=== PATIENT | female | born 1945 | race Caucasian/White ===

== ENCOUNTER 2018-05-27 17:46 | Emergency (ER) | payer OTHER ==
--- OUTSIDE RECORDS SUMMARY | 2018-05-27 17:48 | XMS REPORT ---
:1945 Author Organization eClinicalWorks Care Team Providers Name Role Phone Lorenza Nelson Provider Role Unavailable Allergies, Adverse Reactions, Alerts Substance Reaction Event Type N.K.D.A. Info Not Available Non Drug Allergy Problems Problem Type Condition Code Onset Dates Condition Status Problem Bladder mass N32.89 Active Problem Kidney stones N20.0 Active Assessment Kidney stones N20.0 Active Medications Medication Code Code Instructions Start End Status Dosage System Date Date Lisinopril [facility] 37438799102 5 MG Orally Active 1 tablet Once a day Pravastatin ND 80140045324 40 MG Orally Active 1 tablet Sodium Once a day Glimepiride ND 77077407926 1 MG Orally Active 1 tablet Once a day with breakfast or the first main meal of the day Cinnamon ND 89374890277 500 MG Orally Active not defined Antihistamine NDC 0 Active not defined [facility] 30646929000 - Orally Active not defined Gabapentin ND 64042077644 300 MG Orally Active 1 capsule Once a day before bedtime Results Name Result Date Reference Range Unit Abnormality Flag Uric Acid ----Uric Acid 4.3 20180321 2.6-6.0 mg/dL PTH Intact ----PTH Intact 32 20180321 12-88 pg/mL Summary Purpose eClinicalWorks Submission
--- OUTSIDE RECORDS SUMMARY | 2018-05-27 17:48 | XMS REPORT | Clinical Summary ---
:1945 Author Organization [employer] Address [address] [place] [address] Care Team Providers Name Role Phone Stevie Pack MD Primary Care Provider Allergies No Known Allergies Current Medications Prescription Sig. Disp. Refills Start Date End Date Status sodium,potassium,mag Take as directed 354 mL 0 01/11/2018 Active sulfates (SUPREP BOWEL by Physician. PREP KIT) 17.5-3.13-1.6 gram recon soln glimepiride (AMARYL) 1 MG Take 1 mg by mouth Active tablet daily before breakfast. gabapentin (NEURONTIN) Take 300 mg by Active 300 mg capsule mouth 3 (three) times a day. lisinopril Take 5 mg by mouth Active (PRINIVIL,ZESTRIL) 5 mg daily. tablet pravastatin (PRAVACHOL) Take 40 mg by Active 40 MG tablet mouth daily. traMADol (ULTRAM) 50 mg Take 50 mg by Active tablet mouth every 6 (six) hours as needed for moderate pain. cinnamon bark (CINNAMON) Take 500 mg by Active 500 mg capsule mouth daily. diphenhydrAMINE Take 25 mg by Active (BENADRYL) 25 mg tablet mouth nightly as needed for sleep. Active Problems Problem Noted Date Adenomatous polyp of descending colon 01/21/2018 Encounters Date Type Specialty Care Team Description 02/01/2018 Telephone General Surgery Leidy Haynes NP-C 01/21/2018 Hospital Encounter Gastroenterology Dallin Rosenthal MD 01/21/2018 Procedure Pass Gastroenterology 01/21/2018 Anesthesia Event Gastroenterology Stephan Manzo MD 01/21/2018 Procedure Pass Gastroenterology 01/21/2018 Surgery Gastroenterology Dallin Rosenthal COLONOSCOPY WITH MD Angelo POLYPECTOMY 01/11/2018 Orders Only General Surgery Patria Strauss MA 12/14/2017 Office Visit General Surgery Dallin Rosenthal Full incontinence of feces (Primary Dx); MD Angelo Polyp of descending colon, unspecified type after 05/26/2017 Family History Medical History Relation Name Comments Cancer Father Hypertension Father Stroke Father Cancer Mother Hypertension Mother Cancer Sister Diabetes Sister Relation Name Status Comments Father Mother Sister Social History Tobacco Use Types Packs/Day Years Used Date Never Smoker Smokeless Tobacco: Never Used Alcohol Use Drinks/Week oz/Week Comments No Sex Assigned at Date Recorded Not on file Last Filed Vital Signs Vital Sign Reading Time Taken Blood Pressure 145/63 01/21/2018 4:15 PM CDT Pulse 64 01/21/2018 4:15 PM CDT Temperature 36.9 C (98.5 F) 01/21/2018 4:15 PM CDT Respiratory Rate 27 01/21/2018 4:15 PM CDT Oxygen Saturation 99% 01/21/2018 4:15 PM CDT Inhaled Oxygen Concentration - - Weight 107 kg (236 lb) 01/21/2018 11:45 AM CDT Height 165.1 cm (5' 5") 01/21/2018 11:45 AM CDT Body Mass Index 39.27 01/21/2018 11:45 AM CDT Plan of Treatment Health Maintenance Due Date Last Done Comments BREAST CANCER SCREENING 1997 COLON CANCER SCREENING 1997 SHINGRIX VACCINE (#1) 1997 ZOSTER VACCINE 2007 PNEUMOCOCCAL POLYSACCHARIDE VACCINE AGE 65 AND OVER 2012 PNEUMOCOCCAL-13 2012 INFLUENZA VACCINE 04/17/2018 Implants Implanted Type Area Medical Scheduler Device Expiration Model / Identifier Date Serial / Lot Clip Resolution 360 Mr Cndtl 235cm 2.8mm 11mm Opening - [id number] Surgical N /A: N/A BSC ENDOSCOPY [id number] / Implanted: 01/21/2018 (Quantity not on file) Implants; / Expanders; Extenders; Surgical Wires Procedures Procedure Name Priority Date/Time Associated Comments Diagnosis SURGICAL PATHOLOGY Routine 01/21/2018 4:30 Results for this REQUEST PM CDT procedure are in the results section. COLONOSCOPY 01/21/2018 1:52 Colon polyp PM CDT POC GLUCOSE Routine 01/21/2018 11:54 Results for this AM CDT procedure are in the results section. after 05/26/2017 Results Surgical pathology request (01/21/2018 4:30 PM) [facility] DEPARTMENT OF PATHOLOGY AND GENOMIC MEDICINE Surgical pathology report See link below for PDF [facility] DEPARTMENT OF Lab Report PATHOLOGY AND GENOMIC MEDICINE Result status This is Final Report to [facility] DEPARTMENT OF [id number] PATHOLOGY AND GENOMIC MEDICINE Performing Organization Address City/[facility] Phone Number [facility] DEPARTMENT OF PATHOLOGY AND [address] [place] [id number] GENOMIC MEDICINE POC glucose (01/21/2018 11:54 AM) POC glucose 105 (H) 65 - 99 mg/dL [facility] DEPARTMENT OF PATHOLOGY AND Comment: GENOMIC MEDICINE Meter ID: [id number] Neurology Tech: Gabriella Schaeffer Performing Organization Address City/State/Zipcode Phone Number [facility] DEPARTMENT OF PATHOLOGY AND [address] [place] [phone] GENOMIC MEDICINE after 05/26/2017 Insurance Payer Benefit Plan / Group Subscriber ID Type Phone Address MEDICARE MEDICARE PART A AND B xxxxxxxxxx Medicare [place], [place] [employer] AND [employer] AND xxxxxxxxx Commercial CASUALTY CASUALTY Home: [address] [place] [id number] [place], [place] [phone]
--- OUTSIDE RECORDS SUMMARY | 2018-05-27 17:48 | XMS REPORT ---
[...] Start End Status Dosage System Date Date [facility] 43929760011 - Orally Active not defined Gabapentin ND 18684334928 300 MG Orally Active 1 capsule Once a day before bedtime Glimepiride ND 70809932137 1 MG Orally Active 1 tablet Once a day with breakfast or the first main meal of the day Pravastatin ND 52455664899 40 MG Orally Active 1 tablet Sodium Once a day Cinnamon ND 50619559642 500 MG Orally Active not defined Antihistamine NDC 0 Active not defined Lisinopril ND 01826028213 5 MG Orally Active 1 tablet Once a day Results No Known Results Summary Purpose eClinicalWorks Submission
[2018-05-27] MEDS ORDERED: TETANUS & DIPHTHERIA TOX,ADULT 0.5 ML VIAL ONE (18:05)
--- NOTE | 2018-05-27 18:08 | ER ---
Nurse's Notes [facility] Name: Laury Alfred Age: 72 yrs Sex: Female : 1945 Arrival Date: 05/27/2018 Time: 17:47 Bed DIS1 Private MD: Stevie Latham R Diagnosis: Abrasion of knee Presentation: 05/27 17:48 Presenting complaint: Patient states: i slipped and fell in front of the ED, denies hj hitting head and LOC; visible abrasions on bilateral leg;. Transition of care: patient was not received from another setting of care. Onset of symptoms was May 27, 2018. Risk Assessment: Do you want to hurt yourself or someone else? Patient reports no desire to harm self or others. Initial Sepsis Screen: Does the patient meet any 2 criteria? No. Patient's initial sepsis screen is negative. Does the patient have a suspected source of infection? No. Patient's initial sepsis screen is negative. Care prior to arrival: None. 17:48 Method Of Arrival: Ambulatory 17:48 Acuity: SUKH 4 17:57 Mechanism of Injury: Fall. Trauma event details: Injury occurred in the [facility], Injury occurred: in a public building. Injury occurred: May 27, 2018. Triage Assessment: 17:53 General: Appears in no apparent distress. uncomfortable, Behavior is calm, cooperative, hj appropriate for age. Pain: Complains of pain in right leg and left leg. Trauma Activation: Not Applicable Physician: ED Physician; Name: ; Notified At: ; Arrived At: Physician: General Surgeon; Name: ; Notified At: ; Arrived At: Physician: Radiology; Name: ; Notified At: ; Arrived At: Physician: Respiratory; Name: ; Notified At: ; Arrived At: Physician: Lab; Name: ; Notified At: ; Arrived At: Historical: - Allergies: 17:53 No Known Allergies; - Home Meds: 17:53 gabapentin 100 mg Oral cap 4 caps daily [Active]; glimepiride 1 mg Oral tab 1 tab once hj daily [Active]; lisinopril 5 mg Oral tab 1 tab once daily [Active]; meloxicam 7.5 mg Oral tab 1 tab once daily [Active]; metformin 1,000 mg Oral tab 1 tab 2 times per day [Active]; pravastatin 40 mg Oral tab 1 tab once daily [Active]; - PMHx: 17:53 Diabetes - NIDDM; High Cholesterol; Hypertension; neuropathy; spinal stenosis; hj Non-Hodgkins Lymphona; - PSHx: 17:53 Tubal ligation; Small Intestine; Hysterectomy; Hernia repair; hj - Immunization history:: Adult Immunizations up to date. - Social history:: Smoking status: Patient/guardian denies using tobacco, Patient/guardian denies using alcohol, street drugs, The patient lives with family. - Immunization history: Last tetanus immunization: unknown. - Ebola Screening: : Patient negative for fever greater than or equal to 101.5 degrees Fahrenheit, and additional compatible Ebola Virus Disease symptoms Patient denies exposure to infectious person Patient denies travel to an Ebola-affected area in the 21 days before illness onset. - Family history:: not pertinent. Screenin:54 Abuse screen: Denies threats or abuse. Denies injuries from another. Nutritional hj screening: No deficits noted. Tuberculosis screening: No symptoms or risk factors identified. Fall Risk None identified. Primary Survey: 17:50 A: Airway: patent, No supplemental oxygen in use on arrival. Oral cavity: clear, gag hj reflex present, Trachea midline. Breathing/Chest: Respiratory pattern: regular, Respiratory effort: spontaneous, unlabored, Breath sounds: clear, bilaterally. Chest inspection: symmetrical rise and fall of the chest. Circulation: Cardiac rhythm: sinus rhythm Heart tones present. Pulses: palpable right radial artery and left radial artery. Skin color: pink, Skin temperature: warm, dry. Disability Alert. 17:56 Reassessment Airway Airway Patent Oxygen No O2 Oral cavity Clear +Gag reflex Trachea hj Midline Breathing/Chest Respiratory pattern Regular Respiratory effort Spontaneous Unlabored Breath sounds Clear Chest inspection Symmetrical Circulation Heart rhythm Sinus rhythm Heart tones Present Pulses Palpable Color [place] Temperature Warm Dry Disability Alert. Vital Signs: 17:54 BP 157 / 88; Pulse 66; Resp 18; Temp 98.1(O); Pulse Ox 97% on R/A; Weight 102.06 kg; hj Height 5 ft. 5 in. (165.10 cm); Pain 4/10; 17:54 Body Mass Index 37.44 (102.06 kg, 165.10 cm) Alfred Coma Score: 17:54 Eye Response: spontaneous(4). Verbal Response: oriented(5). Motor Response: obeys hj commands(6). Total: 15. Trauma Score (Adult): 17:54 Eye Response: spontaneous(1); Verbal Response: oriented(1); Motor Response: obeys hj commands(2); Systolic BP: > 89 mm Hg(4); Respiratory Rate: 10 to 29 per min(4); Pavan Score: 15; Trauma Score: 12 ED Course: 17:47 Patient arrived in ED. rg4 17:47 Stevie Latham MD is Private Physician. rg4 17:48 Fernando Mcgee RN is Primary Nurse. hj 17:48 Jazz Conrad MD is Attending Physician. ma2 17:49 Triage completed. hj 17:57 Arm band placed on right wrist. hj 17:57 Patient has correct armband on for positive identification. Bed in low position. Call hj light in reach. Side rails up X 1. Adult w/ patient. 17:57 Patient maintains SpO2 saturation greater than 95% on room air. hj 17:58 Thermoregulation: warm blanket given to patient. hj 18:06 Wound care: to road rash. 5 18:07 Pulse ox on. NIBP on. 5 18:21 No provider procedures requiring assistance completed. Patient did not have IV access hj during this emergency room visit. Administered Medications: 17:49 Drug: Tetanus-Diphtheria Toxoid Adult 0.5 ml {Insurance Agents Supervisor: [employer]. Exp: 06/05/2021. Lot #: [id number]. } Route: IM; Site: left deltoid; 18:04 Follow up: Response: No adverse reaction hj Intake: 18:22 PO: 0ml; Total: 0ml. hj Output: 18:22 Urine: 0ml; Total: 0ml. hj Outcome: 18:08 Discharge ordered by . ma2 18:21 Discharged to home ambulatory. hj 18:21 Condition: stable 18:21 Discharge instructions given to patient, family, Instructed on discharge instructions, follow up and referral plans. wound care, Demonstrated understanding of instructions, follow-up care, wound care. 18:22 Patient's length of stay was not longer than 2 hours. hj 18:22 Patient left the ED. Signatures: Fernando Mcgee RN RN hj Garcia, Rubi 4 Shruti Sal [facility] Alzahri, Mohammad, MD MD ma2
--- NOTE | 2018-05-27 18:08 | EDPHYS ---
Physician Documentation [facility] Name: Laury Alfred Age: 72 yrs Sex: Female : 1945 Arrival Date: 05/27/2018 Time: 17:47 Bed DIS1 Private MD: Stevie Latham R ED Physician Jazz Conrad HPI: 05/27 18:05 This 72 yrs old Female presents to ER via Ambulatory with complaints of Fall ma2 Injury. 18:05 Details of fall: The patient fell from an upright position. Onset: The symptoms/episode ma2 began/occurred suddenly, 1 hour(s) ago. Associated injuries: The patient sustained both knees. Severity of symptoms: At their worst the symptoms were mild, in the emergency department the symptoms are unchanged. The patient has not experienced similar symptoms in the past. tripped and fell on both knees has abrasion . Historical: - Allergies: 17:53 No Known Allergies; hj - Home Meds: 17:53 gabapentin 100 mg Oral cap 4 caps daily [Active]; glimepiride 1 mg Oral tab 1 tab once hj daily [Active]; lisinopril 5 mg Oral tab 1 tab once daily [Active]; meloxicam 7.5 mg Oral tab 1 tab once daily [Active]; metformin 1,000 mg Oral tab 1 tab 2 times per day [Active]; pravastatin 40 mg Oral tab 1 tab once daily [Active]; - PMHx: 17:53 Diabetes - NIDDM; High Cholesterol; Hypertension; neuropathy; spinal stenosis; hj Non-Hodgkins Lymphona; - PSHx: 17:53 Tubal ligation; Small Intestine; Hysterectomy; Hernia repair; hj - Immunization history:: Adult Immunizations up to date. - Social history:: Smoking status: Patient/guardian denies using tobacco, Patient/guardian denies using alcohol, street drugs, The patient lives with family. - Immunization history: Last tetanus immunization: unknown. - Ebola Screening: : Patient negative for fever greater than or equal to 101.5 degrees Fahrenheit, and additional compatible Ebola Virus Disease symptoms Patient denies exposure to infectious person Patient denies travel to an Ebola-affected area in the 21 days before illness onset. - Family history:: not pertinent. ROS: 18:05 Skin: Positive for abrasion(s), Negative for abscesses, avulsion, diaphoresis, ma2 ecchymosis, rash, ulceration. 18:05 All other systems are negative. 18:08 Constitutional: Negative for fever, chills, and weight loss. ma2 Exam: 18:05 Constitutional: This is a well developed, well nourished patient who is awake, alert, ma2 and in no acute distress. Head/Face: Normocephalic, atraumatic. Chest/axilla: Normal chest wall appearance and motion. Nontender with no deformity. No lesions are appreciated. Cardiovascular: Regular rate and rhythm with a normal S1 and S2. No gallops, murmurs, or rubs. Normal PMI, no JVD. No pulse deficits. Respiratory: Lungs have equal breath sounds bilaterally, clear to auscultation and percussion. No rales, rhonchi or wheezes noted. No increased work of breathing, no retractions or nasal flaring. Neuro: Awake and alert, GCS 15, oriented to person, place, time, and situation. Cranial nerves II-XII grossly intact. Motor strength 5/5 in all extremities. Sensory grossly intact. Cerebellar exam normal. Normal gait. 18:05 Musculoskeletal/extremity: ROM: intact in all extremities, Circulation is intact in all extremities. Pulses: Sensation intact. has abrasion of both knees . Vital Signs: 17:54 BP 157 / 88; Pulse 66; Resp 18; Temp 98.1(O); Pulse Ox 97% on R/A; Weight 102.06 kg; hj Height 5 ft. 5 in. (165.10 cm); Pain 4/10; 17:54 Body Mass Index 37.44 (102.06 kg, 165.10 cm) [place] Coma Score: 17:54 Eye Response: spontaneous(4). Verbal Response: oriented(5). Motor Response: obeys commands(6). Total: 15. Trauma Score (Adult): 17:54 Eye Response: spontaneous(1); Verbal Response: oriented(1); Motor Response: obeys commands(2); Systolic BP: > 89 mm Hg(4); Respiratory Rate: 10 to 29 per min(4); Pavan Score: 15; Trauma Score: 12 MDM: 18:04 Patient medically screened. ma2 18:05 Differential diagnosis: abrasion, contusion, sprain, strain. Data reviewed: vital ma2 signs, nurses notes. Counseling: I had a detailed discussion with the patient and/or guardian regarding: the historical points, exam findings, and any diagnostic results supporting the discharge/admit diagnosis, the presence of at least one elevated blood pressure reading (>120/80) during this emergency department visit, the need for outpatient follow up. Response to treatment: the patient's symptoms have markedly improved after treatment. 05/27 17:49 Order name: Wound Care; Complete Time: 17:58 ma2 Administered Medications: 17:49 Drug: Tetanus-Diphtheria Toxoid Adult 0.5 ml {C 13 Catapult Operator: [employer]. Exp: hj 06/05/2021. Lot #: [id number]. } Route: IM; Site: left deltoid; 18:04 Follow up: Response: No adverse reaction Disposition: 05/27/18 18:08 Discharged to Home. Impression: Abrasion of knee. - Condition is Stable. - Discharge Instructions: Abrasion. - Medication Reconciliation Form, Thank You Letter, Antibiotic Education, Prescription Opioid Use form. - Follow up: Private Physician; When: Tomorrow; Reason: Continuance of care. - Problem is new. - Symptoms are resolved. Signatures: Fernando Mcgee RN RN hj Alzahri, Mohammad, MD MD ma2 Corrections: (The following items were deleted from the chart) 18:22 18:08 05/27/2018 18:08 Discharged to Home. Impression: Abrasion of knee. Condition is hj Stable. Forms are Medication Reconciliation Form, Thank You Letter, Antibiotic Education, Prescription Opioid Use. Follow up: Private Physician; When: Tomorrow; Reason: Continuance of care. Problem is new. Symptoms are resolved. ma2
[2018-05-27 18:27] VITALS: BP 157/88; TEMP 98.1; O2SAT 97
== END 2018-05-27 18:22 | disposition home or self-care (01) ==
LOC: ER 17:46
DX: S80.212A Abrasion, left knee, initial encounter (principal); S80.211A Abrasion, right knee, initial encounter; W01.0XXA Fall on same level from slipping, tripping and stumbling without subsequent striking against object, initial encounter; Y93.9 Activity, unspecified; Y92.9 Unspecified place or not applicable; Z23 Encounter for immunization; Z85.72 Personal history of non-Hodgkin lymphomas; I10 Essential (primary) hypertension; E11.9 Type 2 diabetes mellitus without complications; E78.00 Pure hypercholesterolemia, unspecified
CPT/HCPCS: 90714; 99284

== ENCOUNTER 2018-10-25 06:03 | Emergency (ER) | payer OTHER ==
--- OUTSIDE RECORDS SUMMARY | 2018-10-25 06:06 | XMS REPORT ---
[...] End Status Dosage System Date Date Lisinopril [facility] 52663285013 5 MG Orally Active 1 tablet Once a day Pravastatin ND 91926218106 40 MG Orally Active 1 tablet Sodium Once a day Glimepiride ND 88982650221 1 MG Orally Active 1 tablet Once a day with breakfast or the first main meal of the day Cinnamon ND 28395002893 500 MG Orally Active not defined Antihistamine NDC 0 Active not defined [facility] 58458526172 - Orally Active not defined Gabapentin ND 58221777201 300 MG Orally Active 1 capsule Once a day before bedtime Results Name Result Date Reference Range Unit Abnormality Flag Uric Acid ----Uric Acid 4.3 [id number] 2.6-6.0 mg/dL PTH Intact ----PTH Intact 32 20180321 12-88 pg/mL Summary Purpose eClinicalWorks Submission
--- OUTSIDE RECORDS SUMMARY | 2018-10-25 06:06 | XMS REPORT | Clinical Summary ---
:1945 Author Organization [employer] Address [address] [place] [address] Care Team Providers Name Role Phone Stevie Pack MD Primary Care Provider Allergies No Known Allergies Medications Medication Sig Dispensed Refills Start Date End Date Status sodium,potassium,mag Take as directed 354 mL 0 01/11/2018 Active sulfates (SUPREP BOWEL by Physician. PREP KIT) 17.5-3.13-1.6 gram recon soln glimepiride (AMARYL) 1 Take 1 mg by 0 Active MG tablet mouth daily before breakfast. gabapentin (NEURONTIN) Take 300 mg by 0 Active 300 mg capsule mouth 3 (three) times a day. lisinopril Take 5 mg by 0 Active (PRINIVIL,ZESTRIL) 5 mg mouth daily. tablet pravastatin (PRAVACHOL) Take 40 mg by 0 Active 40 MG tablet mouth daily. traMADol (ULTRAM) 50 mg Take 50 mg by 0 Active tablet mouth every 6 (six) hours as needed for moderate pain. cinnamon bark (CINNAMON) Take 500 mg by 0 Active 500 mg capsule mouth daily. diphenhydrAMINE Take 25 mg by 0 Active (BENADRYL) 25 mg tablet mouth nightly as needed for sleep. Active Problems Problem Noted Date Adenomatous polyp of descending colon 01/21/2018 Encounters Date Type Specialty Care Team Description 02/01/2018 Telephone General Surgery Leidy Haynes NP-C 01/21/2018 Anesthesia Event Gastroenterology Stephan Manzo MD 01/21/2018 Surgery Gastroenterology Dallin Rosenthal COLONOSCOPY WITH MD Angelo POLYPECTOMY 01/21/2018 Hospital Encounter Gastroenterology Dallin Rosenthal MD 01/11/2018 Orders Only General Surgery Patria Strauss MA 12/14/2017 Office Visit General Surgery Dallin Rosenthal Full incontinence of feces (Primary Dx); MD Angelo Polyp of descending colon, unspecified type after 10/24/2017 Family History Medical History Relation Name Comments Cancer Father Hypertension Father Stroke Father Cancer Mother Hypertension Mother Cancer Sister Diabetes Sister Relation Name Status Comments Father Mother Sister Social History Tobacco Use Types Packs/Day Years Used Date Never Smoker Smokeless Tobacco: Never Used Alcohol Use Drinks/Week oz/Week Comments No Sex Assigned at Date Recorded Not on file Job Start Date Occupation Industry Not on file Not on file Not on file Travel History Travel Start Travel End No recent travel history available. Last Filed Vital Signs Vital Sign Reading [...] CANCER SCREENING 1997 COLON CANCER SCREENING 1997 SHINGLES VACCINES (1 of 2) 1997 PNEUMOCOCCAL POLYSACCHARIDE VACCINE AGE 65 AND OVER 2012 PNEUMOCOCCAL-13 2012 INFLUENZA VACCINE 04/17/2018 Implants Implanted Type Area Coding Advisor Device Shelf Model / Identifier Expiration Serial / Date Lot Clip Resolution 360 Mr Cndtl 235cm 2.8mm 11mm Opening - [id number] Surgical N /A: N/A [employer] ENDOSCOPY [id number] / Implanted: 01/21/2018 (Quantity not on file) Implants; / Expanders; Extenders; Surgical Wires Procedures Procedure Name Priority Date/Time Associated Comments Diagnosis SURGICAL PATHOLOGY Routine 01/21/2018 4:30 Results for this REQUEST PM CDT procedure are in the results section. COLONOSCOPY 01/21/2018 1:52 Colon polyp PM CDT POC GLUCOSE Routine 01/21/2018 11:54 Results for this AM CDT procedure are in the results section. after 10/24/2017 Results Surgical pathology request (01/21/2018 4:30 PM CDT) [facility] DEPARTMENT OF PATHOLOGY AND GENOMIC MEDICINE Surgical pathology report See link below for PDF [facility] DEPARTMENT OF Lab Report PATHOLOGY AND GENOMIC MEDICINE Result status This is Final Report to [facility] DEPARTMENT OF [id number] PATHOLOGY AND GENOMIC MEDICINE Performing Organization Address City/[facility] Phone Number [facility] DEPARTMENT OF PATHOLOGY AND [address] [place] [address] GENOMIC MEDICINE POC glucose (01/21/2018 11:54 AM CDT) POC glucose 105 (H) 65 - 99 mg/dL [facility] DEPARTMENT OF PATHOLOGY AND Comment: GENOMIC MEDICINE Meter ID: [id number] Technician Biological Health: Gabriella Schaeffer Performing Organization Address City/[facility] Phone Number [facility] DEPARTMENT OF PATHOLOGY AND [address] [place] [address] GENOMIC MEDICINE after 10/24/2017 Insurance Payer Benefit Plan / Group Subscriber ID Type Phone Address MEDICARE MEDICARE PART A AND B xxxxxxxxxx Medicare [place], [place] [employer] AND xxxxxxxxx Commercial CASUALTY CASUALTY ([place]) [place] [address] Advance Directives Patient has advance care planning documents on file. For more information, please contact:Evgeny Mares[address] [place] [phone]
--- OUTSIDE RECORDS SUMMARY | 2018-10-25 06:06 | XMS REPORT | Continuity of Care Document ---
:1945 Author Organization Interface Problems Problem Status Onset Date Classification Date Comments Source Reported Medications Medication Details Route Status Patient Ordering Order Source Instructions Provider Date Allergies, Adverse Reactions, Alerts Substance Category Reaction Severity Reaction Status Date Comments Source type Reported Immunizations Immunization Date Given Site Status Last Updated Comments Source Results Order Results Value Reference Date Interpretation Comments Source Name Range Vital Signs Vital Sign Value Date Comments Source Encounters Location Location Encounter Encounter Reason Attending ADM DC Status Source Details Type Number For Provider Date Date Visit Outpatient [id number] [facility] [facility] Procedures Procedure Code Date Perfomer Comments Source
--- OUTSIDE RECORDS SUMMARY | 2018-10-25 06:06 | XMS REPORT ---
[...] Status Dosage System Date Date [facility] [id number] - Orally Active not defined Gabapentin ND 97228302952 300 MG Orally Active 1 capsule Once a day before bedtime Glimepiride ND 76365332183 1 MG Orally Active 1 tablet Once a day with breakfast or the first main meal of the day Pravastatin ND 47638594367 40 MG Orally Active 1 tablet Sodium Once a day Cinnamon ND 71173423682 500 MG Orally Active not defined Antihistamine NDC 0 Active not defined Lisinopril ND 62014144266 5 MG Orally Active 1 tablet Once a day Results No Known Results Summary Purpose eClinicalWorks Submission
[2018-10-25 06:37] LABS: Absolute Monocytes 0.5 K/uL (0.1-1.3); Absolute Neutrophil 5.5 K/uL (1.8-8.0); Basophils % 0.8 % (0-1.3); Eosinophils % 1.9 % (0-4.4); Hematocrit 41.3 % (36.0-45.0); Lymphocytes % 24.2 % (15.3-44.8); MPV 7.9 fL (7.6-11.3); Monocytes % 6.6 % (3.3-12.3); RBC Red Blood Cell Count 4.72 M/uL (3.86-4.86)
[2018-10-25 06:41] LABS: Protime INR 1.02
[2018-10-25 06:54] LABS: ALT/SGPT 20 U/L (12-78); AST/SGOT 14 U/L (15-37); Alkaline Phosphatase 77 U/L (45-117); BUN Blood Urea Nitrogen 15 mg/dL (7-18); Bicarbonate 27 mmol/L (21-32); Bilirubin Direct 0.1 mg/dL (0-0.2); Bilirubin Total 0.4 mg/dL (0.2-1.0); Glucose Level 122 mg/dL (74-106); Magnesium 1.8 mg/dL (1.8-2.4); NT PRO-BNP 72 pg/mL (<125); Potassium 3.7 mmol/L (3.5-5.1); Protein, Total 7.4 g/dL (6.4-8.2); Sodium Level 144 mmol/L (136-145); Troponin (Emerg Dept Use Only) < 0.02 ng/mL (0.0-0.045)
[2018-10-25] MEDS ORDERED: NA CHLORIDE 0.9% 500 ML ONE (07:53)
--- NOTE | 2018-10-25 08:13 | RAD REPORT ---
EXAM DESCRIPTION: CT - Head C Spine Mpr Wo Con - 10/25/2018 6:50 am CLINICAL HISTORY: Syncope. Head and neck injury status post fall. Head and neck pain COMPARISON: [address] TECHNIQUE: Computed axial tomography of the head and cervical spine was obtained. Sagittal and coronal reconstruction was performed. All CT scans are performed using dose optimization technique as appropriate and may include automated exposure control or mA/KV adjustment according to patient size. FINDINGS: An intracranial bleed is not seen. The ventricles are normal in caliber. An extra-axial fl uid collection is not noted.Fluid within the visualized sinuses and mastoids is not seen A cervical fracture is not visualized. No dislocation is noted. Spondylosis C6-7 results in mild cent ral spinal stenosis IMPRESSION: No acute intracranial abnormality is seen. A cervical fracture is not visualized. If the patient continues to have symptoms to suggest intracra nial /spinal cord pathology then MRI would be recommended
--- NOTE | 2018-10-25 08:17 | EKG ---
Test Date: 2018-10-25 Test Time: 06:18:44 Full Time Babysitter: LULI MEASUREMENT RESULTS: Intervals: Rate: 59 PA: 182 QRSD: 90 QT: 448 QTc: 443 [place]: P: 63 PA: 182 QRS: 21 T: 29 INTERPRETIVE STATEMENTS: Sinus bradycardia Possible Septal infarct, age undetermined Abnormal ECG Compared to ECG 11/21/2014 15:12:11 Questionable myocardial infarct finding now present Sinus rhythm no longer present Electronically Signed On 10-25-18 08:16:44 CAN CARRIER by Oscar Frost
--- NOTE | 2018-10-25 08:45 | RAD REPORT ---
EXAM DESCRIPTION: Faustina Single View10/25/2018 7:08 am CLINICAL HISTORY: Chest pain COMPARISON: 2014 FINDINGS: The lungs appear clear of acute infiltrate. The heart is normal size IMPRESSION: No acute abnormalities displayed
[2018-10-25 08:55] LABS: Urine Bacteria 20-50 /HPF (<20); Urine Culture Reflex Order NOT NEEDED; Urine RBC <5 /HPF (NONE SEEN)
--- NOTE | 2018-10-25 09:47 | RAD REPORT ---
EXAM DESCRIPTION: USCarotid Artery Bilateral10/25/2018 8:48 am CLINICAL HISTORY: Syncope COMPARISON: None FINDINGS: The velocity of the right internal carotid artery equals 86 cm/sec. The right ICA/CCA rati o 1.4 The velocity of the left internal carotid artery equals 116 cm/sec. The left ICA/CCA ratio 2.3 Mild plaque is present within the carotid arteries. The vertebral arteries demonstrate antegrade flow IMPRESSION: Mild plaque within the carotid arteries without evidence of a hemodynamically significan t stenosis NASCET criteria used. Mild 0-49% stenosis Moderate 50-69% stenosis Severe 70-99% stenosis
--- NOTE | 2018-10-25 11:11 | RAD REPORT ---
EXAM DESCRIPTION: MRI - MRA Head Wo Cont - 10/25/2018 10:59 am CLINICAL HISTORY: Syncope, fall, stroke-like symptoms COMPARISON: None. TECHNIQUE: Axial and coronal 3D kqkz-rt-[id number] image acquisition was performed. 3D rotational images were generated with source and reconstruction images reviewed. Horizontal and vertical axis rotation al views generated using MIP protocol. FINDINGS: No aneurysm or vascular malformation. No significant atherosclerotic changes identified. B asilar artery and distal vertebral artery show no suspicious findings. Distal internal carotid artery 's also without significant finding or disease. Imaging is extended to internal carotid artery origin s. No significant luminal narrowing identified in either internal carotid artery from origin to supra clinoid termination. No dissection findings. Imaged portions of the vertebral arteries also without s ignificant disease. IMPRESSION: MRA Head imaging shows no occlusion, significant stenosis or other significant intracran ial finding.
--- NOTE | 2018-10-25 11:17 | RAD REPORT ---
EXAM DESCRIPTION: MRI - Brain W/Wo Cont - 10/25/2018 11:00 am CLINICAL HISTORY: Syncope stroke-like symptoms, fall with head injury COMPARISON: CT head October 25, MRI May 2015 TECHNIQUE: Sagittal and axial T1-weighted images were obtained. Axial PD/heavily T2-weighted and T2- FLAIR images were obtained along with axial DWI/ADC mapping sequences. Coronal heavily T2 weighted s equence obtained. Axial and coronal post-contrast T1-weighted images were also obtained. A 19 ml Mul tihance contrast following utilized. FINDINGS: No intracranial hemorrhage, mass or acute infarction. There is no edema or shift of midli ne structures. No extra-axial fluid collections. Rahman-matter/white matter junction is preserved. Sig nal voids are seen as a normal finding in the major intracranial vessels. No significant atrophy godwin ges are present. Patient has scattered chronic ischemic change in the cerebral white matter primarily left frontal lobe. Pattern is not substantially different from the 2015 MRI study. Ventricles are no rmal. No globe or orbital content abnormality. Post-contrast images show normal enhancement. No dural thickening. Mastoid air cells and paranasal sinuses are clear. IMPRESSION: No acute infarction changes are present. No acute intracranial finding seen. Mild chronic ischemic changes primarily left frontal lobe similar or only minimally progressive from 2015 MRI.
--- NOTE | 2018-10-25 11:19 | RAD REPORT ---
EXAM DESCRIPTION: MRI - MRA Neck W/Wo Cont - 10/25/2018 11:11 am CLINICAL HISTORY: Syncope, fall, stroke-like symptoms COMPARISON: None. TECHNIQUE: Axial and coronal 3D wmld-op-[id number] image acquisition was performed. 3D rotational images were generated with source and reconstruction images reviewed. Horizontal and vertical axis rotation al views generated using MIP protocol. FINDINGS: Aortic arch is 3 vessel origin with no origin stenosis. Codominant vertebral arteries show no origins stenosis. No dissection is present. There is no significant atherosclerotic change or lum inal narrowing identifiable. No basilar artery abnormality seen. There is no aneurysm or vascular mal formation. Imaged portions of each subclavian artery also unremarkable. IMPRESSION: MRA neck imaging shows no significant atherosclerotic change, dissection or significant vascular finding.
--- NOTE | 2018-10-25 12:14 | EDPHYS ---
Physician Documentation [facility] Name: Laury Alfred Age: 73 yrs Sex: Female : 1945 Arrival Date: 10/25/2018 Time: 06:05 Bed 4 Private MD: Stevie Latham R ED Physician Rc Brannon HPI: 10/25 07:00 This 73 yrs old Female presents to ER via Ambulatory with complaints of Fall pm1 Injury, Syncope. 07:00 Details of fall: The patient fell from an upright position, while standing. Onset: The pm1 symptoms/episode began/occurred at 04:30. Associated injuries: The patient sustained injury to the head, contusion. Severity of symptoms: in the emergency department the symptoms have improved. The patient has not experienced similar symptoms in the past. The patient has not recently seen a physician. Patient was standing in the kitchen getting ready to make coffee. She felt a little dizzy and then she passed out. Hit the right side of head on the counter she believes. Patient's fall was heard by her and he assisted her up. she was able to help him get ready for his dialysis treatment and then she present to the ER with her daugther. Historical: - Allergies: 06:27 No Known Allergies; bb - Home Meds: 06:27 gabapentin 300 mg oral cap 1 cap twice a day [Active]; glimepiride 1 mg Oral tab 1 tab bb once daily [Active]; pravastatin 40 mg Oral tab 1 tab once daily [Active]; lisinopril 5 mg Oral tab 1 tab once daily [Active]; lisinopril 5 mg Oral tab 1 tab once daily [Active]; Cinnamon oral oral [Active]; Benadryl Oral [Active]; eye vitamins [Active]; - PMHx: 06:27 Diabetes - NIDDM; High Cholesterol; Hypertension; neuropathy; Non-Hodgkins Lymphona; bb spinal stenosis; non-hodgkins lymphoma; - PSHx: 06:27 Tubal ligation; Small Intestine; Hysterectomy; Hernia repair; bb - Immunization history:: Adult Immunizations up to date. - Social history:: Smoking status: Patient/guardian denies using tobacco, Patient uses alcohol, occasionally. Patient/guardian denies using IV drugs. - Ebola Screening: : No symptoms or risks identified at this time. ROS: 07:00 Constitutional: Negative for fever, chills, and weight loss, Eyes: Negative for injury, pm1 pain, redness, and discharge, ENT: Negative for injury, pain, and discharge, Neck: Negative for injury, pain, and swelling, Cardiovascular: Negative for chest pain, palpitations, and edema, Respiratory: Negative for shortness of breath, cough, wheezing, and pleuritic chest pain, Abdomen/GI: Negative for abdominal pain, nausea, vomiting, diarrhea, and constipation, Back: Negative for injury and pain, : Negative for injury, bleeding, discharge, and swelling, MS/Extremity: Negative for injury and deformity, Skin: Negative for injury, rash, and discoloration. 07:00 Neuro: Positive for syncope, Negative for altered mental status, numbness, seizure activity, tingling, weakness. Exam: 07:00 Constitutional: This is a well developed, well nourished patient who is awake, alert, pm1 and in no acute distress. 07:00 Eyes: Pupils equal round and reactive to light, extra-ocular motions intact. Lids and lashes normal. Conjunctiva and sclera are non-icteric and not injected. Cornea within normal limits. Periorbital areas with no swelling, redness, or edema. ENT: Nares patent. No nasal discharge, no septal abnormalities noted. Tympanic membranes are normal and external auditory canals are clear. Oropharynx with no redness, swelling, or masses, exudates, or evidence of obstruction, uvula midline. Mucous membranes moist. Neck: Trachea midline, no thyromegaly or masses palpated, and no cervical lymphadenopathy. Supple, full range of motion without nuchal rigidity, or vertebral point tenderness. No Meningismus. Chest/axilla: Normal chest wall appearance and motion. Nontender with no deformity. No lesions are appreciated. Cardiovascular: Regular rate and rhythm with a normal S1 and S2. No gallops, murmurs, or rubs. Normal PMI, no JVD. No pulse deficits. Respiratory: Lungs have equal breath sounds bilaterally, clear to auscultation and percussion. No rales, rhonchi or wheezes noted. No increased work of breathing, no retractions or nasal flaring. Abdomen/GI: Soft, non-tender, with normal bowel sounds. No distension or tympany. No guarding or rebound. No evidence of tenderness throughout. Back: No spinal tenderness. No costovertebral tenderness. Full range of motion. Skin: Warm, dry with normal turgor. Normal color with no rashes, no lesions, and no evidence of cellulitis. MS/ Extremity: Pulses equal, no cyanosis. Neurovascular intact. Full, normal range of motion. 07:00 Head/face: Exam is negative for roberts signs, deformity, raccoon eyes, Noted is no obvious of injury or deformity except tenderness, that is mild, of the right frontal area. 07:00 Neuro: Orientation: is normal, Memory: is normal, Cranial nerves: CN II- XII are normal as tested, Cerebellar function: normal finger to nose testing, heel to tristan testing is normal, Motor: moves all fours, strength is normal, strength is 5/5 in all extremities, Sensation: is normal, no obvious gross deficits. Vital Signs: 06:27 BP 151 / 69; Pulse 61; Resp 16 S; Temp 97.9(O); Pulse Ox 96% on R/A; Weight 99.79 kg bb (R); Height 5 ft. 5 in. (165.10 cm) (R); Pain 2/10; 07:41 BP 130 / 60 Supine; Pulse 57; Resp 16; Pulse Ox 100% on R/A; dh3 07:43 BP 148 / 71 Sitting; Pulse 51; Resp 18; Pulse Ox 99% on R/A; dh3 07:45 BP 134 / 69 Standing; Pulse 62; Resp 17; Pulse Ox 99% ; dh3 08:30 BP 132 / 70; Pulse 62; Resp 18; Pulse Ox 100% on R/A; Pain 0/10; sg 11:30 BP 142 / 77; Pulse 66; Resp 17; Temp 97.8; Pulse Ox 99% on R/A; sg 06:27 Body Mass Index 36.61 (99.79 kg, 165.10 cm) bb MDM: 06:09 Patient medically screened. [facility] 08:28 Data reviewed: vital signs. Data interpreted: Pulse oximetry: on room air is 99 %. pm1 Interpretation: normal. 12:12 Counseling: I had a detailed discussion with the patient and/or guardian regarding: the pm1 historical points, exam findings, and any diagnostic results supporting the discharge/admit diagnosis, lab results, radiology results, the need for outpatient follow up, to return to the emergency department if symptoms worsen or persist or if there are any questions or concerns that arise at home. 10/25 06:18 Order name: Basic Metabolic Panel; Complete Time: 07:02 pm1 10/25 06:18 Order name: CBC with Diff; Complete Time: 06:49 pm1 10/25 06:18 Order name: LFT's; Complete Time: 07:02 pm1 10/25 06:18 Order name: Magnesium; Complete Time: 07:02 pm1 10/25 06:18 Order name: NT PRO-BNP; Complete Time: 07:02 pm1 10/25 06:18 Order name: PT-INR; Complete Time: 06:49 pm1 10/25 06:18 Order name: Troponin (emerg Dept Use Only); Complete Time: 07:02 pm1 10/25 06:18 Order name: XRAY Chest (1 view); Complete Time: 08:47 pm1 10/25 06:18 Order name: CT Head C Spine; Complete Time: 08:19 pm1 10/25 08:02 Order name: Glucose, Ancillary Testing; Complete Time: 08:02 EDMS 10/25 08:02 Order name: Urine Microscopic Only; Complete Time: 08:59 pm1 10/25 08:05 Order name: Urine Dipstick--Ancillary (enter results) eb 10/25 11:28 Order name: Troponin (emerg Dept Use Only); Complete Time: 12:12 pm1 10/25 11:28 Order name: Troponin (emerg Dept Use Only) sg 10/25 06:18 Order name: EKG; Complete Time: 06:19 pm1 10/25 06:18 Order name: Cardiac monitoring; Complete Time: 06:33 pm10/25 06:18 Order name: EKG - Nurse/Tech; Complete Time: 06:33 pm1 10/25 06:18 Order name: IV Saline Lock; Complete Time: 06:33 pm10/25 06:18 Order name: Labs collected and sent; Complete Time: 06:33 pm10/25 06:18 Order name: O2 Per Protocol; Complete Time: 06:33 pm1 10/25 06:18 Order name: O2 Sat Monitoring; Complete Time: 06:33 pm10/25 07:35 Order name: Orthostatics; Complete Time: 07:44 pm1 10/25 08:23 Order name: Carotid Artery Bilateral US; Complete Time: 10:01 pm1 10/25 10:13 Order name: MRA Head Wo Cont; Complete Time: 11:23 EDVT 10/25 10:29 Order name: MRA Neck W/Wo Cont; Complete Time: 11:23 EDVT 10/25 10:29 Order name: Brain W/Wo Cont; Complete Time: 11:23 EDMS Administered Medications: 08:04 Drug: NS 0.9% 500 ml Route: IV; Rate: bolus; Site: right antecubital; hb Disposition: 10/25/18 12:12 Discharged to Home. Impression: Syncope and collapse, Superficial injury of head. - Condition is Stable. - Discharge Instructions: Head Injury, Adult, Syncope. - Medication Reconciliation Form, Thank You Letter, Antibiotic Education, Prescription Opioid Use form. - Follow up: Emergency Department; When: As needed; Reason: Worsening of condition. Follow up: Private Physician; When: 2 - 3 days; Reason: Recheck today's complaints, Continuance of care, Re-evaluation by your physician. - Problem is new. - Symptoms have improved. Addendum: 10/28/2018 09:04 Co-signature as Attending Physician, Rc Brannon MD I agree with the assessment and c leigh plan of care. Signatures: Dispatcher [employer] [facility] Fernando Martinez, RN Rc Carrillo MD MD cha Ballard, Brenda, RN RN bb Addi Trujillo, GIFT WRAPPER GIFT WRAPPER pm1 Nilam Bhardwaj RN RN Corrections: (The following items were deleted from the chart) 10/25 10:13 08:28 MR STROKE PROTOCOL+MRI.RAD.BRZ ordered. [facility] 12:33 12:12 10/25/2018 12:12 Discharged to Home. Impression: Syncope and collapse; sg Superficial injury of head. Condition is Stable. Discharge Instructions: Head Injury, Adult, Syncope. Forms are Medication Reconciliation Form, Thank You Letter, Antibiotic Education, Prescription Opioid Use. Follow up: Emergency Department; When: As needed; Reason: Worsening of condition. Follow up: Private Physician; When: 2 - 3 days; Reason: Recheck today's complaints, Continuance of care, Re-evaluation by your physician. Problem is new. Symptoms have improved. pm1
--- NOTE | 2018-10-25 12:14 | ER ---
Nurse's Notes [facility] Name: Laury Alfred Age: 73 yrs Sex: Female : 1945 Arrival Date: 10/25/2018 Time: 06:05 Bed 4 Private MD: Stevie Latham R Diagnosis: Syncope and collapse;Superficial injury of head Presentation: 10/25 06:22 Presenting complaint: Patient states: she got up to make coffee this morning and passed bb out hitting the back of her head. Transition of care: patient was not received from another setting of care. Onset of symptoms was October 25, 2018. Risk Assessment: Do you want to hurt yourself or someone else? Patient reports no desire to harm self or others. Initial Sepsis Screen: Does the patient meet any 2 criteria? No. Patient's initial sepsis screen is negative. Does the patient have a suspected source of infection? No. Patient's initial sepsis screen is negative. Care prior to arrival: None. 06:22 Method Of Arrival: Ambulatory bb 06:22 Acuity: SUKH 3 bb Historical: - Allergies: 06:27 No Known Allergies; bb - Home Meds: 06:27 gabapentin 300 mg oral cap 1 cap twice a day [Active]; glimepiride 1 mg Oral tab 1 tab bb once daily [Active]; pravastatin 40 mg Oral tab 1 tab once daily [Active]; lisinopril 5 mg Oral tab 1 tab once daily [Active]; lisinopril 5 mg Oral tab 1 tab once daily [Active]; Cinnamon oral oral [Active]; Benadryl Oral [Active]; eye vitamins [Active]; - PMHx: 06:27 Diabetes - NIDDM; High Cholesterol; Hypertension; neuropathy; Non-Hodgkins Lymphona; bb spinal stenosis; non-hodgkins lymphoma; - PSHx: 06:27 Tubal ligation; Small Intestine; Hysterectomy; Hernia repair; bb - Immunization history:: Adult Immunizations up to date. - Social history:: Smoking status: Patient/guardian denies using tobacco, Patient uses alcohol, occasionally. Patient/guardian denies using IV drugs. - Ebola Screening: : No symptoms or risks identified at this time. Screenin:20 Abuse screen: Denies threats or abuse. Denies injuries from another. Nutritional sg screening: No deficits noted. Tuberculosis screening: No symptoms or risk factors identified. Never had TB. Fall Risk None identified. Assessment: 07:20 General: Appears in no apparent distress. well groomed, well developed, well nourished, sg Behavior is calm, cooperative, appropriate for age. Pain: Complains of pain in back of head and back of neck Quality of pain is described as throbbing. Neuro: Level of Consciousness is awake, alert, obeys commands, Oriented to person, place, time, situation, Registered Nurse [employer] are equal bilaterally Moves all extremities. Full function Speech is normal, Facial symmetry appears normal, Reports headache. Cardiovascular: Patient's skin is warm and dry. Respiratory: Airway is patent Respiratory effort is even, unlabored, Respiratory pattern is regular, symmetrical. GI: Abdomen is round non-distended. : No signs and/or symptoms were reported regarding the genitourinary system. EENT: No deficits noted. Derm: Skin is pink, warm \T\ dry. Musculoskeletal: No signs and/or symptoms reported regarding the musculoskeletal system. Vital Signs: 06:27 BP 151 / 69; Pulse 61; Resp 16 S; Temp 97.9(O); Pulse Ox 96% on R/A; Weight 99.79 kg bb (R); Height 5 ft. 5 in. (165.10 cm) (R); Pain 2/10; 07:41 BP 130 / 60 Supine; Pulse 57; Resp 16; Pulse Ox 100% on R/A; dh3 07:43 BP 148 / 71 Sitting; Pulse 51; Resp 18; Pulse Ox 99% on R/A; dh3 07:45 BP 134 / 69 Standing; Pulse 62; Resp 17; Pulse Ox 99% ; dh3 08:30 BP 132 / 70; Pulse 62; Resp 18; Pulse Ox 100% on R/A; Pain 0/10; sg 11:30 BP 142 / 77; Pulse 66; Resp 17; Temp 97.8; Pulse Ox 99% on R/A; sg 06:27 Body Mass Index 36.61 (99.79 kg, 165.10 cm) bb ED Course: 06:05 Patient arrived in ED. am2 06:05 Stevie Latham MD is Private Physician. am2 06:07 [facility] pm1 06:07 Rc Brannon MD is Attending Physician. pm1 06:24 Triage completed. bb 06:27 Arm band placed on Patient placed in an exam room, on a stretcher, on radiation monitor, bb on pulse oximetry. EKG completed in triage. Results shown to MD. 06:33 EKG done, by ED staff, reviewed by Rc Brannon MD. ds4 06:50 CT completed. Patient tolerated procedure well. Patient moved to CT via stretcher. Patient moved back from CT. 06:51 CT Head C Spine In Process Unspecified. EDMS 07:00 Patient has correct armband on for positive identification. Bed in low position. Call sg light in reach. Side rails up X2. nuclear monitoring technician on. Pulse ox on. NIBP on. Warm blanket given. Head of bed elevated. 07:00 IV inserted by Meron COLLINS. Inserted saline lock: 20 gauge in right antecubital area, sg using aseptic technique. Blood collected. 07:04 X-ray completed. Portable x-ray completed in exam room. kw 07:08 XRAY Chest (1 view) In Process Unspecified. EDMS 07:44 Fernando Martinez, RN is Primary Nurse. sg 08:04 Urine collected: hat, clear. dh3 08:48 Carotid Artery Bilateral US In Process Unspecified. EDMS 10:11 Patient moved to MRI via wheelchair. em2 10:58 MRA Head Wo Cont In Process Unspecified. EDMS 10:58 MRA Neck W/Wo Cont In Process Unspecified. EDMS 10:59 Brain W/Wo Cont In Process Unspecified. EDMS 11:33 MRI completed. Patient tolerated well. Patient moved back from MRI. em2 11:33 Repeat lab(s) drawn. by wv, sent to lab. dh3 12:30 No provider procedures requiring assistance completed. IV discontinued, intact, sg bleeding controlled, No redness/swelling at site. Pressure dressing applied. Administered Medications: 08:04 Drug: NS 0.9% 500 ml Route: IV; Rate: bolus; Site: right antecubital; hb Outcome: 12:12 Discharge ordered by MD. pm1 12:30 Discharged to home ambulatory, with family. sg 12:30 Condition: good 12:30 Discharge instructions given to patient, Instructed on discharge instructions, follow up and referral plans. safety practices, Demonstrated understanding of instructions, follow-up care. 12:33 Patient left the ED. sg Signatures: Dispatcher [employer] EDMS Fernando Martinez, RN RN sg Reynaldo Gross Brenda, RN RN Joyce Marlow Enrique 2 Moose Ricardo ds4 Addi Trujillo, EPIDEMIOLOGY INTERN EPIDEMIOLOGY INTERN pm1 Nilam Bhardwaj RN RN Angeline Douglas 2 Yadira Domingo 3
[2018-10-25 13:16] VITALS: BP 142/77; TEMP 97.8; O2SAT 99
[2018-10-25 14:19] LABS: Urine Blood NEGATIVE (NEG); Urine Glucose NEGATIVE (NEG); Urine Protein TRACE (NEG); Urine Specific Gravity 1.015 (1.005-1.030)
== END 2018-10-25 12:33 | disposition home or self-care (01) ==
LOC: ER 06:03
DX: S00.90XA Unspecified superficial injury of unspecified part of head, initial encounter (principal); W18.39XA Other fall on same level, initial encounter; Y93.89 Activity, other specified; Y92.000 Kitchen of unspecified non-institutional (private) residence as the place of occurrence of the external cause; Z85.72 Personal history of non-Hodgkin lymphomas; I10 Essential (primary) hypertension; E11.9 Type 2 diabetes mellitus without complications; E78.00 Pure hypercholesterolemia, unspecified
CPT/HCPCS: 36415; 70450; 70544; 70549; 70553; 71045; 72125; 80048; 80076; 82962; 83735; 83880; 84484 ×2; 85025; 85610; 93005; 93880; 99285; A9577; 81003; 81015

== ENCOUNTER 2018-12-30 00:36 | Emergency (ER) | payer OTHER ==
--- OUTSIDE RECORDS SUMMARY | 2018-12-30 00:38 | XMS REPORT | Continuity of Care Document ---
[...] Number For Provider Date Date [id number] [facility] [place] Procedures Procedure Code Date Perfomer Comments Source
--- OUTSIDE RECORDS SUMMARY | 2018-12-30 00:38 | XMS REPORT ---
[...] Status Dosage System Date Date [facility] [id number] - Orally Active not defined Gabapentin ND 58900747610 300 MG Orally Active 1 capsule Once a day before bedtime Glimepiride ND 77444197626 1 MG Orally Active 1 tablet Once a day with breakfast or the first main meal of the day Pravastatin ND 96185470574 40 MG Orally Active 1 tablet Sodium Once a day Cinnamon ND 03419862567 500 MG Orally Active not defined Antihistamine NDC 0 Active not defined Lisinopril ND 94382769643 5 MG Orally Active 1 tablet Once a day Results No Known Results Summary Purpose eClinicalWorks Submission
--- OUTSIDE RECORDS SUMMARY | 2018-12-30 00:38 | XMS REPORT ---
:1945 Author Organization eClinicalWorks Care Team Providers Name Role Phone Lorenza Nelson Provider Role Unavailable Allergies No Known Allergies Problems Problem Type Condition Code Onset Dates Condition Status Problem Bladder mass N32.89 Active Problem Kidney stones N20.0 Active Assessment Kidney stones N20.0 Active Medications Medication Code Code Instructions Start End Status Dosage System Date Date Cinnamon [facility] 96164471998 500 MG Orally Active not defined Antihistamine NDC 0 Active not defined Lisinopril [facility] 02544524017 5 MG Orally Active 1 tablet Once a day [facility] 09869875912 - Orally Active not defined Pravastatin [facility] 99044770299 40 MG Orally Active 1 tablet Sodium Once a day Gabapentin [facility] 15530184217 300 MG Orally Active 1 capsule Once a day before bedtime Glimepiride [facility] 49383318176 1 MG Orally Active 1 tablet Once a day with breakfast or the first main meal of the day Results No Known Results Summary Purpose eClinicalWorks Submission
--- OUTSIDE RECORDS SUMMARY | 2018-12-30 00:38 | XMS REPORT | Clinical Summary ---
:1945 Author Organization [facility] Address [address] [place] [address] Care Team Providers Name Role Phone Stevie [...] Orders Only General Surgery Patria Strauss MA after 12/29/2017 Family History Medical History Relation Name Comments [...] 1997 COLON CANCER SCREENING 1997 SHINGLES VACCINES (#1) 1997 65+ PNEUMOCOCCAL VACCINE (1 of 2 - PCV13) 2012 PNEUMOCOCCAL POLYSACCHARIDE VACCINE AGE 65 AND OVER 2012 INFLUENZA VACCINE 04/17/2019 Implants Implanted Type Area Permastone Installer Device Shelf Model / Identifier Expiration Serial / Date Lot Clip Resolution 360 Mr Cndtl 235cm 2.8mm 11mm Opening - [id number] Surgical N /A: N/A [facility] ENDOSCOPY [id number] / Implanted: 01/21/2018 (Quantity not on file) Implants; / Expanders; Extenders; Surgical Wires Procedures Procedure Name Priority Date/Time Associated Comments Diagnosis SURGICAL PATHOLOGY Routine 01/21/2018 4:30 Results for this REQUEST PM CDT procedure are in the results section. COLONOSCOPY 01/21/2018 1:52 Colon polyp PM CDT POC GLUCOSE Routine 01/21/2018 11:54 Results for this AM CDT procedure are in the results section. after 12/29/2017 Results Surgical pathology request (01/21/2018 4:30 PM CDT) [facility] DEPARTMENT OF PATHOLOGY AND GENOMIC MEDICINE Surgical pathology report See link below for PDF [facility] DEPARTMENT OF Lab Report PATHOLOGY AND GENOMIC MEDICINE Result status This is Final Report to [facility] DEPARTMENT OF [id number] PATHOLOGY AND GENOMIC MEDICINE Performing Organization Address [facility]State[facility] Number [facility] DEPARTMENT OF PATHOLOGY AND [address] [place] [address] GENOMIC MEDICINE POC glucose (01/21/2018 11:54 AM CDT) POC glucose 105 (H) 65 - 99 mg/dL [facility] DEPARTMENT OF PATHOLOGY AND Comment: GENOMIC MEDICINE Meter ID: [id number] Preforms Laminator: Gabriella Schaeffer Performing Organization Address City/State/Zipcode Phone Number [facility] DEPARTMENT OF PATHOLOGY AND [address] [place] [address] GENOMIC MEDICINE after 12/29/2017 Insurance Payer Benefit Plan / Group Subscriber ID Type Phone Address MEDICARE MEDICARE PART A AND B xxxxxxxxxx Medicare [place], [place] [employer] AND xxxxxxxxx Commercial CASUALTY CASUALTY ([place]) [place] [address] Advance Directives Patient has advance care planning documents on file. For more information, please contact:Evgeny Mares[address] [place] [address]
--- OUTSIDE RECORDS SUMMARY | 2018-12-30 00:38 | XMS REPORT ---
[...] End Status Dosage System Date Date Lisinopril [facility] 89987159438 5 MG Orally Active 1 tablet Once a day Pravastatin ND 97464456024 40 MG Orally Active 1 tablet Sodium Once a day Glimepiride ND 28460434641 1 MG Orally Active 1 tablet Once a day with breakfast or the first main meal of the day Cinnamon ND 37430499575 500 MG Orally Active not defined Antihistamine NDC 0 Active not defined [facility] 41525950335 - Orally Active not defined Gabapentin ND 17944745230 300 MG Orally Active 1 capsule Once a day before bedtime Results Name Result Date Reference Range Unit Abnormality Flag Uric Acid ----Uric Acid 4.3 20180321 2.6-6.0 mg/dL PTH Intact ----PTH Intact 32 20180321 12-88 pg/mL Summary Purpose eClinicalWorks Submission
--- NOTE | 2018-12-30 01:07 | ER ---
Nurse's Notes [facility] Name: Laury Alfred Age: 73 yrs Sex: Female : 1945 Arrival Date: 12/30/2018 Time: 00:37 Bed 7 Private MD: Stevie Latham R Diagnosis: Urinary tract infection, site not specified Presentation: 12/30 00:52 Presenting complaint: Patient states: Pain with urination, urinary frequency, pelvic lp1 pain since this afternoon. Transition of care: patient was not received from another setting of care. Onset of symptoms was December 29, 2018. Risk Assessment: Do you want to hurt yourself or someone else? Patient reports no desire to harm self or others. Initial Sepsis Screen: Does the patient meet any 2 criteria? No. Patient's initial sepsis screen is negative. Does the patient have a suspected source of infection? No. Patient's initial sepsis screen is negative. Care prior to arrival: None. 00:52 Method Of Arrival: Ambulatory lp1 00:52 Acuity: SUKH 4 lp1 Historical: - Allergies: 00:59 No Known Allergies; lp1 - Home Meds: 00:59 Benadryl Oral [Active]; Cinnamon Oral [Active]; eye vitamins [Active]; gabapentin 300 lp1 mg Oral tab 1 cap twice a day [Active]; glimepiride 1 mg Oral tab 1 tab once daily [Active]; lisinopril 5 mg Oral tab 1 tab once daily [Active]; lisinopril 5 mg Oral tab 1 tab once daily [Active]; pravastatin 40 mg Oral tab 1 tab once daily [Active]; - PMHx: 00:59 Diabetes - NIDDM; High Cholesterol; Hypertension; neuropathy; Non-Hodgkins Lymphoma; lp1 Non-Hodgkins Lymphona; spinal stenosis; - PSHx: 00:59 Tubal ligation; small intestine; Hysterectomy; Hernia repair; lp1 - Immunization history:: Adult Immunizations up to date. - Social history:: Smoking status: Patient/guardian denies using tobacco. - Ebola Screening: : No symptoms or risks identified at this time. - Family history:: not pertinent. - Hospitalizations: : No recent hospitalization is reported. Screenin:59 Abuse screen: Denies threats or abuse. Denies injuries from another. Nutritional lp1 screening: No deficits noted. Tuberculosis screening: No symptoms or risk factors identified. Fall Risk None identified. Assessment: 00:59 General: Appears uncomfortable, Behavior is appropriate for age. Pain: Complains of lp1 pain in suprapubic area. Neuro: Level of Consciousness is awake, alert, obeys commands. Cardiovascular: Patient's skin is warm and dry. Respiratory: Respiratory effort is even, unlabored. GI: No signs and/or symptoms were reported involving the gastrointestinal system. : Reports burning with urination, pain with urination, urinary frequency. EENT: No deficits noted. Derm: Skin is pink, warm \T\ dry. Musculoskeletal: No deficits noted. Vital Signs: 00:54 BP 146 / 61; Pulse 66; Resp 18; Temp 98.4(O); Pulse Ox 99% on R/A; Weight 98.43 kg; lp1 Height 5 ft. 5 in. (165.10 cm); Pain 0/10; 00:54 Body Mass Index 36.11 (98.43 kg, 165.10 cm) lp1 ED Course: 00:37 Patient arrived in ED. do 00:38 Stevie Latham MD is Private Physician. do 00:42 Sheree Covarrubias, RN is Primary Nurse. lp1 00:45 Todd Harley MD is Attending Physician. rn 00:53 Triage completed. lp1 00:54 Arm band placed on left wrist. lp1 01:00 Patient has correct armband on for positive identification. lp1 01:25 No provider procedures requiring assistance completed. Patient did not have IV access lp1 during this emergency room visit. Administered Medications: 01:24 Drug: Pyridium 200 mg Route: PO; lp1 01:24 Follow up: Response: Medication administered at discharge. lp1 01:24 Drug: Macrobid 100 mg Route: PO; lp1 01:24 Follow up: Response: Medication administered at discharge. lp1 Outcome: 01:07 Discharge ordered by . rn 01:25 Discharged to home ambulatory. lp1 01:25 Condition: good 01:25 Discharge instructions given to patient, Instructed on discharge instructions, follow up and referral plans. medication usage, Demonstrated understanding of instructions, follow-up care, medications, Prescriptions given X 2. 01:25 Patient left the ED. lp1 Signatures: Todd Harley MD MD rn Pena, Laura, RN RN lp1 Kitty Fontaine do
--- NOTE | 2018-12-30 01:08 | EDPHYS ---
Physician Documentation [facility] Name: Laury Alfred Age: 73 yrs Sex: Female : 1945 Arrival Date: 12/30/2018 Time: 00:37 Bed 7 Private MD: Stevie Latham R ED Physician Todd Harley HPI: 12/30 01:05 This 73 yrs old Female presents to ER via Ambulatory with complaints of rn Urinary Frequency, Pain With Urination. 01:05 The patient presents with urinary symptoms, dysuria, frequency, urgency. Onset: The rn symptoms/episode began/occurred today. Modifying factors: The symptoms are alleviated by nothing, the symptoms are aggravated by urinating. Associated signs and symptoms: Pertinent positives: dysuria, Pertinent negatives: fever. Severity of symptoms: At their worst the symptoms were mild, in the emergency department the symptoms are unchanged. The patient has experienced similar episodes in the past. The patient has not recently seen a physician. Reports has had kidney stones in past but does not feel like kidney stone this time, feels identical to previous UTIs. NO fever/chills. . Historical: - Allergies: 00:59 No Known Allergies; lp1 - Home Meds: 00:59 Benadryl Oral [Active]; Cinnamon Oral [Active]; eye vitamins [Active]; gabapentin 300 lp1 mg Oral tab 1 cap twice a day [Active]; glimepiride 1 mg Oral tab 1 tab once daily [Active]; lisinopril 5 mg Oral tab 1 tab once daily [Active]; lisinopril 5 mg Oral tab 1 tab once daily [Active]; pravastatin 40 mg Oral tab 1 tab once daily [Active]; - PMHx: 00:59 Diabetes - NIDDM; High Cholesterol; Hypertension; neuropathy; Non-Hodgkins Lymphoma; lp1 Non-Hodgkins Lymphona; spinal stenosis; - PSHx: 00:59 Tubal ligation; small intestine; Hysterectomy; Hernia repair; lp1 - Immunization history:: Adult Immunizations up to date. - Social history:: Smoking status: Patient/guardian denies using tobacco. - Ebola Screening: : No symptoms or risks identified at this time. - Family history:: not pertinent. - Hospitalizations: : No recent hospitalization is reported. ROS: 01:05 Constitutional: Negative for fever, chills, and weight loss, Eyes: Negative for injury, rn pain, redness, and discharge, Cardiovascular: Negative for chest pain, palpitations, and edema, Respiratory: Negative for shortness of breath, cough, wheezing, and pleuritic chest pain, Abdomen/GI: Negative for abdominal pain, nausea, vomiting, diarrhea, and constipation, Back: Negative for injury and pain, : Negative for injury, bleeding, discharge, and swelling, MS/Extremity: Negative for injury and deformity, Skin: Negative for injury, rash, and discoloration, Neuro: Negative for headache, weakness, numbness, tingling, and seizure. Exam: 01:05 Constitutional: This is a well developed, well nourished patient who is awake, alert, rn and in no acute distress. Head/Face: Normocephalic, atraumatic. Abdomen/GI: soft, non-tender Skin: Warm, dry with normal turgor. Normal color with no rashes, no lesions, and no evidence of cellulitis. MS/ Extremity: Pulses equal, no cyanosis. Neurovascular intact. Full, normal range of motion. Equal circumference. Neuro: Awake and alert, GCS 15, oriented to person, place, time, and situation. Cranial nerves II-XII grossly intact. Motor strength 5/5 in all extremities. Sensory grossly intact. Cerebellar exam normal. Normal gait. Vital Signs: 00:54 BP 146 / 61; Pulse 66; Resp 18; Temp 98.4(O); Pulse Ox 99% on R/A; Weight 98.43 kg; lp1 Height 5 ft. 5 in. (165.10 cm); Pain 0/10; 00:54 Body Mass Index 36.11 (98.43 kg, 165.10 cm) lp1 MDM: 00:45 Patient medically screened. rn 01:05 Differential diagnosis: urinary tract infection. Data reviewed: vital signs, nurses rn notes, lab test result(s), and as a result, I will discharge patient. Counseling: I had a detailed discussion with the patient and/or guardian regarding: the historical points, exam findings, and any diagnostic results supporting the discharge/admit diagnosis, lab results, the need for outpatient follow up, to return to the emergency department if symptoms worsen or persist or if there are any questions or concerns that arise at home. Special discussion: I discussed with the patient/guardian in detail that at this point there is no indication for admission to the hospital. It is understood, however, that if the symptoms persist or worsen the patient needs to return immediately for re-evaluation. 12/30 00:49 Order name: Urine Microscopic Only rn 12/30 01:00 Order name: Urine Culture fc 12/30 00:49 Order name: Urine Dipstick-Ancillary (obtain specimen); Complete Time: 01:02 rn 12/30 01:13 Order name: Urine Dipstick--Ancillary (enter results) ar5 Administered Medications: 01:24 Drug: Pyridium 200 mg Route: PO; lp1 01:24 Follow up: Response: Medication administered at discharge. lp1 01:24 Drug: Macrobid 100 mg Route: PO; lp1 01:24 Follow up: Response: Medication administered at discharge. lp1 Disposition: 12/30/18 01:07 Discharged to Home. Impression: Urinary tract infection, site not specified. - Condition is Stable. - Discharge Instructions: Urinary Tract Infection, Adult. - Prescriptions for Pyridium 200 mg Oral Tablet - take 1 tablet by ORAL route every 8 hours for 3 days; 9 tablet. Macrobid 100 mg Oral Capsule - take 1 capsule by ORAL route every 12 hours for 10 days; 20 capsule. - Medication Reconciliation Form, Thank You Letter, Antibiotic Education, Prescription Opioid Use form. - Follow up: Private Physician; When: As needed; Reason: Recheck today's complaints, Re-evaluation by your physician. - Problem is new. - Symptoms have improved. Signatures: Dispatcher [employer] EDMS Todd Harley MD MD rn Pena, Laura, RN RN lp1 Corrections: (The following items were deleted from the chart) 01:25 01:07 12/30/2018 01:07 Discharged to Home. Impression: Urinary tract infection, site lp1 not specified. Condition is Stable. Forms are Medication Reconciliation Form, Thank You Letter, Antibiotic Education, Prescription Opioid Use. Follow up: Private Physician; When: As needed; Reason: Recheck today's complaints, Re-evaluation by your physician. Problem is new. Symptoms have improved. rn
[2018-12-30] MEDS ORDERED: PHENAZOPYRIDINE 100MG TAB PO ONE (01:28)
[2018-12-30] MEDS ORDERED: NITROFURAN MACRO 100 MG CAP PO ONE (01:29)
[2018-12-30 03:04] LABS: Urine Culture Reflex Order NOT NEEDED
[2018-12-30 03:05] LABS: Urine Bacteria <20 /HPF (<20)
[2018-12-30 03:06] LABS: Urine RBC NONE SEEN /HPF (NONE SEEN)
[2018-12-30 03:32] VITALS: BP 146/61; TEMP 98.4; O2SAT 99
[2018-12-30 05:20] LABS: Urine Blood 3+ (NEG); Urine Glucose NEGATIVE (NEG); Urine Protein TRACE (NEG); Urine Specific Gravity <1.005 (1.005-1.030)
== END 2018-12-30 01:25 | disposition home or self-care (01) ==
LOC: ER 00:36
DX: N39.0 Urinary tract infection, site not specified (principal); E11.9 Type 2 diabetes mellitus without complications; I10 Essential (primary) hypertension; E78.00 Pure hypercholesterolemia, unspecified; C85.90 Non-Hodgkin lymphoma, unspecified, unspecified site
CPT/HCPCS: 81003; 81015; 87086; 87088; 99283

== ENCOUNTER 2021-02-04 18:18 | Emergency (ER) | payer OTHER ==
--- OUTSIDE RECORDS SUMMARY | 2021-02-04 18:20 | XMS REPORT | Continuity of Care Document ---
:1945 Author Organization [facility] t Address [address] [place] [address] Care Team Providers Name Role Phone Sirena LAMB Primary Care Physician Problems Condition Condition Condition Status Onset Resolution Last Treating Co mments Source Name Details Category Date Date Treatment Clinician Date Adenomatou Adenomatou Disease Active [place] [facility] polyp of s polyp of 5-07 Me thodi descending descending 00:00: st colon colon 00 Bladder Bladder Problem Active [facility] Kidney Kidney Diagnosis Active [facility] Renal cyst Renal cyst Diagnosis [facility] Allergies, Adverse Reactions, Alerts This patient has no known allergies or adverse reactions. Family History Family Member Diagnosis Comments Start Date Stop Date Source Natural father Cancer [facility] Natural father Hypertension [facility] Natural father Stroke [facility] Natural mother Cancer [facility] Natural mother Hypertension [facility] Natural sister Cancer [facility] Natural sister Diabetes [facility] Social History Social Habit Start Date Stop Date Quantity Comments Source Tobacco use and 2018-01-22 2018-01-22 Never used [facility] exposure 00:00:00 00:00:00 Alcohol intake 2018-01-22 2018-01-22 Current [facility] 00:00:00 00:00:00 non-drinker of alcohol (finding) Sex Ass[birth year] [facility]ist 00:00:00 00:00:00 Smoking Status Start Date Stop Date Source Never smoker [facility] Medications Ordered Filled Start Stop Current Ordering Indication Dosage Frequency Signature Comments Components Source Medication Medication Date Date Medication? Clinician (SIG) Name Name glimepiride 2018 Yes 1mg QD Take 1 mg [place] (AMARYL) 1 5-07 by mouth Metho di MG tablet 17:06: daily st 55 before breakfast. gabapentin 2018 Yes 300mg [id number] Take 300 [place] (NEURONTIN) 5-07 [id number] mg by M ethodi 300 mg 17:06: 3D mouth 3 st capsule 55 (three) times a day. lisinopril 2018 Yes 5mg QD Take 5 mg [place] (PRINIVIL,Z 5-07 by mouth Meth pablo ESTRIL) 5 17:06: daily. st mg tablet 55 pravastatin Yes 40mg QD Take 40 mg [place] (PRAVACHOL) 5-07 by mouth Meth pablo 40 MG 17:06: daily. st tablet 55 traMADol Yes 50mg Q6H Take 50 mg Elan ston (ULTRAM) 50 5-07 by mouth Meth pablo mg tablet 17:06: every 6 st 55 (six) hours as needed for moderate pain. cinnamon Yes 500mg QD Take 500 [place] bark 5-07 mg by Methodi (CINNAMON) 17:06: mouth st 500 mg 55 daily. capsule diphenhydrA Yes 25mg QD Take 25 mg [place] MINE 5-07 by mouth Methodi (BENADRYL) 17:06: nightly as s t 25 mg 55 needed for tablet sleep. sodium,pota Yes Take as Elan ston ssium,mag 4-27 directed Method i sulfates 00:00: by st (SUPREP 00 Physician. BOWEL PREP KIT) 17.5-3.13-1 .6 gram recon soln Pravastatin Pravastatin Yes Lorenza [address] [facility] [address] Sodium Sodium [facility] Glimepiride Glimepiride Yes Lorenza [address] [facility] with [facility] breakfast [facility] or the l first main Outpati meal of ent the day Clinics Cinnamon Cinnamon Yes Lorenza not [facility] defined [facility] Antihistami Antihistami Yes Lorenza not [facility] [place] defined [facility] Yes Lorenza not [facility] defined [facility] Lisinopril Lisinopril Yes Lorenza [address] [facility] Gabapentin Gabapentin Yes Lorenza [address] [facility] [place] before [facility] Procedures This patient has no known procedures. Plan of Care Planned Activity Planned Date Details Comments Source Future Scheduled 2021-04-17 INFLUENZA VACCINE [facility] 00:00:00 [code = INFLUENZA VACCINE] Future Scheduled 2012 65+ PNEUMOCOCCAL [facility] 00:00:00 VACCINE (1 of 1 - PPSV23) [code = 65+ PNEUMOCOCCAL VACCINE (1 of 1 - PPSV23)] Future Scheduled 1997 BREAST CANCER [facility] Test 00:00:00 SCREENING [code = BREAST CANCER SCREENING] Future Scheduled 1997 COLONOSCOPY SCREENING [place] [facility] 00:00:00 [code = COLONOSCOPY SCREENING] Future Scheduled 1997 SHINGLES VACCINES (#1) [place] [facility] 00:00:00 [code = SHINGLES VACCINES (#1)] Future Scheduled 1965 Hepatitis C screening [place] [facility] 00:00:00 (procedure) [code = 933406280] Future Scheduled 1959 COVID-19 VACCINE (1) Elan francine [facility] Test 00:00:00 [code = COVID-19 VACCINE (1)] Encounters Start End Encounter Admission Attending Care Care Encounter Source Date/Time Date/Time Type Type Clinicians Facility Department ID 2020-06-02 2020-06-02 Outpatient Griselda Toscano [id number] [address] [facility]00 [facility] Outpat[facility] ent Clinics 2019-12-01 2019-12-01 Outpatient Griselda Toscano [id number] 09[facility] 09[facility]00 [facility] [place] [facility] l Clinic Outpati ent Clinics 2019-05-26 2019-05-26 Outpatient Griselda Toscano [id number] 09:[facility] 09[facility]00 [facility] [place] [facility] l Clinic Outpati ent Clinics 2019-05-13 2019-05-13 [place] [place] [id number] 10:[facility] 10[facility]00 [facility] [place] [facility] l Clinic Outpati ent Clinics 2019-02-27 2019-02-27 [place] [place] [id number] 09:30[facility] 09:30:00 [facility] [place] [facility] l Clinic Outpati ent Clinics 2018-10-31 2018-10-31 [place] [place] [id number] 09:30[facility] 09:30:00 t [facility] [place] [facility] l Clinic Outpati ent Clinics 2018-05-01 2018-05-01 [place] [place] [id number] 10:[facility] 10[facility]00:00 t [facility] [place] [facility] l Clinic Outpati ent Clinics 2018-03-21 2018-03-21 [place] [place] [id number] 10:[facility] 10:00[facility]00 t [facility] [place] [facility] [facility]rology [facility] l Clinic Outpati ent Clinics Results This patient has no known results.
--- NOTE | 2021-02-04 18:52 | RAD REPORT ---
EXAM DESCRIPTION: CT - Ct Stroke Brain Wo Cont - 02/04/2021 6:41 pm CLINICAL HISTORY: CONFUSED COMPARISON: CT-STROKE BRAIN W/O CONTRAST dated 11/21/2014; Brain W/Wo Cont dated 10/25/2018 TECHNIQUE: Axial 5 millimeter thick images of the head were obtained without IV contrast. All CT scans are performed using dose optimization technique as appropriate and may include automated exposure control or mA/KV adjustment according to patient size. FINDINGS: No intracranial hemorrhage, mass, or cerebral edema. No acute infarction identifiable. Atr ophy is minimal for age. Ventricles are in proportion. No cortical edema or sulcal effacement seen. S cattered chronic ischemic changes are present not substantially different comparison. Rahman matter-whi te matter differentiation is preserved. Visualized portions of the mastoid air cells, paranasal sinuses, and orbits are unremarkable. Findings telephoned to Ashish Garcia 6:47 p.m.. IMPRESSION: No intracranial hemorrhage. No acute cortical based infarction identified. Atrophy is minimal. Chronic ischemic changes are mild. No clear change from 2019 MRI study. Continue d concerns for ischemia can be addressed with MR imaging.
[2021-02-04 18:58] LABS: Basophils % 0.7 % (0-1.3); Hematocrit 39.7 % (36.0-45.0); Lymphocytes % 27.5 % (15.3-44.8); MPV 7.8 fL (7.6-11.3); RBC Red Blood Cell Count 4.54 M/uL (3.86-4.86)
[2021-02-04] MEDS ORDERED: NA CHLORIDE 0.9% 0 ML ONE (18:59)
[2021-02-04] MEDS ORDERED: ALTEPLASE 0 ML IV ONE (19:00)
[2021-02-04 19:08] LABS: Protime INR 0.97
[2021-02-04 19:12] LABS: Potassium 3.9 mmol/L (3.5-5.1)
--- NOTE | 2021-02-04 19:39 | RAD REPORT ---
EXAM DESCRIPTION: CT - Head angio - 02/04/2021 7:31 pm CLINICAL HISTORY: paresthesia;Weakness TECHNIQUE: During dynamic enhancement using nonionic IV contrast, axial 1 millimeter thick images of the head were obtained. Sagittal and axial reconstruction images were generated using MIP technique and reviewed. All CT scans are performed using dose optimization technique as appropriate and may include automated exposure control or mA/KV adjustment according to patient size. COMPARISON: CT head same date FINDINGS: No aneurysm or vascular malformation identified. Major venous sinuses are patent. No stenosis, named branch occlusion, vasculitis or other significant vascular finding identifiable. Mild narrowing of the distal right vertebral artery is seen as a normal variant. IMPRESSION: Negative CT angio head examination.
--- NOTE | 2021-02-04 19:47 | RAD REPORT ---
EXAM DESCRIPTION: CT - Neck Angio - 02/04/2021 7:31 pm CLINICAL HISTORY: Possible CVA TECHNIQUE: During dynamic enhancement using nonionic IV contrast, axial 2 mm thick images of the nec k were obtained. Sagittal and axial reconstruction images were generated using MIP technique and revi ewed. All CT scans are performed using dose optimization technique as appropriate and may include automated exposure control or mA/KV adjustment according to patient size. COMPARISON: CT head same date, CTA head same date FINDINGS: No aneurysm or vascular malformation identified. No carotid or vertebral dissection. No aortic arch or great vessel origin abnormality seen. Vertebral artery origins unremarkable as well . No vasculitis seen. No dissection of the carotid vasculature. There is mild narrowing of the proxim al portion right internal carotid artery. This is not a significant luminal narrowing. No focal abnor mality of either vertebral artery. Basilar artery is normal. IMPRESSION: Minimal narrowing of the right internal carotid artery origin. This is not significant degree of stenosis. Exam is otherwise without significant finding.
[2021-02-04] MEDS ORDERED: FOLIC ACID 1 MG TABLET ONE (20:06)
[2021-02-04] MEDS ORDERED: ASPIRIN EC 81 MG TAB PO ONE (20:07)
--- NOTE | 2021-02-04 20:52 | ER ---
Nurse's Notes [facility] Name: Laury Alfred Age: 75 yrs Sex: Female : 1945 Arrival Date: 02/04/2021 Time: 18:18 Bed 3 Private MD: Stevie Latham R Diagnosis: Transient cerebral ischemic attack, unspecified Presentation: 02/04 18:30 Chief complaint: Patient states: left facial numbness and tongue numbness then went to em left hand that went numb that started at 1715 today, hx of CVA, reports symptoms mostly resolved, denies weakness or slurred speech noted. Coronavirus screen: Client denies travel out of the [place] in the last 14 days. Ebola Screen: Patient negative for fever greater than or equal to 101.5 degrees Fahrenheit, and additional compatible Ebola Virus Disease symptoms Patient denies exposure to infectious person. Patient denies travel to an Ebola-affected area in the 21 days before illness onset. No symptoms or risks identified at this time. Initial Sepsis Screen: Does the patient meet any 2 criteria? No. Patient's initial sepsis screen is negative. Does the patient have a suspected source of infection? No. Patient's initial sepsis screen is negative. Risk Assessment: Do you want to hurt yourself or someone else? Patient reports no desire to harm self or others. Onset of symptoms was February 04, 2021. 18:30 Method Of Arrival: Ambulatory em 18:30 Acuity: SUKH 2 em Historical: - Allergies: 18:34 No Known Allergies; em - PMHx: 18:34 Diabetes - NIDDM; spinal stenosis; Non-Hodgkins Lymphoma; neuropathy; High Cholesterol; em Hypertension; - PSHx: 18:34 Hysterectomy; em - Immunization history:: Adult Immunizations up to date. - Social history:: Smoking status: Patient denies any tobacco usage or history of. Screenin:44 Abuse screen: Denies threats or abuse. Denies injuries from another. Nutritional sv screening: No deficits noted. Tuberculosis screening: No symptoms or risk factors identified. Fall Risk None identified. Assessment: 18:44 Reassessment: Dr Alarcon at the bedside. sv 18:45 General: Appears in no apparent distress. comfortable, well groomed, well developed, sv Behavior is calm, cooperative, appropriate for age. Pain: Denies pain. Neuro: Level of Consciousness is awake, alert, obeys commands, Oriented to person, place, time, situation, Mark[employer] Developer are equal bilaterally Moves all extremities. Full function Gait is steady, Speech is normal, Facial symmetry appears normal. Cardiovascular: Patient's skin is warm and dry. Rhythm is sinus bradycardia. Respiratory: Airway is patent Respiratory effort is even, unlabored, Respiratory pattern is regular, symmetrical. Derm: Skin is pink, warm \T\ dry. 18:55 General: Appears in no apparent distress. comfortable, Behavior is calm, cooperative, kg appropriate for age, quiet. Pain: Denies pain. Neuro: No deficits noted. Level of Consciousness is awake, alert, obeys commands, Oriented to person, place, time, situation, Appropriate for age Marklogic Developer are equal bilaterally Moves all extremities. Full function Gait is steady, Speech is normal, Facial symmetry appears normal. Cardiovascular: Capillary refill < 3 seconds Patient's skin is warm and dry. Rhythm is regular. Respiratory: No deficits noted. Airway is patent Respiratory effort is even, unlabored, Respiratory pattern is regular, symmetrical, Breath sounds are clear bilaterally. GI: No deficits noted. : No deficits noted. EENT: No deficits noted. Derm: No deficits noted. Skin is intact, Skin is pink, warm \T\ dry. Musculoskeletal: No deficits noted. 21:14 Reassessment: Patient went AMA, Dr. Matute spoke to patient and patient still choose to kg go AMA. Pt walked out with daughter, pt is A\T\O x 4 with steady gait. . Vital Signs: 18:30 BP 166 / 67; Pulse 81; Resp 18; Temp 97.4; Pulse Ox 99% on R/A; Weight 98.43 kg; Height em 5 ft. 4 in. (162.56 cm); Pain 0/10; 18:42 Weight 98.84 kg (M); ld1 19:30 BP 150 / 71; Pulse 55; Resp 20; Pulse Ox 100% on R/A; kg 20:30 BP 151 / 48; Pulse 59; Resp 20; Pulse Ox 100% on R/A; kg 18:42 Body Mass Index 37.40 (98.84 kg, 162.56 cm) ld1 NIH Stroke Scale Scores: 18:45 NIHSS Score: 0 sv 18:54 NIHSS Score: 0 kg 19:14 NIHSS Score: 0 kdr ED Course: 18:18 Patient arrived in ED. mr 18:19 Stevie Latham MD is Private Physician. mr 18:34 Triage completed. em 18:34 Arm band placed on. em 18:36 Jace Alarcon MD is Attending Physician. kdr 18:40 CT Stroke Brain w/o Contrast In Process Unspecified. EDMS 18:44 Patient has correct armband on for positive identification. Placed in gown. Bed in low sv position. Call light in reach. Adult w/ patient. residential monitor on. Pulse ox on. NIBP on. Door closed. Head of bed elevated. 18:44 EKG done, by ED staff, reviewed by Jace Alarcon MD. sv 18:46 Inserted saline lock: 18 gauge in right antecubital area, using aseptic technique. sv Blood collected. Flushed right antecubital with 5 ml normal saline. 18:53 Marya Schneider is Primary Nurse. kg 19:06 Stroke CXR 1 View In Process Unspecified. EDMS 19:30 CT Head Angio In Process Unspecified. EDMS 19:31 CT Neck Angio In Process Unspecified. EDMS 19:45 Attending Physician role handed off by Jace Alarcon MD 7 19:45 Raheem Mattue MD is Attending Physician. 7 20:51 Stevie Latham MD is Referral Physician. 7 20:51 Zelalem Martin MD is Referral Physician. mh7 Administered Medications: 19:51 Drug: Aspirin Chewable Tablet 324 mg Route: PO; kg 21:16 Follow up: Response: No adverse reaction; Marked relief of symptoms kg 19:51 Drug: Folate 1 mg Route: PO; kg 21:15 Follow up: Response: No adverse reaction; Marked relief of symptoms kg 20:42 Not Given (Not avaliable): lovastatin 40 mg PO once kg Outcome: 21:16 Patient left the ED. kg NIH Stroke Scale - NIH Stroke Score Date: 02/04/2021 Time: 18:45 Total Score = 0 1a. Level of Consciousness (LOC) - 0(Alert) 1b. Level of Consciousness (LOC) (Year \T\ Age) - 0(Both) 1c. LOC Commands (Open \T\ Closes Eyes/Ornamental Metal Fabricator Apprentice) - 0(Both) 2. Best Gaze (Lateral Gaze Paresis) - 0(Normal) 3. Visual Field Loss - 0(No visual loss) 4. Facial Palsy - 0(Normal) 5a. Left Arm: Motor (10-second hold) - 0(No drift) 5b. Right Arm: Motor (10-second hold) - 0(No drift) 6a. Left Leg: Motor (5-second hold - always test supine) - 0(No drift) 6b. Right Leg: Motor (5-second hold - always test supine) - 0(No drift) 7. Limb Ataxia (finger/nose \T\ heel/tristan - test with eyes open) - 0(Absent) 8. Sensory Loss (pinprick arms/legs/face) - 0(Normal) 9. Best Language: Aphasia (description/naming/reading) - 0(No aphasia) 10. Dysarthria (speech clarity - read or repeat words) - 0(Normal) 11. Extinction and Inattention (visual/tactile/auditory/spatial/personal) - 0(No abnormality) Initials: NIH Stroke Scale - NIH Stroke Score Date: 02/04/2021 Time: 18:54 Total Score = 0 1a. Level of Consciousness (LOC) - 0(Alert) 1b. Level of Consciousness (LOC) (Year \T\ Age) - 0(Both) 1c. LOC Commands (Open \T\ Closes Eyes/Ornamental Metal Fabricator Apprentice) - 0(Both) 2. Best Gaze (Lateral Gaze Paresis) - 0(Normal) 3. Visual Field Loss - 0(No visual loss) 4. Facial Palsy - 0(Normal) 5a. Left Arm: Motor (10-second hold) - 0(No drift) 5b. Right Arm: Motor (10-second hold) - 0(No drift) 6a. Left Leg: Motor (5-second hold - always test supine) - 0(No drift) 6b. Right Leg: Motor (5-second hold - always test supine) - 0(No drift) 7. Limb Ataxia (finger/nose \T\ heel/tristan - test with eyes open) - 0(Absent) 8. Sensory Loss (pinprick arms/legs/face) - 0(Normal) 9. Best Language: Aphasia (description/naming/reading) - 0(No aphasia) 10. Dysarthria (speech clarity - read or repeat words) - 0(Normal) 11. Extinction and Inattention (visual/tactile/auditory/spatial/personal) - 0(No abnormality) Initials: kg NIH Stroke Scale - NIH Stroke Score Date: 02/04/2021 Time: 19:14 Total Score = 0 1a. Level of Consciousness (LOC) - 0(Alert) 1b. Level of Consciousness (LOC) (Year \T\ Age) - 0(Both) 1c. LOC Commands (Open \T\ Closes Eyes/Ornamental Metal Fabricator Apprentice) - 0(Both) 2. Best Gaze (Lateral Gaze Paresis) - 0(Normal) 3. Visual Field Loss - 0(No visual loss) 4. Facial Palsy - 0(Normal) 5a. Left Arm: Motor (10-second hold) - 0(No drift) 5b. Right Arm: Motor (10-second hold) - 0(No drift) 6a. Left Leg: Motor (5-second hold - always test supine) - 0(No drift) 6b. Right Leg: Motor (5-second hold - always test supine) - 0(No drift) 7. Limb Ataxia (finger/nose \T\ heel/tristan - test with eyes open) - 0(Absent) 8. Sensory Loss (pinprick arms/legs/face) - 0(Normal) 9. Best Language: Aphasia (description/naming/reading) - 0(No aphasia) 10. Dysarthria (speech clarity - read or repeat words) - 0(Normal) 11. Extinction and Inattention (visual/tactile/auditory/spatial/personal) - 0(No abnormality) Initials: [facility] Signatures: Dispatcher [employer] Mariaelena Chapa, Jace Michael RN, MD MD kdr Rivera, Mary mr Munoz, Edgar, RN RN em Holmes, Maurice, MD MD [facility] Lilly Plata RN RN Marya Bull kg
--- NOTE | 2021-02-04 20:52 | EDPHYS ---
Physician Documentation [facility] Name: Laury Alfred Age: 75 yrs Sex: Female : 1945 Arrival Date: 02/04/2021 Time: 18:18 Bed 3 Private MD: Stevie Latham R ED Physician Raheem Matute HPI: 02/04 18:59 This 75 yrs old Female presents to ER via Ambulatory with complaints of kdr Numbness Of Face, Numbness Of Arm. 18:59 The patient's problem is reported as paresthesias, in left upper extremity, in left kdr side of face, Tongue, weakness, in the left upper extremity, in the left side of face. Onset: The symptoms/episode began/occurred suddenly, just prior to arrival, at 17:00. Duration: The episodes are intermittent, Resolved now on initial exam. Context: the episode(s) was witnessed, by family, occurred at home, occurred while the patient was at rest, The patient was at a restaurant ordering food. The symptoms are alleviated by nothing. The symptoms are aggravated by nothing. Associated signs and symptoms: The patient has no apparent associated signs or symptoms. Severity of symptoms: At their worst the symptoms were mild in the emergency department the symptoms are unchanged. Patient's baseline: Neuro: alert and fully oriented, Motor: no deficits, Ambulation: walks without assistance. The patient has experienced a previous episode, last week, The patient had similar thought not the same s/s last week that resovled. Historical: - Allergies: 18:34 No Known Allergies; em - PMHx: 18:34 Diabetes - NIDDM; spinal stenosis; Non-Hodgkins Lymphoma; neuropathy; High Cholesterol; em Hypertension; - PSHx: 18:34 Hysterectomy; em - Immunization history:: Adult Immunizations up to date. - Social history:: Smoking status: Patient denies any tobacco usage or history of. ROS: 19:14 Constitutional: Negative for fever, chills, and weight loss, Eyes: Negative for injury, kdr pain, redness, and discharge, ENT: Negative for injury, pain, and discharge, Neck: Negative for injury, pain, and swelling, Cardiovascular: Negative for chest pain, palpitations, and edema, Respiratory: Negative for shortness of breath, cough, wheezing, and pleuritic chest pain, Abdomen/GI: Negative for abdominal pain, nausea, vomiting, diarrhea, and constipation, Back: Negative for injury and pain, : Negative for injury, bleeding, discharge, and swelling, MS/Extremity: Negative for injury and deformity, Skin: Negative for injury, rash, and discoloration, Psych: Negative for depression, anxiety, suicide ideation, homicidal ideation, and hallucinations, Allergy/Immunology: Negative for hives, rash, and allergies, Endocrine: Negative for neck swelling, polydipsia, polyuria, polyphagia, and marked weight changes, Hematologic/Lymphatic: Negative for swollen nodes, abnormal bleeding, and unusual bruising. 19:14 Neuro: Positive for numbness, weakness, of the left arm. Exam: 19:14 Radiologist reports: Negative head kdr 19:14 Constitutional: This is a well developed, well nourished patient who is awake, alert, and in no acute distress. Head/Face: Normocephalic, atraumatic. Eyes: Pupils equal round and reactive to light, extra-ocular motions intact. Lids and lashes normal. Conjunctiva and sclera are non-icteric and not injected. Cornea within normal limits. Periorbital areas with no swelling, redness, or edema. Neck: Trachea midline, no thyromegaly or masses palpated, and no cervical lymphadenopathy. Supple, full range of motion without nuchal rigidity, or vertebral point tenderness. No Meningismus. Chest/axilla: Normal chest wall appearance and motion. Nontender with no deformity. No lesions are appreciated. Cardiovascular: Regular rate and rhythm with a normal S1 and S2. No gallops, murmurs, or rubs. Normal PMI, no JVD. No pulse deficits. Respiratory: Lungs have equal breath sounds bilaterally, clear to auscultation and percussion. No rales, rhonchi or wheezes noted. No increased work of breathing, no retractions or nasal flaring. Abdomen/GI: Soft, non-tender, with normal bowel sounds. No distension or tympany. No guarding or rebound. No evidence of tenderness throughout. Back: No spinal tenderness. No costovertebral tenderness. Full range of motion. Skin: Warm, dry with normal turgor. Normal color with no rashes, no lesions, and no evidence of cellulitis. MS/ Extremity: Pulses equal, no cyanosis. Neurovascular intact. Full, normal range of motion. Neuro: Awake and alert, GCS 15, oriented to person, place, time, and situation. Cranial nerves II-XII grossly intact. Motor strength 5/5 in all extremities. Sensory grossly intact. Cerebellar exam normal. Normal gait. Psych: Awake, alert, with orientation to person, place and time. Behavior, mood, and affect are within normal limits. 19:23 ECG was reviewed by the Attending Physician. kdr Vital Signs: 18:30 BP 166 / 67; Pulse 81; Resp 18; Temp 97.4; Pulse Ox 99% on R/A; Weight 98.43 kg; Height em 5 ft. 4 in. (162.56 cm); Pain 0/10; 18:42 Weight 98.84 kg (M); ld1 19:30 BP 150 / 71; Pulse 55; Resp 20; Pulse Ox 100% on R/A; kg 20:30 BP 151 / 48; Pulse 59; Resp 20; Pulse Ox 100% on R/A; kg 18:42 Body Mass Index 37.40 (98.84 kg, 162.56 cm) ld1 NIH Stroke Scale Scores: 18:45 NIHSS Score: 0 sv 18:54 NIHSS Score: 0 kg 19:14 NIHSS Score: 0 kdr MDM: 19:14 Data reviewed: vital signs, nurses notes, lab test result(s), EKG, radiologic studies. kdr Counseling: I had a detailed discussion with the patient and/or guardian regarding: the historical points, exam findings, and any diagnostic results supporting the discharge/admit diagnosis, lab results, radiology results. ED course: D/w Dr. Martin. The patient had a stroke scale of "0" at the time of my initial eval. Per Dr. Rudd, no tPA at this time. Usually treatment plan with CT Katya Head/Neck and MRI as soon as possible. 20:50 Differential diagnosis: CVA, TIA, paralysis, metabolic disorder, drug effects. Data 7 interpreted: Pulse oximetry: on room air is 99 %. Interpretation: normal. Counseling: I had a detailed discussion with the patient and/or guardian regarding: the need for further work-up and treatment in the hospital. Response to treatment: the patient's symptoms have resolved after treatment, the patient's blood pressure is in an acceptable range, mental status has returned to baseline, the patient no longer shows bradycardia, the patient is not short of breath, the patient is not tachycardic, the patient's pain is gone, the patient's temperature has normalized, the patient is now symptom free. Refusal of service: The patient/guardian displays adequate decision making capability and despite a detailed discussion of alternatives, benefits, risks, and consequences refuses: Admission to the hospital for further work-up and treatment. 20:52 Patient medically screened. 7 20:52 ED course: Awake, alert, and oriented x 3, NAD, VSS, normal mental status, no focal mh7 neurological deficits. Discussed all test results with the patient and need for admission for further evaluation. She wants to leave against medical advice. Explained possibility of permanent disability and/or if worsening of condition or presence of a serious medical problem that goes undetected or untreated. She verbalized that she understood this information as presented. She knows that she can return to the ED with any concerns.. 02/04 18:37 Order name: Basic Metabolic Panel; Complete Time: 19:13 [facility] 02/04 18:37 Order name: CBC with Diff; Complete Time: 19:13 [facility] 02/04 18:37 Order name: Protime (+inr); Complete Time: 19:13 [facility] 02/04 18:37 Order name: Ptt, Activated; Complete Time: 19:13 [facility] 02/04 18:37 Order name: CT Stroke Brain w/o Contrast; Complete Time: 19:13 [facility] 02/04 18:59 Order name: Glucose, Ancillary Testing; Complete Time: 19:13 [facility] 02/04 18:37 Order name: Stroke CXR 1 View [facility] 02/04 18:37 Order name: EKG; Complete Time: 18:38 [facility] 02/04 18:37 Order name: Accucheck; Complete Time: 18:56 [facility] 02/04 19:07 Order name: CT Head Angio; Complete Time: 20:31 [facility] 02/04 19:07 Order name: CT Neck Angio; Complete Time: 20:31 [facility] 02/04 18:37 Order name: Cardiac monitoring; Complete Time: 18:56 [facility] 02/04 18:37 Order name: EKG - Nurse/Tech; Complete Time: 18:56 [facility] 02/04 18:37 Order name: IV Saline Lock; Complete Time: 18:56 [facility] 05/21 18:37 Order name: Labs collected and sent; Complete Time: 18:56 kdr 02/04 18:37 Order name: NPO; Complete Time: 18:56 kdr 02/04 18:37 Order name: O2 Per Protocol; Complete Time: 18:56 kdr 02/04 18:37 Order name: O2 Sat Monitoring; Complete Time: 18:56 kdr 02/04 18:37 Order name: Stroke Swallow Screen kdr EC:23 Rate is 61 beats/min. Rhythm is regular, Normal Sinus Rhythm with No ectopy. QRS [place] kdr is Normal. [place] interval is normal. QRS interval is normal. QT interval is normal. Clinical impression: Normal ECG. Administered Medications: 19:51 Drug: Aspirin Chewable Tablet 324 mg Route: PO; kg 21:16 Follow up: Response: No adverse reaction; Marked relief of symptoms kg 19:51 Drug: Folate 1 mg Route: PO; kg 21:15 Follow up: Response: No adverse reaction; Marked relief of symptoms kg 20:42 Not Given (Not avaliable): lovastatin 40 mg PO once kg Disposition: 02/04/21 20:52 Patient has left against medical advice. Impression: Transient cerebral ischemic attack, unspecified. - Patients states they are going to Home. - Condition is Stable. - Discharge Instructions: Transient Ischemic Attack, [id number]. Follow up: Stevie Latham MD; When: 1 - 2 days; Reason: Worsening of condition, Recheck today's complaints, Continuance of care, Re-evaluation by your physician. Follow up: Zelalem Martin MD; When: 1 - 2 days; Reason: Worsening of condition, Recheck today's complaints. - Problem is new. - Symptoms have improved. NIH Stroke Scale - NIH Stroke Score Date: 02/04/2021 Time: 18:45 Total Score = 0 1a. Level of Consciousness (LOC) - 0(Alert) 1b. Level of Consciousness (LOC) (Year \\T\\ Age) - 0(Both) 1c. LOC Commands (Open \\T\\ Closes Eyes/Riveter Pneumatic) - 0(Both) 2. Best Gaze (Lateral Gaze Paresis) - 0(Normal) 3. Visual Field Loss - 0(No visual loss) 4. Facial Palsy - 0(Normal) 5a. Left Arm: Motor (10-second hold) - 0(No drift) 5b. Right Arm: Motor (10-second hold) - 0(No drift) 6a. Left Leg: Motor (5-second hold - always test supine) - 0(No drift) 6b. Right Leg: Motor (5-second hold - always test supine) - 0(No drift) 7. Limb Ataxia (finger/nose \\T\\ heel/tristan - test with eyes open) - 0(Absent) 8. Sensory Loss (pinprick arms/legs/face) - 0(Normal) 9. Best Language: Aphasia (description/naming/reading) - 0(No aphasia) 10. Dysarthria (speech clarity - read or repeat words) - 0(Normal) 11. Extinction and Inattention (visual/tactile/auditory/spatial/personal) - 0(No abnormality) Initials: sv NIH Stroke Scale - NIH Stroke Score Date: 02/04/2021 Time: 18:54 Total Score = 0 1a. Level of Consciousness (LOC) - 0(Alert) 1b. Level of Consciousness (LOC) (Year \\T\\ Age) - 0(Both) 1c. LOC Commands (Open \\T\\ Closes Eyes/Riveter Pneumatic) - 0(Both) 2. Best Gaze (Lateral Gaze Paresis) - 0(Normal) 3. Visual Field Loss - 0(No visual loss) 4. Facial Palsy - 0(Normal) 5a. Left Arm: Motor (10-second hold) - 0(No drift) 5b. Right Arm: Motor (10-second hold) - 0(No drift) 6a. Left Leg: Motor (5-second hold - always test supine) - 0(No drift) 6b. Right Leg: Motor (5-second hold - always test supine) - 0(No drift) 7. Limb Ataxia (finger/nose \\T\\ heel/tristan - test with eyes open) - 0(Absent) 8. Sensory Loss (pinprick arms/legs/face) - 0(Normal) 9. Best Language: Aphasia (description/naming/reading) - 0(No aphasia) 10. Dysarthria (speech clarity - read or repeat words) - 0(Normal) 11. Extinction and Inattention (visual/tactile/auditory/spatial/personal) - 0(No abnormality) Initials: kg NIH Stroke Scale - NIH Stroke Score Date: 02/04/2021 Time: 19:14 Total Score = 0 1a. Level of Consciousness (LOC) - 0(Alert) 1b. Level of Consciousness (LOC) (Year \\T\\ Age) - 0(Both) 1c. LOC Commands (Open \\T\\ Closes Eyes/Riveter Pneumatic) - 0(Both) 2. Best Gaze (Lateral Gaze Paresis) - 0(Normal) 3. Visual Field Loss - 0(No visual loss) 4. Facial Palsy - 0(Normal) 5a. Left Arm: Motor (10-second hold) - 0(No drift) 5b. Right Arm: Motor (10-second hold) - 0(No drift) 6a. Left Leg: Motor (5-second hold - always test supine) - 0(No drift) 6b. Right Leg: Motor (5-second hold - always test supine) - 0(No drift) 7. Limb Ataxia (finger/nose \\T\\ heel/tristan - test with eyes open) - 0(Absent) 8. Sensory Loss (pinprick arms/legs/face) - 0(Normal) 9. Best Language: Aphasia (description/naming/reading) - 0(No aphasia) 10. Dysarthria (speech clarity - read or repeat words) - 0(Normal) 11. Extinction and Inattention (visual/tactile/auditory/spatial/personal) - 0(No abnormality) Initials: kdr Signatures: Dispatcher [employer] EDJace Miranda MD MD [facility] Ervin Conrad RN RN Raheem Atsorga MD MD 7 Marya Schneider kg Corrections: (The following items were deleted from the chart) 21:16 20:52 02/04/2021 20:52 Patients has left against medical advice. Impression: kg Transient cerebral ischemic attack, unspecified. Patient states they are going to Home. Condition is Stable. Follow up: Stevie Latham; When: 1 - 2 days; Reason: Worsening of condition, Recheck today's complaints, Continuance of care, Re-evaluation by your physician. Follow up: Zelalem Martin; When: 1 - 2 days; Reason: Worsening of condition, Recheck today's complaints. Problem is new. Symptoms have improved. 7
--- NOTE | 2021-02-04 21:01 | RAD REPORT ---
EXAM DESCRIPTION: RAD - Chest Single View - 02/04/2021 7:06 pm CLINICAL HISTORY: Possible CVA, Stroke protocol chest film COMPARISON: Portable October 2018 TECHNIQUE: AP portable chest image was obtained 02/04/2021 7:06 pm . FINDINGS: Lung volumes are low. No peripheral mass or consolidation. Low lung volumes accentuates th e baseline interstitial pattern potentially masking mild edema or infiltrate. Heart and vasculature a re normal. No measurable pleural effusion and no pneumothorax. No acute bony abnormality seen. No acu te aortic findings suspected. IMPRESSION: No acute cardiopulmonary process. Chest is not substantially different from comparison.
[2021-02-04 21:22] VITALS: TEMP 97.4
[2021-02-04 21:23] VITALS: O2SAT 100
[2021-02-04 21:25] VITALS: BP 151/48
== END 2021-02-04 21:16 | disposition left against medical advice (07) ==
LOC: ER 18:18
DX: G45.9 Transient cerebral ischemic attack, unspecified (principal); I10 Essential (primary) hypertension
CPT/HCPCS: 93005; 85025; 80048; 36415; 85610; 82947; 85730; 70496; 70498; 70450; 71045; 99284; Q9967; J2997

== ENCOUNTER 2021-08-03 08:01 | Day surgery (SDC) | payer OTHER ==
[2021-08-03] MEDS ORDERED: NA CHLORIDE 0.9% 1,000 ML ONE (08:48)
[2021-08-03] MEDS ORDERED: propofoL 200 MG/20 ML VIAL IV ONE ×2 (10:19→10:20)
[2021-08-03] MEDS ORDERED: LIDOCAINE 1% MPF 5 ML VIAL ONE (10:20)
--- NOTE | 2021-08-03 11:37 | ENDO RPT ---
[address], [address] COLONOSCOPY PROCEDURE REPORT EXAM DATE: 08/03/2021 PATIENT NAME: Laury Alfred MR #: [id number] BIRTHDATE: 1945 ATTENDING: Tong Drew Dr STATUS: outpatient BLUEPRINT REPRODUCER: Becca German RN and Bri Aleman INDICATIONS: The patient is a 75 yr old Female here for a colonoscopy due to personal history of colon polyps PROCEDURE PERFORMED: Colonoscopy with biopsy - cold polypectomy MEDICATIONS: Per Anesthesia. ESTIMATED BLOOD LOSS: None CONSENT: The patient understands the risks and benefits of the procedure and understands that these risks include, but are not limited to: sedation, allergic reaction, infection, perforation and/or bleeding. Alternative means of evaluation and treatment include, among others: physical exam, x-rays, and/or surgical intervention. The patient elects to proceed with this endoscopic procedure. DESCRIPTION OF PROCEDURE: During intra-op preparation period all mechanical medical equipment was checked for proper function. Hand hygiene and appropriate measures for infection prevention was taken. Procedure, possible complications, alternatives including, but not limited to possibility of bleeding, perforation, tear, infection, sepsis, need for surgery, need for blood transfusion, were explained to the patient. After the risks, benefits and alternatives of the procedure were thoroughly explained, Informed consent was verified, confirmed and timeout was successfully executed by the treatment team. The patient was placed in the left lateral position. A digital rectal exam was performed and revealed no abnormalities of the rectum. After appropriate level of anesthesia, the scope was passed. The EC-3890Li ([id number]) and EC-[id number] ([id number]) endoscope was introduced through the anus and advanced to the cecum, which was identified by both the appendix and ileocecal valve. The quality of the prep was good. The instrument was then slowly withdrawn as the colon was fully examined. Scope withdrawal time was 8 minutes. COLON FINDINGS: A few smooth sessile polyps ranging between 3-5mm in size were found in the rectum. A polypectomy was performed with cold forceps. Small lipoma was found in the ascending colon. Small internal hemorrhoids were found. Retroflexed views revealed small hemorrhoids. The scope was then completely withdrawn from the patient and the procedure terminated. ADVERSE EVENTS: There were no complications. IMPRESSIONS: 1. Few sessile polyps ranging between 3-5mm in size in the rectum; polypectomy was performed with cold forceps 2. Small lipoma in the ascending colon 3. Small internal hemorrhoids 4. Intubation to cecum RECOMMENDATIONS: 1. await biopsy results 2. avoid NSAIDS for 2 weeks RECALL: Return in 3 year(s) for Colonoscopy. Tong Drew Dr eSigned: Tong Drew Dr 08/03/2021 11:37 AM cc: Bassam Pack CPT CODES: ICD9 CODES: 1. 569.0 Anal and rectal polyp 2. 214.3 Lipoma of intra-abdominal organs 3. 569.89 Other specified disorders of intestines PATIENT NAME: Aubrie Laury KaydenJoceline MR#: [id number]
[2021-08-03 12:13] VITALS: BP 127/60; TEMP 97.6
[2021-08-03 12:17] VITALS: O2SAT 99
== END 2021-08-03 12:10 | disposition home or self-care (01) ==
LOC: OR 08:01
PROVIDERS: ATTEND Internal Medicine Gastroenterology
PROC: 0DBP8ZX Excision of Rectum, Via Natural or Artificial Opening Endoscopic, Diagnostic (ICD-10-PCS; principal; 2021-08-03 10:00)
DX: K63.5 Polyp of colon (principal); K64.8 Other hemorrhoids; Q43.8 Other specified congenital malformations of intestine; E11.9 Type 2 diabetes mellitus without complications; I10 Essential (primary) hypertension; Z20.822 Contact with and (suspected) exposure to COVID-19
CPT/HCPCS: 82947; 88305; 45380; U0003; J2704 ×2; J7030

== ENCOUNTER 2021-11-05 16:04 | Emergency (ER) | payer OTHER ==
--- OUTSIDE RECORDS SUMMARY | 2021-11-05 16:06 | XMS REPORT | Continuity of Care Document ---
:1945 Author Organization [facility] t Address [address] [place] [address] Dr. Wil[address] [place] [address] Care Team Providers Name Role Phone Kayden SIERRA Attending Clinician Unavailable Payers Payer Name Policy Type Policy Number Effective Date Expiration Date S mariana MEDICARE PART A [id number] 2012 \T\ B 00:00:00 Jelly [employer] [id number] 2016 00:00:00 Problems Condition Condition Condition Status Onset Resolution Last Treating Co mments Source Name Details Category Date Date Treatment Clinician Date Bladder Bladder Problem Active [facility] Kidney Kidney Diagnosis Active [facility] stones [facility] Renal cyst Renal cyst Diagnosis Active [facility] Allergies, Adverse Reactions, Alerts Allergy Allergy Status Severity Reaction(s) Onset Inactive Treating Comm ents Source Name Type Date Date Clinician NO KNOWN Drug Active [facility] Medications Ordered Filled Start Stop Current Ordering Indication Dosage Frequency Signature Comments Components Source Medication Medication Date Date Medication? Clinician (SIG) Name Name Pravastatin Pravastatin Yes Lorenza [address] [facility] Sodium Sodium [place] [facility] Glimepiride Glimepiride Yes Lorenza [address] [facility] [place] [facility] the [facility] Outpati meal of ent the day Clinics Cinnamon Cinnamon Yes Lorenza not [facility] Antihistami Antihistami Yes Lorenza not [facility] [place] [facility] Yes Lorenza not [facility] Lisinopril Lisinopril Yes Lorenza [address] [facility] [place] [facility] Gabapentin Gabapentin Yes Lorenza [address] [facility] Procedures This patient has no known procedures. Encounters Start End Encounter Admission Attending Care Care Encounter Source Date/Time Date/Time Type Type Clinicians Facility Department ID 2020-11-30 2020-11-30 [id number] [facility] 12:30:00 12:30:00 ENRIQUE [id number] [facility] 2020-11-30 2020-11-30 [facility] [id number] [facility] 12:30:00 12:30:00 ENRIQUE [facility] 2020-11-09 2020-11-09 Outpatient [facility] [id number] [facility] 12:50:00 12:50:00 [id number] [facility] 2020-11-09 2020-11-09 [facility] [id number] [facility] 12:50:00 12:50:00 ENRIQUE [facility] 2020-06-02 2020-06-02 [facility] [id number] [facility] 10[facility]:00 10:[facility]00 [facility] Outpat[facility] ent Clinics 2019-12-01 2019-12-01 [facility] [id number] [facility] 09:00[facility]00 09:00:00 [facility] [place] [facility] Clinic Outpati ent Clinics 2019-05-26 2019-05-26 [facility] [id number] [facility] 09:[facility]00 09:00:00 t [facility] [place] [facility] [facility] Clinic Outpati ent Clinics 2019-05-13 2019-05-13 [facility] [id number] [facility] [address] 10:00:00 10:00:00 t [facility] [place] [facility] Clinic Outpati ent Clinics 2019-02-27 2019-02-27 [facility] [id number] [facility] [address] 09:30:00 09:30:00 t [facility] [place] [facility] [facility] Clinic Outpati ent Clinics 2018-10-31 2018-10-31 [facility] [id number] [facility] 09:30:00 09:30:00 t [facility] [place] [facility] Clinic Outpati ent Clinics 2018-05-01 2018-05-01 Outpatient [facility] [id number] [facility] 10:00:00 10:00:00 t [facility] [place] [facility] Clinic Outpati ent Clinics 2018-03-21 2018-03-21 Outpatient [facility]iselda [facility] [id number] [facility] 10:00:00 10:00:00 t [facility] [place] [facility]rology [facility] Clinic Outpati ent Clinics Results This patient has no known results.
[2021-11-05 16:59] LABS: Urine Blood Negative (Negative); Urine Glucose Negative (Negative); Urine Protein Negative (Negative)
[2021-11-05 17:16] LABS: Hematocrit 37.8 % (36.0-45.0); Lymphocytes % 26.8 % (15.3-44.8); MPV 7.9 fL (7.6-11.3); RBC Red Blood Cell Count 4.27 M/uL (3.86-4.86)
[2021-11-05 17:32] LABS: Urine Bacteria <20 /HPF (<20); Urine RBC <5 /HPF (NONE SEEN)
--- NOTE | 2021-11-05 18:01 | RAD REPORT ---
EXAM DESCRIPTION: CT - Stone Protocol - 11/05/2021 5:17 pm CLINICAL HISTORY: FLANK PAIN COMPARISON: Abdomen Pelvis W/Wo Contrast dated 05/21/2019 TECHNIQUE: Axial 3 mm thick images were obtained without oral or IV contrast. The [id number]-[id number] span s the entirety of the system including uppermost abdomen and lung bases. All CT scans are performed using dose optimization technique as appropriate and may include automated exposure control or mA/KV adjustment according to patient size. FINDINGS: No left-sided hydronephrosis present. No left renal edema or perinephric stranding seen. P atient has 9 millimeter and 16 millimeter sized nonobstructing calculi in the lower pole of the left kidney similar to 2019 imaging. Fullness of the right renal pelvis and calices has not change from . A 10 millimeter calcification is present at the UPJ, previously position within the pelvis. No pe rinephric stranding or evidence for right renal edema. History indicated left flank pain. No suspicio us renal masses. A 2.5 centimeter rounded low-density area lateral upper pole left kidney and a 12 mi llimeter rounded low-density area posterior mid left kidney match up with cysts seen on 2019 imaging. No suspicious interval change. Isodense masses and pyelonephritis are not excluded on a stone protoc ol CT scan. No significant adrenal finding. Mostly contracted urinary bladder shows no evidence for a bladder calculus. Pelvic floor laxity is evident. Uterus is absent. Ovaries are absent or atrophic. No adnexal mass. Imaged portions of the liver, spleen and pancreas show no suspicious findings on non-contrast imaging . No gallbladder or biliary tree abnormality identified. No suspicious bowel findings. No appendicitis findings. Small bowel anastomotic site has no acute com ponent. No active GI process identifiable. No mass or bulky lymphadenopathy identified. A cluster of small fat only ventral hernias are seen jus t left of midline supraumbilical abdominal wall. No congestion or edema. There is mesh material from prior hernia repair along the umbilical and infraumbilical midline abdominal wall. Findings are simil ar to 2019. No free air, free fluid or inflammatory stranding. No significant bony abnormality. IMPRESSION: Noncontrast abdomen and pelvis imaging shows no acute or emergent finding. Patient has nonobstructing calculi lower pole left kidney. No abnormality seen to explain the provide d history of left flank pain. Patient has a 10 millimeter right UPJ calculus that has migrated from the renal pelvis in 2019. The p andre and calices on the right show no new dilatation to suspect right-sided obstruction. No abnormal lymphadenopathy, mass or other finding of recurrent malignancy. Isodense masses and pyelonephritis are not excluded on stone protocol technique.
--- NOTE | 2021-11-05 18:11 | EDPHYS ---
Physician Documentation [facility] Name: Laury Alfred Age: 76 yrs Sex: Female : 1945 Arrival Date: 11/05/2021 Time: 16:05 Bed 14 Private MD: Stevie Latham R ED Physician Todd Harley HPI: 11/05 17:13 This 76 yrs old Female presents to ER via Ambulatory with complaints of Possible Kidney jr8 Stone. 17:14 The patient complains of pain in the left flank. The pain radiates to the pelvis. jr8 Onset: The symptoms/episode began/occurred acutely, today. Modifying factors: The symptoms are alleviated by nothing. the symptoms are aggravated by nothing. Associated signs and symptoms: The patient has no apparent associated signs or symptoms. Severity of pain: At its worst the pain was mild in the emergency department the pain is unchanged. The patient has experienced similar episodes in the past, a few times. The patient has not recently seen a physician. Patient stated that she has past a few stones in the past which feel the same today but less pain noted today when compared to the past . Historical: - Allergies: 16:20 No Known Allergies; ab2 - PMHx: 16:20 Diabetes - NIDDM; High Cholesterol; Hypertension; neuropathy; Non-Hodgkins Lymphoma; ab2 spinal stenosis; Non-Hodgkins Lymphona; - PSHx: 16:20 hysterectomy; ab2 - Immunization history:: Adult Immunizations up to date. - Social history:: Smoking status: Patient denies any tobacco usage or history of. ROS: 17:14 Eyes: Negative for injury, pain, redness, and discharge, ENT: Negative for injury, jr8 pain, and discharge, Neck: Negative for injury, pain, and swelling, Cardiovascular: Negative for chest pain, palpitations, and edema, Respiratory: Negative for shortness of breath, cough, wheezing, and pleuritic chest pain, Abdomen/GI: Negative for abdominal pain, nausea, vomiting, diarrhea, and constipation, MS/Extremity: Negative for injury and deformity, Skin: Negative for injury, rash, and discoloration, Neuro: Negative for headache, weakness, numbness, tingling, and seizure. 17:14 Back: Positive for flank pain, on the left. Exam: 17:14 Constitutional: This is a well developed, well nourished patient who is awake, alert, jr8 and in no acute distress. Cardiovascular: Regular rate and rhythm with a normal S1 and S2. No gallops, murmurs, or rubs. Normal PMI, no JVD. No pulse deficits. Respiratory: Lungs have equal breath sounds bilaterally, clear to auscultation and percussion. No rales, rhonchi or wheezes noted. No increased work of breathing, no retractions or nasal flaring. Back: No spinal tenderness. No costovertebral tenderness. Full range of motion. Skin: Warm, dry with normal turgor. Normal color with no rashes, no lesions, and no evidence of cellulitis. MS/ Extremity: Pulses equal, no cyanosis. Neurovascular intact. Full, normal range of motion. Neuro: Awake and alert, GCS 15, oriented to person, place, time, and situation. Cranial nerves II-XII grossly intact. Motor strength 5/5 in all extremities. Sensory grossly intact. 17:14 Abdomen/GI: Inspection: abdomen appears normal, Bowel sounds: active, all quadrants, Palpation: soft, in all quadrants, mild abdominal tenderness, in the anterior aspect of left lateral abdomen, mass, is not appreciated, rebound tenderness, is not appreciated, voluntary guarding, is not appreciated, involuntary guarding, is not appreciated, no appreciated organomegaly, Indicators: McBurney's point is not tender, Boston's sign is negative, Rovsing's sign is negative, Liver: tenderness, is not appreciated. Vital Signs: 16:16 BP 154 / 70; Pulse 67; Resp 18; Temp 98.2(TE); Pulse Ox 98% on R/A; Weight 99.34 kg; ab2 Height 5 ft. 5 in. (165.10 cm); Pain 5/10; 18:00 BP 142 / 76; Pulse 70; Resp 18; Pulse Ox 98% ; jh6 16:16 Body Mass Index 36.44 (99.34 kg, 165.10 cm) ab2 MDM: 16:29 Patient medically screened. jr8 18:06 Data reviewed: vital signs, nurses notes, lab test result(s), radiologic studies, CT jr8 scan. Data interpreted: Pulse oximetry: on room air is 98 %. Interpretation: normal. Counseling: I had a detailed discussion with the patient and/or guardian regarding: the historical points, exam findings, and any diagnostic results supporting the discharge/admit diagnosis, lab results, radiology results, the need for outpatient follow up, a family practitioner, to return to the emergency department if symptoms worsen or persist or if there are any questions or concerns that arise at home. ED course: Spoke with patient that there was no findings on CT to suggest her left sided flank pain. Did tell her that her right renal stone migrated but no obstruction at this time. To keep watchful eye on that side though. If worse to come back for reevaluation. Otherwise to f/u with PCP in next few days. Patient good with this. 11/05 16:35 Order name: Basic Metabolic Panel; Complete Time: 17:50 [facility] 11/05 16:35 Order name: CBC with Diff; Complete Time: 17:50 [facility] 11/05 16:35 Order name: CT Stone Protocol; Complete Time: 18:03 [facility] 11/05 16:35 Order name: Urine Microscopic Only; Complete Time: 17:50 [facility] 11/05 16:59 Order name: Urine Dipstick-Ancillary; Complete Time: 17:15 [facility] 11/05 17:33 Order name: Urine Culture [facility] 11/05 16:35 Order name: IV Saline Lock; Complete Time: 16:58 8 11/05 16:35 Order name: Labs collected and sent; Complete Time: 16:58 8 11/05 16:35 Order name: Urine Dipstick-Ancillary (obtain specimen); Complete Time: 16:58 jr8 Administered Medications: No medications were administered Disposition: 18:25 Co-signature as Attending Physician, Todd Harlye MD I agree with the assessment and rn plan of care. Attestation: The patient's history, exam findings, diagnostics, and a summary of any interventions or procedures was reviewed in detail with Ashish PERRY. Disposition Summary: 11/05/21 18:10 Discharge Ordered Location: Home [facility] Problem: new jr8 Symptoms: have improved jr8 Condition: Stable jr8 Diagnosis - Abdominal pain, unspecified jr8 Followup: jr8 - With: Stevie Latham MD - When: 1 - 2 days - Reason: Recheck today's complaints, Continuance of care, Re-evaluation by your physician Discharge Instructions: - Discharge Summary Sheet jr8 - Abdominal Pain, Adult jr8 - Flank Pain, Adult jr8 Forms: - Medication Reconciliation Form jr8 - Thank You Letter jr8 - Antibiotic Education jr8 - Prescription Opioid Use jr8 Signatures: Dispatcher [employer] Todd Mendoza MD MD rn Roszak, Josh, PA PA jr8 Derian Spain
--- NOTE | 2021-11-05 18:11 | ER ---
Nurse's Notes [facility] Name: Laury Alfred Age: 76 yrs Sex: Female : 1945 Arrival Date: 11/05/2021 Time: 16:05 Bed 14 Private MD: Stevie Latham R Diagnosis: Abdominal pain, unspecified Presentation: 11/05 16:16 Chief complaint: Patient states: "I don't know if its a kidney stone because I've had a ab2 lot of them but this doesn't feel quite as bad. Its a similar feeling but not as bad as normal. I have left flank pain that radiates into my left groin.". Coronavirus screen: Vaccine status: Patient reports receiving the 2nd dose of the covid vaccine. Client denies travel out of the [place] in the last 14 days. At this time, the client does not indicate any symptoms associated with coronavirus-19. Ebola Screen: Patient negative for fever greater than or equal to 101.5 degrees Fahrenheit, and additional compatible Ebola Virus Disease symptoms Patient denies exposure to infectious person. Patient denies travel to an Ebola-affected area in the 21 days before illness onset. No symptoms or risks identified at this time. Initial Sepsis Screen: Does the patient meet any 2 criteria? No. Patient's initial sepsis screen is negative. Does the patient have a suspected source of infection? No. Patient's initial sepsis screen is negative. Risk Assessment: Do you want to hurt yourself or someone else? Patient reports no desire to harm self or others. Onset of symptoms is unknown. 16:16 Method Of Arrival: Ambulatory ab2 16:16 Acuity: SUKH 3 ab2 Triage Assessment: 16:21 General: Appears in no apparent distress. comfortable, Behavior is calm, cooperative, ab2 appropriate for age. Pain: Complains of pain in left low back Pain currently is 5 out of 10 on a pain scale. GI: Reports lower abdominal pain. Historical: - Allergies: 16:20 No Known Allergies; ab2 - PMHx: 16:20 Diabetes - NIDDM; High Cholesterol; Hypertension; neuropathy; Non-Hodgkins Lymphoma; ab2 spinal stenosis; Non-Hodgkins Lymphona; - PSHx: 16:20 hysterectomy; ab2 - Immunization history:: Adult Immunizations up to date. - Social history:: Smoking status: Patient denies any tobacco usage or history of. Screenin:39 Abuse screen: Denies threats or abuse. Nutritional screening: No deficits noted. jh6 Tuberculosis screening: No symptoms or risk factors identified. Fall Risk None identified. Assessment: 16:38 General: Appears in no apparent distress. comfortable, Behavior is calm, cooperative. jh6 Pain: Complains of pain in left mid back Pain radiates to left lower quadrant Pain currently is 6 out of 10 on a pain scale. Quality of pain is described as aching, shooting. Vital Signs: 16:16 BP 154 / 70; Pulse 67; Resp 18; Temp 98.2(TE); Pulse Ox 98% on R/A; Weight 99.34 kg; ab2 Height 5 ft. 5 in. (165.10 cm); Pain 5/10; 18:00 BP 142 / 76; Pulse 70; Resp 18; Pulse Ox 98% ; jh6 16:16 Body Mass Index 36.44 (99.34 kg, 165.10 cm) ab2 ED Course: 16:05 Patient arrived in ED. as 16:06 Stevie Latham MD is Private Physician. as 16:20 Triage completed. ab2 16:22 Arm band placed on right wrist. ab2 16:25 Taniya Spear, KARINA is Primary Nurse. jh6 16:29 Ashish Garcia PA is PHCP. jr8 16:29 Todd Harley MD is Attending Physician. jr8 16:39 No provider procedures requiring assistance completed. jh6 16:58 Urine collected: clean catch specimen, clear. Inserted saline lock: 20 gauge in right jh6 antecubital area, using aseptic technique. Blood collected. 17:00 Bed in low position. Call light in reach. Side rails up X 1. jh6 17:16 CT Stone Protocol In Process Unspecified. EDMS 18:10 Stevie Latham MD is Referral Physician. jr8 18:15 IV discontinued, intact, bleeding controlled, No redness/swelling at site. Pressure jh6 dressing applied. Administered Medications: No medications were administered Outcome: 18:10 Discharge ordered by . jr8 18:15 Discharged to home ambulatory. jh6 18:15 Condition: good 18:15 Discharge instructions given to patient, Instructed on discharge instructions, follow up and referral plans. Demonstrated understanding of instructions, follow-up care. 18:20 Patient left the ED. jh6 Signatures: Dispatcher [employer] Rosette Patel Josh, PA PA jr8 Taniya Spear RN RN jh6 Derian Spain2
[2021-11-05 18:31] VITALS: TEMP 98.2; O2SAT 98
[2021-11-05 18:32] VITALS: BP 142/76
== END 2021-11-05 18:20 | disposition home or self-care (01) ==
LOC: ER 16:04
DX: R10.9 Unspecified abdominal pain (principal); Z87.442 Personal history of urinary calculi; I10 Essential (primary) hypertension; E11.9 Type 2 diabetes mellitus without complications; Z85.72 Personal history of non-Hodgkin lymphomas
CPT/HCPCS: 36415; 74176; 76377; 80048; 81003; 81015; 85025; 87086; 87088; 99283

== ENCOUNTER 2021-11-24 07:02 | Day surgery (SDC) | payer OTHER ==
[2021-11-21 11:51] LABS: Absolute Lymphocytes (CBC) 1.7 K/uL (0.7-4.9); Hematocrit 37.2 % (36.0-45.0); Lymphocytes % 27.2 % (15.3-44.8); MPV 7.8 fL (7.6-11.3)
[2021-11-21 12:05] LABS: BUN Blood Urea Nitrogen 15 mg/dL (7-18); Bicarbonate 32 mmol/L (21-32); Glucose Level 95 mg/dL (74-106); Potassium 3.8 mmol/L (3.5-5.1); Sodium Level 143 mmol/L (136-145)
--- NOTE | 2021-11-22 12:52 | EKG ---
Test Date: 2021-11-21 Test Time: 11:31:25 [place] Boner: ZEFERINO MEASUREMENT RESULTS: Intervals: Rate: 55 KS: 192 QRSD: 90 QT: 446 QTc: 426 [place]: P: 67 KS: 192 QRS: 61 T: 62 INTERPRETIVE STATEMENTS: Sinus bradycardia Otherwise normal ECG Compared to ECG 02/04/2021 18:44:16 Sinus rhythm no longer present Electronically Signed On 11-22-21 12:49:46 MEDICAL RECORD TECHNICIAN by Tima Epstein
[2021-11-24] MEDS ORDERED: propofoL 200 MG/20 ML VIAL IV ONE (07:34)
[2021-11-24] MEDS ORDERED: LIDOCAINE 1% MPF 5 ML VIAL ONE (07:35)
[2021-11-24] MEDS ORDERED: FENTANYL CITR 100 MCG/2 ML ONE (07:35)
[2021-11-24] MEDS ORDERED: CEFAZOLIN SODIUM 1 GM/VIAL ONE (07:37)
[2021-11-24] MEDS: NA CHLORIDE 0.9% 1,000 ML ONE ×2 (07:43→09:05)
[2021-11-24] MEDS ORDERED: CELECOXIB 100 MG CAPSULE ONE (08:03)
[2021-11-24] MEDS ORDERED: ACETAMINOPHEN 500 MG TAB ONE (08:04)
[2021-11-24] MEDS ORDERED: LIDOCAINE 1% MPF 30 ML VIAL ONE (08:51)
[2021-11-24] MEDS ORDERED: BUPIVACAINE 0.5% PF 10 ML VIAL ONE (08:51)
[2021-11-24] MEDS ORDERED: ONDANSETRON 4 MG/2 ML VIAL ONE (09:25)
[2021-11-24] MEDS ORDERED: KETOROLAC 30 MG/ML INJ ONE (09:25)
--- NOTE | 2021-11-24 09:37 | P.OP ---
[employer]: Al CASTAÑEDA Preoperative diagnosis: Left arm mass Postoperative diagnosis: Same Primary procedure: Excision left arm mass 5 x 2 cm with layered closure Anesthesia: General Estimated blood loss: Minimal Specimen: Left arm mass Findings: Likely a lipoma Operative Technique: Patient brought to the OR and placed in the supine position. General anesthesia begun patient prepped draped in the usual sterile fashion. Marcaine 0.5% infiltrated locally for postop pain control. 15 blade used to make a 5 cm incision on the lateral aspect of the left upper arm. Subcutaneous tissue divided. Approximately a 4 x 3 cm lipoma excised in the deep subcutaneous tissue. Wound irrigated bleeding controlled cautery. 3-0 chromic used to reapproximate subcutaneous tissue. 4-0 Monocryl used to close skin. Sterile dressing applied and patient awakened. Patient tolerated the procedure in stable condition taken to recovery room in good general condition. Complications: None Transferred to: Recovery Room Condition: Good
[2021-11-24] MEDS ORDERED: Mastisol Adhesive Liq ONE (09:39)
[2021-11-24 11:15] VITALS: BP 98/73; TEMP 96.8; O2SAT 100
== END 2021-11-24 11:00 | disposition home or self-care (01) ==
LOC: OR 07:02
PROVIDERS: ATTEND Surgery
PROC: 0JBH0ZZ Excision of Left Lower Arm Subcutaneous Tissue and Fascia, Open Approach (ICD-10-PCS; principal; 2021-11-24 08:30)
DX: D17.22 Benign lipomatous neoplasm of skin and subcutaneous tissue of left arm (principal)
CPT/HCPCS: 93005; 85025; 80048; 36415; 82947 ×2; 88304; 11406; J2704; J3010; J7030; J2405; J0690; 88305

== ENCOUNTER 2023-07-13 07:02 | Emergency (ER) | payer OTHER ==
--- OUTSIDE RECORDS SUMMARY | 2023-07-13 07:07 | XMS REPORT | Continuity of Care Document ---
:1945 Author Organization [facility] t Address [address] [facility] [address] [place] [address] Care Team Providers Name Role Phone Stevie Pack MD Primary Care Physician [phone] Stevie Pack Attending Clinician Unavailable Tom Fortune Attending Clinician ALIYA ROSA Attending Clinician Unavailable Doctor Unassigned, [place] Attending Clinician Unavailable KELSEY VALENTINE Attending Clinician Unavailable KELSEY VALENTINE Attending Clinician Unavailable ENRIQUE SIERRA Attending Clinician Unavailable Payers Payer Name Policy Type Policy Number Effective Date Expiration Date Khadra peña MEDICARE PART A [id number] 2012 \T\ B 00:00:00 Digitel [id number] 2016 00:00:00 Problems Condition Condition Condition Status Onset Resolution Last Treating Co mments Source Name Details Category Date Date Treatment Clinician Date Vaginal Vaginal Disease Active [facility] pain pain 9-13 ity of 00:00: [address] Branch DM DM Disease Active Univers (diabetes (diabetes 9-13 ity of mellitus) mellitus) 00:00: [place] type I, type I, 00 Medical controlled controlled Br anch , with , with peripheral peripheral vascular vascular disorder disorder History of History of Disease Active U jamarcus hypertensi hypertensi 9-13 it y of on on 00:00: [place] [id number] Medical Branch Chronic Chronic Disease Active Univers hip pain, hip pain, 9- ity of unspecif[place] laterality laterality Br anch History of History of Disease Active U jamarcus hysterecto hysterecto - it y of my my 00:00: [place] [id number] Medical Branch 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 Kvng n (disorder) (disorder) Resolved Problem 06/24/2022 [facility] Spinal Spinal Problem Resolve 2022-06-24 Me moria stenosis stenosis d 04:26:48 l (disorder) (disorder) He rmann Resolved Problem 06/24/2022 [facility] [id number] Bladder Problem Commo n mass [facility] [id number] Kidney Problem Common stones [facility] Amnesia Amnesia Problem Active 2023-06-02 Me moria (finding) (finding) 13:26:27 l Active [place] Problem 06/02/2023 [facility] [place] Bilateral Bilateral Problem Active 2023-06-02 Memoria stenosis stenosis 13:26:27 l of carotid of carotid He [employer] [facility] arteries arteries Active Problem 06/02/2023 [facility] [place] Depressive Depressiv Problem Active 2023-06-02 Memoria disorder e disorder 13:26:27 l (disorder) (disorder) He rmann Active Problem 06/02/2023 [facility] [place] Hyperlipid Hyperlipi Problem Active 2023-06-02 Memoria emia demia 13:26:27 l (disorder) (disorder) He [employer] [facility] Active Problem 06/02/2023 [facility] Hypertensi Hypertens Problem Active 2023-06-02 Memoria ve amilcar 13:26:27 l disorder, disorder, Herm rusty systemic systemic arterial arterial (disorder) (disorder) Active Problem 06/02/2023 [facility] Lumbar Lumbar Problem Active 2023-06-02 [facility] radiculopa radiculopa 13:26:27 l thy thy [place] (disorder) (disorder) Active Problem 06/02/2023 [facility] [place] Neurologic Neurologi Problem Active 2023-06-02 Memoria al symptom monica 13:26:27 l findings symptom Prasanna (context-d findings ependent (context-d category) ependent category) Active Problem 06/02/2023 [facility] Numbness Numbness Problem Active 2023-06-02 Memoria of face of face 13:26:27 l (finding) (finding) Herm rusty Active Problem 06/02/2023 [facility] Transient Transient Problem Active 2023-06-02 Memoria ischemic ischemic 13:26:27 l attack attack [place] (disorder) (disorder) Active Problem 06/02/2023 [facility] Diabetes Diabetes Problem Active 2023-06-02 Memoria mellitus mellitus 13:26:27 l type 2 type 2 [place] (disorder) (disorder) Active Problem 06/02/2023 [facility] 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 (disorder) system (disorder) Active Problem 04/28/2023 [facility] [place] Allergies, Adverse Reactions, Alerts Allergy Allergy Status Severity Reaction(s) Onset Inactive Treating Comm ents Source Name Type Date Date Clinician No Known No Known Active Memori a Medicati Medicati l on on Prasanna Poon Allergshilpi s s Family History Family Member Diagnosis Comments Start Date Stop Date Source Natural father Cancer [facility] Natural father Hypertension [facility] Natural father Stroke [facility] mother Cancer [facility] mother Hypertension [facility] sister Cancer [facility] sister Diabetes [facility] Social History Social Habit Start Date Stop Date Quantity Comments Source History of Tobacco [facility] - Use [facility] Sexual orientation Method [facility] Tobacco use and 2022-05-30 2022-05-30 Smokeless Universit y of exposure 00:00:00 00:00:00 tobacco non-user [facility] Exposure to 2022-05-19 2022-05-29 Not sure University of SARS-CoV-2 (event) 00:00:00 12:43:00 [facility] Alcohol intake 2018-01-22 2018-01-22 Current [facility] 00:00:00 00:00:00 non-drinker of Hospital alcohol (finding) History of Social 2017-12-14 2017-12-[address] function 00:00:00 00:00:00 Hospital Sex Assigned At [birth year] [facility] 00:[facility]00 Hospital Smoking Status Start Date Stop Date Source Tobacco smoking status 2023-05-30 16:22:23 2023-05-30 16:22:23 [facility] Never smoked tobacco [facility] Medications Ordered Filled Start Stop Current Ordering Indication Dosage Frequency Signature Comments Components Source Medication Medication Date Date Medication? Clinician (SIG) Name Name DULoxetine Yes See Memoria 30 mg oral 05-29 Instructio l delayed 23:01: ns, TAKE Kvgn n release 00 ONE (1) capsule CAPSULE(S) BY MOUTH ONCE A DAY., # 30 ea, 4 Refill(s), Pharmacy: [id number], 162.56, cm, 04/18/23 10:35:00 CDT, Height, 90.455, kg, 04/18/23 10:35:00 CDT, Weight donepezil 5 2022-0 Yes See Memori a mg oral 8-08 Instructio l tablet 18:00: ns, TAKE Prasanna 00 ONE (1) TABLET(S) BY MOUTH AT BEDTIME., # 30 ea, 5 Refill(s), Pharmacy: [place] [id number], 162.56, cm, 04/18/23 10:35:00 CDT, Height, 90.455, kg, 04/18/23 10:35:00 CDT, Weight Aricept 5 0 Yes 5 mg = 1 Uriel jeny mg oral 4-18 tab, PO, l tablet 17:07: Bedtime, # Rosa nn 00 30 tab, 3 Refill(s), Pharmacy: [facility], 162.56, cm, 01/02/23 11:39:00 CDT, Height, 93.636, kg, 01/02/23 11:39:00 CDT, Weight Cymbalta 30 2022-0 Yes 30 mg = 1 M emoria mg oral 4-18 cap, PO, l delayed 17:07: Daily, # Kvng n release 00 30 cap, 3 capsule Refill(s), Pharmacy: [facility], 162.56, cm, 01/02/23 11:39:00 CDT, Height, 93.636, kg, 01/02/23 11:39:00 CDT, Weight Aricept 2021-09 Yes 5 mg = 1 Uriel jeny mg oral 2-19 tab, PO, l tablet 16:23: Bedtime, # Rosa nn 00 30 tab, 3 Refill(s), Pharmacy: [facility], 162.56, cm, 09/04/22 10:13:00 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, Height, 97.727, kg, 09/04/22 10:13:00 [employer] 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, Weight Aricept 5 2021-09 Yes 5 mg = 1 Uriel jeny mg oral 2-19 tab, PO, l tablet 16:23: Bedtime, # Rosa nn 00 30 tab, 3 Refill(s), Pharmacy: [facility], 162.56, cm, 09/04/22 10:13:00 [employer] 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, Height, 97.727, kg, 09/04/22 10:13:00 [employer]OD 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, Weight Cycherriealta 2021-09 Yes 30 mg = 1 M emoria mg oral 0-05 cap, PO, l delayed 15:47: Daily, # Kvng n release 00 30 cap, 3 capsule Refill(s), Pharmacy: [facility], 162.56, cm, 06/21/22 10:31:00 CDT, Height, 101.591, kg, 06/21/22 10:31:00 CDT, Weight Cymbalta 2021-09 Yes 30 mg = 1 M emoria mg oral 0-05 cap, PO, l delayed 15:47: Daily, # Kvng n release 00 30 cap, 3 capsule Refill(s), Pharmacy: [facility], 162.56, cm, 06/21/22 10:31:00 CDT, Height, 101.591, kg, 06/21/22 10:31:00 CDT, Weight Cymbalta 2021-09 Yes 30 mg = 1 M emoria mg oral 0-05 cap, PO, l delayed 15:47: Daily, # Kvng n release 00 30 cap, 3 capsule Refill(s), Pharmacy: [facility], 162.56, cm, 06/21/22 10:31:00 CDT, Height, 101.591, kg, 06/21/22 10:31:00 CDT, Weight estradioL 2021-0 Yes [id number] Apply 1g Univers (ESTRACE) 9-19 vaginally ity o f 0.01 % (0.1 00:00: at bedtime [place] mg/gram) 00 every Medical vaginal night for Branch cream 2 weeks and then apply 1g vaginally at bedtime 2-3 times per week Aricept 5 2021-0 Yes 5 mg = 1 Uriel jeny mg oral 8-23 tab, PO, l tablet 15:08: Bedtime, # Rosa nn 00 30 tab, 3 Refill(s), Pharmacy: [facility], 162.56, cm, 05/09/22 9:44:00 CDT, Height, 100.114, kg, 05/09/22 9:44:00 CDT, Weight Aricept 5 2021-0 Yes 5 mg = 1 Uriel jeny mg oral 8-23 tab, PO, l tablet 15:08: Bedtime, # Rosa nn 00 30 tab, 3 Refill(s), Pharmacy: [facility], 162.56, cm, 05/09/22 9:44:00 CDT, Height, 100.114, kg, 05/09/22 9:44:00 CDT, Weight Aricept 5 2021-0 Yes 5 mg = 1 Uriel jeny mg oral 8-23 tab, PO, l tablet 15:08: Bedtime, # Rosa nn 00 30 tab, 3 Refill(s), Pharmacy: [facility], 162.56, cm, 05/09/22 9:44:00 CDT, Height, 100.114, kg, 05/09/22 9:44:00 CDT, Weight donepeziL 5 2021-0 Yes Univer s mg tablet - ity of 00:00: [address] Ticagrelor 1-0 Yes 90 mg = 1 Me moria 90 MG Oral 6-10 tab, PO, l Tablet 19:10: BID, # 60 Kvng n [Brilinta] 00 tab, 3 Refill(s), Pharmacy: [facility], 162.56, cm, 02/24/21 13:13:00 CDT, Height, 99.682, kg, 02/24/21 13:13:00 CDT, Weight Ticagrelor 2020-0 Yes 90 mg = 1 Me moria 90 MG Oral 6-10 tab, PO, l Tablet 19:10: BID, # 60 Kvng n [Brilinta] 00 tab, 3 Refill(s), Pharmacy: [facility], 162.56, cm, 02/24/21 13:13:00 CDT, Height, 99.682, kg, 02/24/21 13:13:00 CDT, Weight Ticagrelor 1-0 Yes 90 mg = 1 Me moria 90 MG Oral 6-10 tab, PO, l Tablet 19:10: BID, # 60 Kvng n [Brilinta] 00 tab, 3 Refill(s), Pharmacy: [facility], 162.56, cm, 02/24/21 13:13:00 CDT, Height, 99.682, kg, 02/24/21 13:13:00 CDT, Weight [facility] Yes 1 cap, PO, M emoria Formula 6-10 Daily, # l oral 18:17: 30 cap, 0 Prasanna capsule 00 Refill(s) [facility] Yes 1 cap, PO, M emoria Formula 6-10 Daily, # l oral 18:17: 30 cap, 0 Prasanna capsule 00 Refill(s) [facility] Yes 1 cap, PO, M emoria Formula 6-10 Daily, # l oral 18:17: 30 cap, 0 [place] capsule 00 Refill(s) Aspirin 81 Yes 81 mg = 1 Me moria MG Enteric 6-10 tab, PO, l Coated 18:16: Daily, # [place] Tablet 00 90 tab, 3 Refill(s) glimepiride Yes 1 mg = 1 Me moria 1 mg oral 6-10 tab, PO, l tablet 18:16: Breakfast, Rosa nn 00 # 30 tab, 0 Refill(s) aspirin 81 Yes 81 mg = 1 Me moria mg tablet, 6-10 tab, PO, l enteric 18:16: Daily, # Kvng n coated 00 90 tab, 3 Refill(s) glimepiride Yes 1 mg = 1 Me moria 1 mg oral 6-10 tab, PO, l tablet 18:16: Breakfast, Rosa nn 00 # 30 tab, 0 Refill(s) Aspirin 81 Yes 81 mg = 1 Me moria MG Enteric 6-10 tab, PO, l Coated 18:16: Daily, # Prasanna Tablet 00 90 tab, 3 Refill(s) aspirin 81 Yes 81 mg = 1 Me moria mg tablet, 6-10 tab, PO, l enteric 18:16: Daily, # Kvng n coated 00 90 tab, 3 Refill(s) glimepiride Yes 1 mg = 1 Me moria 1 mg oral 6-10 tab, PO, l tablet 18:16: Breakfast, Rosa nn 00 # 30 tab, 0 Refill(s) Aspirin 81 2020-0 Yes 81 mg = 1 Me moria MG Enteric 6-10 tab, PO, l Coated 18:16: Daily, # Prasanna Tablet 00 90 tab, 3 Refill(s) glimepiride 2018-0 Yes 1mg QD Take 1 mg M ethodi (AMARYL) 1 5-[address] MG tablet 17:06: daily Hospita 55 before l breakfast. gabapentin 2018-0 Yes 300mg [id number] Take 300 Methodi (NEURONTIN) 5-07 [id number] mg by s t 300 mg 17:06: 3D mouth 3 Hospita capsule 55 (three) l times a day. lisinopril 2018-0 Yes 5mg QD Take 5 mg Me thodi (PRINIVIL,Z 5-[address] ESTRIL) 5 17:06: daily. Hospit a mg tablet 55 l glimepiride 2018-0 Yes 1mg QD Take 1 mg M ethodi (AMARYL) 1 5-[address] MG tablet 17:06: daily Hospita 55 before l breakfast. gabapentin 2018-0 Yes 300mg [id number] Take 300 Methodi (NEURONTIN) 5-07 [id number] mg by s t 300 mg 17:06: 3D mouth 3 Hospita capsule 55 (three) l times a day. lisinopril 2018-0 Yes 5mg QD Take 5 mg Me thodi (PRINIVIL,Z 5-[address] ESTRIL) 5 17:06: daily. Hospit a mg tablet 55 l pravastatin 2018-0 Yes 40mg QD Take 40 mg Methodi (PRAVACHOL) 5-[address] 40 MG 17:06: daily. Hospita tablet 55 l traMADol 2018-0 Yes 50mg Q6H Take 50 mg Met hodi (ULTRAM) 50 5-[address] mg tablet 17:06: every 6 Hospi ta 55 (six) l hours as needed for moderate pain. cinnamon 2018-0 Yes 500mg QD Take 500 Meth pablo bark 5-[address] (CINNAMON) 17:06: mouth Hospit a 500 mg 55 daily. l capsule diphenhydrA 2018-0 Yes 25mg QD Take 25 mg Methodi MINE 5-[address] (BENADRYL) 17:06: nightly as H ospita 25 mg 55 needed for l tablet sleep. pravastatin 2018-0 Yes 40mg QD Take 40 mg Methodi (PRAVACHOL) 5-[address] 40 MG 17:06: daily. Hospita tablet 55 l traMADol 2018-0 Yes 50mg Q6H Take 50 mg Met hodi (ULTRAM) 50 5-[address] mg tablet 17:06: every 6 Hospi ta 55 (six) l hours as needed for moderate pain. cinnamon 2018-0 Yes 500mg QD Take 500 Meth pablo bark 5-[address] (CINNAMON) 17:06: mouth Hospit a 500 mg 55 daily. l capsule diphenhydrA 2018-0 Yes 25mg QD Take 25 mg Methodi MINE 5-[address] (BENADRYL) 17:06: nightly as H ospita 25 mg 55 needed for l tablet sleep. glimepiride 2018-0 Yes 1mg QD Take 1 mg M ethodi (AMARYL) 1 5-[address] MG tablet 17:06: daily Hospita 55 before l breakfast. gabapentin 2018-0 Yes 300mg [id number] Take 300 Methodi (NEURONTIN) 5-07 [id number] mg by s t 300 mg 17:06: 3D mouth 3 Hospita capsule 55 (three) l times a day. lisinopril 2018-0 Yes 5mg QD Take 5 mg Me thodi (PRINIVIL,Z 5-[address] ESTRIL) 5 17:06: daily. Hospit a mg tablet 55 l pravastatin 2018-0 Yes 40mg QD Take 40 mg Methodi (PRAVACHOL) 5-[address] 40 MG 17:06: daily. Hospita tablet 55 l traMADol 2018-0 Yes 50mg Q6H Take 50 mg Met hodi (ULTRAM) 50 5-[address] mg tablet 17:06: every 6 Hospi ta 55 (six) l hours as needed for moderate pain. cinnamon 2018-0 Yes 500mg QD Take 500 Meth pablo bark 5-[address] (CINNAMON) 17:06: mouth Hospit a 500 mg 55 daily. l capsule diphenhydrA 2018-0 Yes 25mg QD Take 25 mg Methodi MINE 5-[address] (BENADRYL) 17:06: nightly as H ospita 25 mg 55 needed for l tablet sleep. sodium,pota Yes Take as Met hodi ssium,mag 4-[address] sulfates 00:00: by Hospita (SUPREP 00 Physician. l BOWEL PREP KIT) 17.5-3.13-1 .6 gram recon soln sodium,pota Yes Take as Met hodi ssium,mag 4-[address] sulfates 00:00: by Hospita (SUPREP 00 Physician. l BOWEL PREP KIT) 17.5-3.13-1 .6 gram recon soln sodium,pota Yes Take as Met hodi ssium,mag 4-[address] sulfates 00:00: by Hospita (SUPREP 00 Physician. l BOWEL PREP KIT) 17.5-3.13-1 .6 gram recon soln methylPREDN 2016-09 Yes 84mg Take 21 Uni vers ISolone 0-18 tablets by ity of (MEDROL, 00:00: mouth [place] FABIOLA,) 4 mg 00 SEE-INSTRU Med ical tablets CTIONS. Branch follow package directions metFORMIN 2016-09 Yes Univers 1,000 mg 0-17 ity of tablet 00:00: [place] 00 Medical Branch carisoprodo 2016-09 Yes TAKE ONE Un donald l 350 mg 0-13 (1) ity of tablet 00:00: TABLET(S) [place] 00 BY MOUTH Medical EVERY Branch EIGHT HOURS NEEDED. meloxicam 2016-09 Yes TAKE ONE Univ ers 7.5 mg 0-11 (1) ity of tablet 00:00: TABLET(S) [place] 00 BY MOUTH Medical ONCE A DAY Branch AFTER A MEAL. glimepiride 2016-09 Yes TAKE ONE Un donald 1 mg tablet 0-04 (1) ity of 00:00: TABLET(S) [place] 00 BY MOUTH Medical IN THE Branch EVENING. predniSONE Yes TAKE ONE Uni vers 20 mg 9-18 (1) ity of tablet 00:00: TABLET(S) [place] 00 BY MOUTH Medical TWICE A Branch DAY. triamcinolo Yes APPLY TO Un donald ne 9-18 AFFECTED ity of acetonide 00:00: [place]A [place]ICE [place] 0.1 % cream 00 A DAY. Medica l Branch pravastatin Yes TAKE ONE Un donald 40 mg 8-30 (1) ity of tablet 00:00: TABLET(S) BY MOUTH Medical AT Branch BEDTIME. gabapentin Yes TAKE TWO Uni vers 100 mg 05-09 (2) ity of capsule 00:00: CAPSULE(S) [place] BY MOUTH Medical TWICE A Branch DAY. ONETOUCH Yes TEST ONCE Univ ers ULTRA2 Kit 04-19 A DAY. ity of 00:00: [address] Branch lisinopril Yes TAKE ONE Uni vers 5 mg tablet 04-19 (1) ity of 00:00: TABLET(S) BY MOUTH Medical EVERY Branch MORNING. metFORMIN Yes 500 mg = 1 Me moria 500 mg oral 3-08 tab, PO, l tablet 16:02: BID, # 30 Kvng n 00 tab, 0 Refill(s) lisinopril Yes 5 mg = 1 Mem oria 5 mg oral 3-08 tab, PO, l tablet 16:02: Daily, # Prasanna 00 30 tab, 0 Refill(s) pravastatin Yes 40 mg = 1 M emoria 40 mg oral 3-08 tab, PO, l tablet 16:02: Bedtime, # Rosa nn 00 30 tab, 0 Refill(s) lisinopril Yes 5 mg = 1 Mem oria 5 mg oral 3-08 tab, PO, l tablet 16:02: Daily, # [place] 00 30 tab, 0 Refill(s) pravastatin Yes 40 mg = 1 M emoria 40 mg oral 3-08 tab, PO, l tablet 16:02: Bedtime, # Rosa nn 00 30 tab, 0 Refill(s) metFORMIN Yes 500 mg = 1 Me moria 500 mg oral 3-08 tab, PO, l tablet 16:02: BID, # 30 Kvng n 00 tab, 0 Refill(s) gabapentin 2014- Yes 100 mg = 1 M emoria 100 mg oral 3-08 cap, PO, l capsule 12:07: BID, 0 [place] 00 Refill(s) gabapentin 2014-0 Yes 100 mg = 1 M emoria 100 mg oral 3-08 cap, PO, l capsule 12:07: BID, 0 Prasanna 00 Refill(s) Pravastatin Pravastatin Yes Lorenza 1 tablet Common Sodium Sodium [facility] Glimepiride Glimepiride Yes Lorenza 1 tablet Common Omar with Spirit breakfast - [facility] or the [facility] first [facility] meal of Medical the day [place] Cinnamon Cinnamon Yes Lorenza not Common [place] defined Spirit - [facility] Antihistami Antihistami Yes Lorenza not Common ne ne Omra defined Spirit - [facility] Eye Health Eye Health Yes Lorenza not Co mmon [place] defined Spirit - [facility] Lisinopril Lisinopril Yes Lorenza 1 tablet Common [place] [facility] Gabapentin Gabapentin Yes Lorenza 1 capsule Common Omar before Spirit bedtime - [facility] Lisinopril Lisinopril No 1{table QD Lisinopril 5 MG 5 MG t} 5 MG Tylenol Tylenol No Tylenol Potassium Potassium No Potassium Magnesium Magnesium No Magnesium Eye Health Eye Health No Eye Health - - - Cinnamon Cinnamon No Cinnamon 500 MG 500 MG 500 MG Gabapentin Gabapentin No 1{capsu QD Gabapentin 300 MG 300 MG le_befo 300 MG re_bedt sanjuanita} DULoxetine DULoxetine No DULoxetine HCl HCl HCl Antihistami Antihistami No Antihistam ne ne ine Glimepiride Glimepiride No 1{table QD Glimepirid 1 MG 1 MG t_with_ e [address]_or_t he_firs t_main_ meal_of _the_da y} Donepezil Donepezil No Donepezil HCl HCl HCl Pravastatin Pravastatin No 1{table QD Pravastati Sodium 40 Sodium 40 t} n Sodium MG MG 40 MG Potassium Potassium No Potassium Eye Health Eye Health No Eye Health - - - Aspirin Aspirin No Aspirin Cinnamon Cinnamon No Cinnamon 500 MG 500 MG 500 MG Antihistami Antihistami No Antihistam ne ne ine Gabapentin Gabapentin No 1{capsu QD Gabapentin 300 MG 300 MG le_befo 300 MG re_bedt sanjuanita} Pravastatin Pravastatin No 1{table QD Pravastati Sodium 40 Sodium 40 t} n Sodium MG MG 40 MG DULoxetine DULoxetine No DULoxetine HCl HCl HCl Lisinopril Lisinopril No 1{table QD Lisinopril 5 MG 5 MG t} 5 MG Magnesium Magnesium No Magnesium Glimepiride Glimepiride No 1{table QD Glimepirid 1 MG 1 MG t_with_ e [address]_or_t he_firs t_main_ meal_of _the_da y} Tylenol Tylenol No Tylenol Donepezil Donepezil No Donepezil HCl HCl HCl Donepezil Donepezil No Donepezil HCl HCl HCl Tylenol Tylenol No Tylenol Aspirin Aspirin No Aspirin Cinnamon Cinnamon No Cinnamon 500 MG 500 MG 500 MG Eye Health Eye Health No Eye Health - - - Lisinopril Lisinopril No 1{table QD Lisinopril 5 MG 5 MG t} 5 MG DULoxetine DULoxetine No DULoxetine HCl HCl HCl Antihistami Antihistami No Antihistam ne ne ine Gabapentin Gabapentin No 1{capsu QD Gabapentin 300 MG 300 MG le_befo 300 MG re_bedt sanjuanita} Magnesium Magnesium No Magnesium Glimepiride Glimepiride No 1{table QD Glimepirid 1 MG 1 MG t_with_ e [address]_or_t he_firs t_main_ meal_of _the_da y} Pravastatin Pravastatin No 1{table QD Pravastati Sodium 40 Sodium 40 t} n Sodium MG MG 40 MG Potassium Potassium No Potassium Vital Signs Vital Name Observation Time Observation Value Comments Source height 2022-08-29 10:00:00 66 [in_i] [facility] weight 2022-08-29 10:00:00 220 [lb_av] [facility] temperature 2022-08-29 10:00:00 98.3 [degF] [facility] bmi 2022-08-29 10:00:00 35.51 kg/m2 [facility] blood pressure 2022-08-29 10:00:00 129 mm[Hg] [facility] - systolic [facility] blood pressure 2022-08-29 10:00:00 76 mm[Hg] [facility] - diastolic [facility] height 2022-07-25 14:30:00 66 [in_i] Common [facility] weight 2022-07-25 14:30:00 220 [lb_av] [facility] temperature 2022-07-25 14:30:00 97.2 [degF] [facility] bmi 2022-07-25 14:30:00 35.51 kg/m2 Common [facility] blood pressure 2022-07-25 14:30:00 137 mm[Hg] [facility] - systolic [facility] blood pressure 2022-07-25 14:30:00 86 mm[Hg] [facility] - diastolic [facility] height 2022-07-11 14:00:00 66 [in_i] [facility] weight 2022-07-11 14:00:00 220 [lb_av] [facility] temperature 2022-07-11 14:00:00 97.6 [degF] [facility] bmi 2022-07-11 14:00:00 35.51 kg/m2 [facility] blood pressure 2022-07-11 14:00:00 139 mm[Hg] [facility] - systolic [facility] blood pressure 2022-07-11 14:00:00 70 mm[Hg] [facility] - diastolic [facility] Systolic blood 2022-06-05 14:58:00 149 mm[Hg] Univer [facility] of [facility] Diastolic blood 2022-06-05 14:58:00 74 mm[Hg] Unive rsity of [facility] Heart rate 2022-06-05 14:57:00 69 /min [facility] Body temperature 2022-06-05 14:57:[address] [facility] 2022-06-05 14:57:00 18 /min [facility] Body height 2022-06-05 14:57:00 162.6 cm [facility] Body weight 2022-06-05 14:57:00 101.152 kg [facility] BMI 2022-06-05 14:57:00 38.28 kg/m2 [facility] Height 2023-05-30 16:22:00 5 [ft_i] [facility] Weight 2023-05-30 16:22:00 [facility] BMI Calculated 2023-05-30 16:22:00 Memori al [place] Systolic (mm Hg) 2023-05-30 16:22:00 Uriel rial [place] Diastolic (mm Hg) 2023-05-30 16:22:00 Mem orial [place] Heart Rate 2023-05-30 16:22:00 [facility] Systolic (mm Hg) 2023-04-18 15:20:00 Uriel rial [place] Diastolic (mm Hg) 2023-04-18 15:20:00 [facility] Heart Rate 2023-04-18 15:20:00 [facility] Height 2023-04-18 15:20:00 5 [ft_i] [facility] Weight 2023-04-18 15:20:00 [facility] BMI Calculated 2023-04-18 15:20:00 [facility] Systolic (mm Hg) 2023-01-02 16:04:00 Uriel [facility] Diastolic (mm Hg) 2023-01-02 16:04:00 [facility] Heart Rate 2023-01-02 16:04:00 [facility] Height 2023-01-02 16:04:00 5 [ft_i] [facility] Weight 2023-01-02 16:04:00 [facility] BMI Calculated 2023-01-02 16:04:00 [facility] Systolic (mm Hg) 2022-09-04 15:48:00 Uriel [facility] Diastolic (mm Hg) 2022-09-04 15:48:00 [facility] Heart Rate 2022-09-04 15:48:00 [facility] Height 2022-09-04 15:48:00 5 [ft_i] [facility] Weight 2022-09-04 15:48:00 [facility] BMI Calculated 2022-09-04 15:48:00 [facility] Systolic (mm Hg) 2022-07-20 13:24:00 Uriel [facility] Diastolic (mm Hg) 2022-07-20 13:24:00 [facility] Heart Rate 2022-07-20 13:24:00 [facility] Height 2022-07-20 13:24:00 5 [ft_i] [facility] Weight 2022-07-20 13:24:00 [facility] BMI Calculated 2022-07-20 13:24:00 [facility] Systolic (mm Hg) 2022-06-21 15:11:00 [facility] Diastolic (mm Hg) 2022-06-21 15:11:00 [facility] Heart Rate 2022-06-21 15:11:00 [facility] Respitory Rate 2022-06-21 15:11:00 [facility] Height 2022-06-21 15:11:00 162.56 cm [facility] Weight 2022-06-21 15:11:00 [facility] BMI Calculated 2022-06-21 15:11:00 [facility] Diastolic (mm Hg) 2022-05-09 14:38:00 [facility] Heart Rate 2022-05-09 14:38:00 [facility] Respitory Rate 2022-05-09 14:38:00 [facility] Height 2022-05-09 14:38:00 162.56 cm [facility] Weight 2022-05-09 14:38:00 [facility] BMI Calculated 2022-05-09 14:38:00 [facility] Systolic (mm Hg) 2022-05-09 14:38:00 [facility] Systolic (mm Hg) 2021-08-16 15:15:00 [facility] Diastolic (mm Hg) 2021-08-16 15:15:00 [facility] Respitory Rate 2021-08-16 15:15:00 [facility] Height 2021-08-16 15:15:00 162.56 cm [facility] Weight 2021-08-16 15:15:00 [facility] BMI Calculated 2021-08-16 15:15:00 [facility] Systolic (mm Hg) 2021-05-12 16:00:00 [facility] Diastolic (mm Hg) 2021-05-12 16:00:00 [facility] Heart Rate 2021-05-12 16:00:00 [facility] Respitory Rate 2021-05-12 16:00:00 [facility] Height 2021-05-12 16:00:00 162.56 cm [facility] Weight 2021-05-12 16:00:00 [facility] BMI Calculated 2021-05-12 16:00:00 [facility] Systolic (mm Hg) 2021-03-31 15:25:00 [facility] Diastolic (mm Hg) 2021-03-31 15:25:00 [facility] Heart Rate 2021-03-31 15:25:00 [facility] Respitory Rate 2021-03-31 15:25:00 [facility] Height 2021-03-31 15:25:00 162.56 cm [facility] Weight 2021-03-31 15:25:00 [facility] BMI Calculated 2021-03-31 15:25:00 [facility] Systolic (mm Hg) 2021-02-24 18:13:00 [facility] Diastolic (mm Hg) 2021-02-24 18:13:00 [facility] Heart Rate 2021-02-24 18:13:00 [facility] Respitory Rate 2021-02-24 18:13:00 [facility] Height 2021-02-24 18:13:00 162.56 cm [facility] Weight 2021-02-24 18:13:00 [facility] BMI Calculated 2021-02-24 18:13:00 [facility] Procedures Procedure Date / Time Performing Clinician Source Performed POCT URINALYSIS W/O 2022-06-05 15:13:00 Aliya Rosa [facility] SPECIFIC GRAVITY [facility] Herniorrhaphy 2001-09-17 00:00:00 Blade young Hysterectomy 2001-09-17 00:00:00 Blade young Bilateral tubal ligation 2000-09-17 00:00:00 [facility] orial [facility] Procedure<sup>1</sup> [facility] Hanny ermrusty Plan of Care Planned Activity Planned Date Details Comments Source Future Scheduled 2023-07-12 Screening for [facility] Test 05:12:57 malignant neoplasm of colon (procedure) [code = 237243657] Future Scheduled 2023-07-12 Screening for [facility] Test 05:12:57 malignant neoplasm of colon (procedure) [code = 739251642] Future Scheduled 2023-07-12 Screening for [facility] Test 05:12:57 malignant neoplasm of colon (procedure) [code = 480209209] Future Scheduled 2023-07-12 COVID-19 VACCINE (#1) [facility] Test 05:12:57 [code = COVID-19 VACCINE (#1)] Future Scheduled 2023-07-12 BREAST CANCER [facility] Test 05:12:57 SCREENING [code = BREAST CANCER SCREENING] Future Scheduled 2023-07-12 Screening for [facility] Test 05:12:57 malignant neoplasm of colon (procedure) [code = 574212193] Future Scheduled 2023-07-12 Screening for [facility] Test 05:12:57 malignant neoplasm of colon (procedure) [code = 157491841] Future Scheduled 2023-07-12 SHINGLES VACCINES (1 [facility] Test 05:12:57 of 2) [code = SHINGLES VACCINES (1 of 2)] Future Scheduled 2023-07-12 65+ [facility] 05:12:57 VACCINE (1 - PCV) [code = 65+ PNEUMOCOCCAL VACCINE (1 - PCV)] Future Scheduled 2023-07-12 INFLUENZA VACCINE (#1) [facility] Test 05:12:57 [code = INFLUENZA VACCINE (#1)] Future Scheduled 2022-12-21 COVID-19 VACCINE (#1) [facility] Test 20:28:51 [code = COVID-19 VACCINE (#1)] Future Scheduled 2022-12-21 BREAST CANCER [facility] Test 20:28:51 SCREENING [code = BREAST CANCER SCREENING] Future Scheduled 2022-12-21 COLONOSCOPY SCREENING [facility] Test 20:28:51 [code = COLONOSCOPY SCREENING] Future Scheduled 2022-12-21 SHINGLES VACCINES (1 [facility] Test 20:28:51 of 2) [code = SHINGLES VACCINES (1 of 2)] Future Scheduled 2022-12-21 65+ [facility] 20:28:51 VACCINE (1 - PCV) [code = 65+ PNEUMOCOCCAL VACCINE (1 - PCV)] Future Scheduled 2022-12-21 INFLUENZA VACCINE [facility] Test 20:28:51 [code = INFLUENZA VACCINE] Future Scheduled 2022-05-17 COVID-19 VACCINE (#1) [facility] Test 10:48:19 [code = COVID-19 VACCINE (#1)] Future Scheduled 2022-05-17 BREAST CANCER [facility] Test 10:48:19 SCREENING [code = BREAST CANCER SCREENING] Future Scheduled 2022-05-17 COLONOSCOPY SCREENING [facility] Test 10:48:19 [code = COLONOSCOPY SCREENING] Future Scheduled 2022-05-17 SHINGLES VACCINES (1 [facility] Test 10:48:19 of 2) [code = SHINGLES VACCINES (1 of 2)] Future Scheduled 2022-05-17 65+ [facility]AL [facility] Test 10:48:19 VACCINE (1 - PCV) [code = 65+ PNEUMOCOCCAL VACCINE (1 - PCV)] Future Scheduled 2022-05-17 INFLUENZA VACCINE [facility] Test 10:48:19 [code = INFLUENZA VACCINE] Future Scheduled 2022-05-17 HEPATITIS B VACCINES [facility] Test 10:48:19 (1 of 3 - 3-dose series) [code = HEPATITIS B VACCINES (1 of 3 - 3-dose series)] Encounters Start End Encounter Admission Attending Care Care Encounter Source Date/Time Date/Time Type Type Clinicians Facility Department ID 2022-07-20 Outpatient Kattegummul STLMLC ST[facility] [id number] - Common 11:01:01 a, Stevie [id number] [facility] 2022-07-12 Outpatient Kattegummul STLMLC [facility] [id number] - Common 08:16:01 a, Stevie [facility] 2022-07-11 Outpatient Kattegummul STLMLC [facility] [id number] Common 09:29:00 a, Stevie [id number] [facility] 2022-07-04 Outpatient Kattegummul STLMLC ST[facility] [id number] - Common 11:48:00 a, Stevie [id number] [facility] 2023-07-05 2023-07-05 Outpatient MICHAEL RODRIGUEZ [id number] Memoria 09:00:00 09:00:00 Rob Mims 2023-05-30 2023-05-31 Outpatient MHIE MNA [id number] Memoria 16:45:00 04:59:59 Neurology 14 lluvia Mims 2023-05-30 2023-05-30 Outpatient ALFONSO FortuneSCHER MHMISCHER [id number] 11:45:00 23:59:59 Tom 14 Tong 2023-05-29 2023-05-30 Between MHIE MNA [id number] Memoria 23:01:00 23:01:00 Visit Neurology 03 l Sima Mims 2023-05-29 2023-05-30 Outpatient MHMISCHER MHMISCHER [id number] 18:01:00 18:01:00 03 2023-05-30 2023-05-30 Outpatient MHIE MHIE [id number] Memoria 11:45:00 11:45:00 14 lluvia Mims 2023-04-24 2023-04-25 Between MHIE MNA [id number] Memoria 18:00:04 18:00:04 Visit Neurology 02 l Sima Mims 2023-04-24 2023-04-25 Outpatient MHMISCHER MHMISCHER [id number] 13:00:04 13:00:04 02 2023-04-18 2023-04-19 Outpatient MHIE MNA [id number] Memoria 15:45:00 04:59:59 Neurology 13 lluvia Mims 2023-04-18 2023-04-18 Outpatient ALFONSO FortuneSCHER FAITHMISCHER [id number] 10:45:00 23:59:59 Tom 13 Tong 2023-04-18 2023-04-18 Outpatient MHIE MHIE [id number] Memoria 10:45:00 10:45:00 13 lluvia CastroPrasanna 2023-04-03 2023-04-03 Ambulatory MHIE MNA [id number] Memoria 15:15:00 15:15:00 Pre-Reg Neurology 12 lluvia Castroann 2023-04-03 2023-04-03 Outpatient MHIE MHIE [id number] Memoria 10:15:00 10:15:00 12 lluvia Prasanna 2023-04-03 2023-04-03 Outpatient ALFONSO FortuneSCHER MHMISCHER [id number] 10:15:00 10:15:00 Tom 12 Tong 2023-01-02 2023-01-03 Outpatient MHIE MNA [id number] Memoria 16:15:00 04:59:59 Neurology 10 lluvia Mims 2023-01-02 2023-01-02 Outpatient ALFONSO FortuneSCHER MHMISCHER [id number] 11:15:00 23:59:59 Tom 10 oTng 2023-01-02 2023-01-02 Outpatient MHIE MHIE [id number] Memoria 11:15:00 11:15:00 10 lluvia Mims 2023-01-02 2023-01-02 Outpatient MHIE MHIE [id number] Memoria 11:15:00 11:15:00 10 lluvia Mims 2022-09-04 2022-09-05 Outpatient MHIE MNA [id number] Memoria 16:00:00 05:59:59 Neurology 09 l Sima Mims 2022-09-04 2022-09-05 Outpatient MHIE MNA [id number] Memoria 16:00:00 05:59:59 Neurology 09 l Sima Mims 2022-09-04 2022-09-04 Outpatient ALFONSO FortuneSCHER MHMISCHER [id number] 10:00:00 23:59:59 Tom 09 Tong 2022-09-04 2022-09-04 Outpatient MHIE MHIE [id number] Memoria 10:00:00 10:00:00 09 lluvia Mims 2022-08-29 2022-08-29 OFFICE STLMLC STLMLC [id number] Co mmon 00:00:00 00:00:00 VISIT [facility] ESTAB PT - [facility] LEVEL 4 [facility] 2022-07-25 2022-07-25 OFFICE STLMLC STLMLC [id number] Co mmon 00:00:00 00:00:00 VISIT [facility] ESTAB PT - [facility]I LEVEL 4 [facility] 2022-07-20 2022-07-21 Outpatient nullFlavo MNA [id number] Memoria 13:15:00 04:59:59 r Neurology 08 l Sima Castroann 2022-07-20 2022-07-21 Outpatient nullFlavo MNA [id number] Memoria 13:15:00 04:59:59 r Neurology 08 l Sima Mims 2022-07-20 2022-07-20 Outpatient GISELE Fortune SOCORROSCHER [id number] 08:15:00 23:59:59 Tom 08 Tong 2022-07-20 2022-07-20 Outpatient MHIE MHIE [id number] Memoria 08:15:00 08:15:00 08 lluvia Mims 2022-07-11 2022-07-11 OFFICE STLMLC STLMLC [id number] Co mmon 00:00:00 00:00:00 VISIT NEW [facility] it PT LEVEL 4 - [facility] 2022-06-21 2022-06-22 Outpatient nullFlavo MNA [id number] Memoria 15:00:00 04:59:59 r Neurology 07 l [place] [facility] 2022-06-21 2022-06-22 Outpatient nullFlavo MNA [id number] Memoria 15:00:00 04:59:59 r Neurology 07 l Sima Mims 2022-06-21 2022-06-21 Outpatient GISELE Fortune SOCORROSCHER [id number] 10:00:00 23:59:59 Tom 07 Tong 2022-06-21 2022-06-21 Outpatient MHIE MHIE [id number] Memoria 10:00:00 10:00:00 07 lluvia Prasanna 2022-06-05 2022-06-05 [facility] [id number] Univers 10:00:00 10:57:24 ALIYA medel of [facility] 2022-06-05 2022-06-05 [facility] [id number] Univers 10:00:00 10:57:24 Visit Aliya GALVIN [id number] i ty [facility] 4.2.7.2.686 Marty TERESA [id number] Mn dical [address] 2022-06-05 2022-06-05 Orders Doctor TURNER [id number] Univers 00:00:00 00:00:00 Only Unassigned, ERIKA 350.1.13.10 ity of [place] [facility] 4.2.7.2.686 Maco [id number] [facility] [address] 2022-05-30 2022-05-30 Outpatient R AQUILESKELSEY JOSÉ [facility] B [id number] Univers 10:45:00 11:48:29 YECENIAKELSEY CHAHAL trena [facility] 2022-05-30 2022-05-30 Office MONIKA Valentine DEVERS [id number] [facility] 10:45:00 11:48:29 Visit Kelsey ROSA [id number] it y of [facility] [id number] [facility] [id number] [facility] [address] 2022-05-30 2022-05-30 Outpatient R AQUILESKELSEY JOSÉ [facility] B [id number] Univers 10:45:00 11:48:29 ANJUMKELSEY TIDWELL [facility] 2022-05-30 2022-05-30 Outpatient R AQUILESKELSEY JOSÉ [facility] B [id number] Univers 10:45:00 10:45:00 AQUILESKELSEY JOSÉ [facility] 2022-05-09 2022-05-10 Outpatient nullFlavo MNA [id number] Memoria 14:30:00 04:59:59 r Neurology 06 l Sima Mims 2022-05-09 2022-05-10 Outpatient nullFlavo MNA [id number] Memoria 14:30:00 04:59:59 r Neurology 06 lluvia Mims 2022-05-09 2022-05-09 Outpatient GISELE Fortune MISCHER [id number] 09:30:00 23:59:59 Tom Kathleen Fortune 2022-05-09 2022-05-09 Outpatient MHIE MHIE [id number] Memoria 09:30:00 09:30:00 06 lluvia Mims 2021-08-16 2021-08-17 Outpatient nullFlavo MNA [id number] Memoria 15:15:00 05:59:59 r Neurology 05 l Sima Mims 2021-08-16 2021-08-17 Outpatient nullFlavo MNA [id number] Memoria 15:15:00 05:59:59 r Neurology 05 l Sima Mims 2021-08-16 2021-08-16 [facility] [id number] 09:15:00 23:59:59 Tom 05 Tong 2021-08-16 2021-08-16 Outpatient MHIE MHIE [id number] Memoria 09:15:00 09:15:00 05 lluvia Mims 2021-05-12 2021-05-13 Outpatient nullFlavo MNA [id number] Memoria 15:45:00 04:59:59 r Neurology 04 l Sima Mims 2021-05-12 2021-05-13 Outpatient nullFlavo MNA [id number] Memoria 15:45:00 04:59:59 r Neurology 04 l Sima Mims 2021-05-12 2021-05-12 [facility] [id number] 10:45:00 23:59:59 Tom 04 Tong 2021-05-12 2021-05-12 Outpatient MHIE MHIE [id number] Memoria 10:45:00 10:45:00 04 lluvia Mims 2021-03-31 2021-04-01 Outpatient nullFlavo MNA [id number] Memoria 15:15:00 04:59:59 r Neurology 03 lluvia Mims 2021-03-31 2021-04-01 Outpatient nullFlavo MNA [id number] Memoria 15:15:00 04:59:59 r Neurology 03 lluvia Mims 2021-03-31 2021-03-31 [facility] [id number] 10:15:00 23:59:59 Tom 03 Tong 2021-03-31 2021-03-31 Outpatient MHIE MHIE [id number] Memoria 10:15:00 10:15:00 03 lluvia Mims 2021-03-11 2021-03-12 Outpatient nullFlavo MNA [id number] Memoria 18:00:00 04:59:59 r Neurology 02 l Sima Mims 2021-03-11 2021-03-12 Outpatient nullFlavo MNA [id number] Memoria 18:00:00 04:59:59 r Neurology 02 l Sima Mims 2021-03-11 2021-03-11 Outpatient Devika MHMISCHER MHMISCHER [id number] 13:00:00 23:59:59 Tom 02 Tong 2021-03-11 2021-03-11 Outpatient MHIE MHIE [id number] Memoria 13:00:00 13:00:00 02 lluvia Mims 2021-02-24 2021-02-25 Outpatient nullFlavo MNA [id number] Memoria 18:15:00 04:59:59 r Neurology 01 l Sima Mims 2021-02-24 2021-02-25 Outpatient nullFlavo MNA [id number] Memoria 18:15:00 04:59:59 r Neurology 01 l Sima Mims 2021-02-24 2021-02-24 Outpatient DevikaFAITHMISCHER MHMISCHER [id number] 13:15:00 23:59:59 Tom Tong 2021-02-24 2021-02-24 Outpatient MHIE MHIE [id number] Memoria 13:15:00 13:15:00 01 llvuia Mims 2020-11-30 2020-11-30 Outpatient Nakita SIERRA [facility] [id number] Univers 12:30:00 12:30:00 [facility] 2020-11-09 2020-11-09 Outpatient Nakita RIGO [facility] [id number] Univers 12:50:00 12:50:00 [facility] 2020-06-02 2020-06-02 Outpatient [facility] [id number] Common 10:00:00 10:00:00 t Specialty/[facility] Special[facility] rology - [facility] 2019-12-01 2019-12-01 Outpatient [facility] [id number] Common 09:00:00 09:00:00 t Specialty/U Sp [facility] Specialty rology - [facility] /[facility] 2019-05-26 2019-05-26 Out[facility] [id number] Common 09:00:00 09:00:00 t Specialty/U Sp [facility] Specialty rology - [facility] /[facility] 2019-05-13 2019-05-13 [id number] Common 10:00:00 10:00:00 t Specialty/U Sp [facility] Specialty rology - [facility] /[facility] 2019-02-27 2019-02-27 [facility]patient [facility] [id number] Common 09:30:00 09:30:00 t Specialty/U Sp chele Specialty rology - [facility] /[facility] 2018-10-31 2018-10-31 [facility]patient [facility] [id number] Common 09:30:00 09:30:00 t Specialty/U Sp che[facility] Specialty rology - [facility] 2018-05-01 2018-05-01 Outpatient [facility] [id number] Common 10:00:00 10:00:00 t Specialty/U Sp che[facility] Specialty rology - [facility] 2018-03-21 2018-03-21 [facility]patient [facility] [id number] Common 10:00:00 10:00:00 t Specialty/U Sp chele Specialty rology - [facility] /[facility] 2015-05-31 2015-05-31 [id number] [facility] 13:30:00 13:30:00 00 lluvia Mims 2015-05-31 2015-05-31 [id number] 13:30[facility]00 13:30:00 00 lluvia Mims Results Test Description Test Time Test Comments Results Result Comments Source POCT URINALYSIS W/O SPECIFIC GRAVITY 2022-06-05 15:14:00 Test Item Value Reference Range Interpretation Comme nts POCT PH U (test code = 3254) 5 mg/dl 5-8 POCT U LEUK EST (test code = trace Negative - Negative 3263) POCT U NIT (test code = 3262) negative Negative - Negative POCT U PROT (test code = 3259) negative Negative - Negative POCT U GLU (test code = 3256) negative Negative - Negative POCT U KETONE (test code = negative Negative - Negative 3258) POCT U BLD (test code = 3257) SAGRARIO (test code = SAGRARIO) Per order PVR by bladder scan = ?0ml. Results reported to provider. [facility]
[2023-07-13 07:52] LABS: Absolute Lymphocytes (CBC) 1.1 K/uL (0.7-4.9); Hematocrit 34.9 % (36.0-45.0); Lymphocytes % 17.4 % (15.3-44.8); MCV 88.1 fL (80-100); MPV 7.3 fL (7.6-11.3); Platelets 139 thou/uL (152-406); RBC Red Blood Cell Count 3.96 M/uL (3.86-4.86)
[2023-07-13 08:10] LABS: Specific Gravity 1.015 (1.005-1.030); Urine Bacteria <20 /HPF (<20); Urine Bilirubin NEGATIVE (Negative); Urine Blood Negative (Negative); Urine Clarity Turbid (Clear); Urine Color Light-Yellow (Yellow); Urine Glucose NEGATIVE (Negative); Urine Mucus Slight /HPF (None Seen); Urine Protein NEGATIVE (Negative); Urine Urobilinogen Normal (Normal); Urine pH 6.5 (5.0-7.0)
[2023-07-13] MEDS ORDERED: ONDANSETRON 4 MG/2 ML VIAL ONE (08:10)
[2023-07-13] MEDS ORDERED: MORPHINE 4 MG/ML SYR ONE (08:10)
[2023-07-13 08:18] LABS: Albumin 3.6 g/dL (3.4-5.0); Bilirubin Total 0.8 mg/dL (0.2-1.0); Potassium 3.8 mEq/L (3.5-5.1); Protein, Total 7.1 g/dL (6.4-8.2)
--- NOTE | 2023-07-13 08:59 | RAD REPORT ---
EXAM DESCRIPTION: CTAbdomen Pelvis W Contrast - 07/13/2023 8:32 am CLINICAL HISTORY: Abdominal pain. ABD PAIN COMPARISON: No comparisons TECHNIQUE: Biphasic CT imaging of the abdomen and pelvis was performed with 100 ml non-ionic IV cont rast. All CT scans are performed using dose optimization technique as appropriate and may include automated exposure control or mA/KV adjustment according to patient size. FINDINGS: The lung bases are clear.Small hiatal hernia. The liver, spleen, pancreas, adrenal glands are within normal limits. There is a large 12 mm stone at the level of the right UPJ resulting in moderate right hydronephrosis. There is an additional large 16 mm stone in the inferior calyx of the left kidney. 23 mm benign cyst lateral left kidney. No bowel obstruction, free air, free fluid or abscess. Postsurgical changes in the small bowel noted along with anterior umbilical hernia mesh present. The appendix is not identified as a discrete struc ture, however, no secondary findings of appendicitis are identified. No evidence of significant lym phadenopathy. Mild lower lumbar degenerative changes. IMPRESSION: 12 mm stone at the level the right UPJ resulting in moderate right hydronephrosis. Large 16 mm stone inferior calyx left kidney.
--- NOTE | 2023-07-13 09:45 | EDPHYS ---
Physician Documentation [facility] Name: Laury Alfred Age: 77 yrs Sex: Female : 1945 Arrival Date: 07/13/2023 Time: 07:02 Bed 14 Private MD: ED Physician Danny Gordon HPI: 07/13 08:19 This 77 yrs old Female presents to ER via Ambulatory with complaints of Abdominal Pain. rt 08:19 Patient presents to the ED with right-sided abdominal pain starting 4 days ago. States rt that the pain is slowly worsening, she did have no pain yesterday states the pain worsened today. Denies nausea, vomiting. Denies other acute complaints at this time, symptoms are moderate severity, radiates to the right flank, no other aggravating or elevating factors.. Historical: - Allergies: 07:24 No Known Drug Allergies; hb - Home Meds: 07:24 Benadryl Oral [Active]; Benadryl Oral [Active]; Cinnamon Oral [Active]; Cramp Defense hb magnesium [Active]; gabapentin 300 mg Oral tab 1 cap twice a day [Active]; glimepiride 1 mg Oral tab 1 tab once daily [Active]; Keto ACV weight loss [Active]; lisinopril 5 mg Oral tab 1 tab once daily [Active]; pravastatin 40 mg Oral tab 1 tab once daily [Active]; Vision Shield eye vitamins [Active]; - PMHx: 07:24 High Cholesterol; Hypertension; Diabetes - NIDDM; neuropathy; spinal stenosis; hb Non-Hodgkins Lymphoma; Kidney Stones (hysterectomy); - PSHx: 07:24 hysterectomy; hb - Immunization history:: Adult Immunizations up to date. - Social history:: Smoking status: Patient denies any tobacco usage or history of. - Family history:: not pertinent. ROS: 08:19 Constitutional: Negative for fever, chills, and weight loss, Cardiovascular: Negative rt for chest pain, palpitations, and edema, Respiratory: Negative for shortness of breath, cough, wheezing, and pleuritic chest pain, MS/Extremity: Negative for injury and deformity, Skin: Negative for injury, rash, and discoloration, Neuro: Negative for headache, weakness, numbness, tingling, and seizure, Psych: Negative for depression, anxiety, suicide ideation, homicidal ideation, and hallucinations, 08:19 Abdomen/GI: Positive for abdominal pain, Negative for nausea, vomiting, and diarrhea, 08:19 Back: Positive for flank pain, Negative for pain at rest, Exam: 08:19 Constitutional: This is a well developed, well nourished patient who is awake, alert, rt and in no acute distress. Head/Face: Normocephalic, atraumatic. Chest/axilla: Normal chest wall appearance and motion. Nontender with no deformity. No lesions are appreciated. Cardiovascular: Regular rate and rhythm with a normal S1 and S2. No gallops, murmurs, or rubs. Normal PMI, no JVD. No pulse deficits. Respiratory: Lungs have equal breath sounds bilaterally, clear to auscultation and percussion. No rales, rhonchi or wheezes noted. No increased work of breathing, no retractions or nasal flaring. Skin: Warm, dry with normal turgor. Normal color with no rashes, no lesions, and no evidence of cellulitis. MS/ Extremity: Pulses equal, no cyanosis. Neurovascular intact. Full, normal range of motion. Neuro: Awake and alert, GCS 15, oriented to person, place, time, and situation. Cranial nerves II-XII grossly intact. Motor strength 5/5 in all extremities. Sensory grossly intact. Cerebellar exam normal. Normal gait. Psych: Awake, alert, with orientation to person, place and time. Behavior, mood, and affect are within normal limits. 08:19 Abdomen/GI: Tenderness to the right upper, right lower quadrants, no rebound, guarding, distention, Vital Signs: 07:22 BP 157 / 62; Pulse 55; Resp 16; Temp 97.7(TE); Pulse Ox 100% on R/A; Weight 85.28 kg; hb Height 5 ft. 4 in. ; Pain 8/10; 09:40 BP 146 / 65; Pulse 56; Resp 16 S; Pulse Ox 98% on R/A; kc6 07:22 Body Mass Index 32.27 (85.28 kg, 162.56 cm) hb 07:22 Pain Scale: Adult hb MDM: 07:32 Patient medically screened. rt 09:45 Differential diagnosis: Appendicitis, cholecystitis, kidney stone, pyelonephritis, rt bowel obstruction. Data reviewed: vital signs, nurses notes, lab test result(s), EKG, radiologic studies. Consideration of Admission/Observation Escalation of care including admission/observation considered. No evidence of infected stone, creatinine is normal, emergent lithotripsy not indicated. Independent interpretation of the following test(s) in the Emergency Department CT Scan: My interpretation is Kidney stone seen on interpretation of CT scan images. Care significantly affected by the following chronic conditions: Nephrolithiasis. Response to treatment: the patient's symptoms have markedly improved after treatment. 07/13 07:41 Order name: CBC with Diff; Complete Time: 08:19 rt 07/13 07:41 Order name: CMP; Complete Time: 08:19 rt 07/13 07:41 Order name: Lipase; Complete Time: 08:19 rt 07/13 07:41 Order name: Urinalysis w/ reflexes; Complete Time: 08:19 rt 07/13 07:41 Order name: CT Abd/Pelvis - IV Contrast Only; Complete Time: 09:08 rt 07/13 07:41 Order name: IV Saline Lock; Complete Time: 07:41 rt 07/13 07:41 Order name: Labs collected and sent; Complete Time: 07:47 rt Administered Medications: 08:03 Drug: Ondansetron IVP 4 mg IVP once; over 2 minutes Route: IVP; Site: right antecubital;[facility] 09:40 Follow up: Response: No adverse reaction; Nausea is decreased 6 08:03 Drug: morphine IVP or IV 4 mg IVP once over 4 mins Route: IVP; Infused Over: 4 mins; kc6 Site: right antecubital; 09:40 Follow up: Response: No adverse reaction; Pain is decreased; RASS: Drowsy (-1) kc6 Disposition Summary: 07/13/23 09:44 Discharge Ordered Notes: Location: Home rt Problem: new rt Symptoms: have improved rt Condition: Stable rt Diagnosis - Calculus of ureter rt Followup: rt - With: Nico Menjivar MD - When: 2 - 3 days - Reason: Discharge Instructions: - Discharge Summary Sheet rt - Kidney Stones rt Forms: - Medication Reconciliation Form rt - Thank You Letter rt - Antibiotic Education rt - Prescription Opioid Use rt - Patient Portal Instructions rt - Leadership Thank You Letter rt Signatures: Dispatcher [employer] Nilam Epperson RN RN Radha Dacosta RN RN kc6 Danny Gordon MD MD rt Corrections: (The following items were deleted from the chart) 07:24 Home Meds: eye vitamins; hb hb 07:24 PMHx: Non-Hodgkins Lymphona; hb hb
--- NOTE | 2023-07-13 09:45 | ER ---
Nurse's Notes [facility] Name: Laury Alfred Age: 77 yrs Sex: Female : 1945 Arrival Date: 07/13/2023 Time: 07:02 Bed 14 Private MD: Diagnosis: Calculus of ureter Presentation: 07/13 07:22 Chief complaint: Worsening right sided abdominal pain x 4 days. Denies N/V/D/fever. hb Coronavirus screen: At this time, the client does not indicate any symptoms associated with coronavirus-19. Ebola Screen: No symptoms or risks identified at this time. Initial Sepsis Screen: Does the patient meet any 2 criteria? No. Patient's initial sepsis screen is negative. Does the patient have a suspected source of infection? No. Patient's initial sepsis screen is negative. Risk Assessment: Do you want to hurt yourself or someone else? Patient reports no desire to harm self or others. Onset of symptoms was July 10, 2023. 07:22 Method Of Arrival: Ambulatory hb 07:22 Acuity: SUKH 3 hb Historical: - Allergies: 07:24 No Known Drug Allergies; hb - Home Meds: 07:24 Benadryl Oral [Active]; Benadryl Oral [Active]; Cinnamon Oral [Active]; Cramp Defense hb magnesium [Active]; gabapentin 300 mg Oral tab 1 cap twice a day [Active]; glimepiride 1 mg Oral tab 1 tab once daily [Active]; Keto ACV weight loss [Active]; lisinopril 5 mg Oral tab 1 tab once daily [Active]; pravastatin 40 mg Oral tab 1 tab once daily [Active]; Vision Shield eye vitamins [Active]; - PMHx: 07:24 High Cholesterol; Hypertension; Diabetes - NIDDM; neuropathy; spinal stenosis; hb Non-Hodgkins Lymphoma; Kidney Stones (hysterectomy); - PSHx: 07:24 hysterectomy; hb - Immunization history:: Adult Immunizations up to date. - Social history:: Smoking status: Patient denies any tobacco usage or history of. - Family history:: not pertinent. Screenin:20 [facility] ED Fall Risk Assessment (Adult) History of falling in the last 3 months, kc6 including since admission No falls in past 3 months (0 pts) Confusion or Disorientation No (0 pts) Intoxicated or Sedated No (0 pts) Impaired Gait No (0 pts) Mobility Assist Device Used No (0 pt) Altered Elimination No (0 pt) Score/Fall Risk Level 0 - 2 = Low Risk. Abuse screen: Denies threats or abuse. Denies injuries from another. Nutritional screening: No deficits noted. Tuberculosis screening: No symptoms or risk factors identified. Assessment: 07:30 General: Appears in no apparent distress. uncomfortable, Behavior is calm, cooperative, kc6 appropriate for age. Pain: Complains of pain in right upper quadrant and right lower quadrant Pain does not radiate. Pain currently is 8 out of 10 on a pain scale. Neuro: Level of Consciousness is awake, alert, obeys commands, Oriented to person, place, time, situation, Appropriate for age. Cardiovascular: Capillary refill < 3 seconds. Respiratory: Airway is patent Trachea midline Respiratory effort is even, unlabored, Respiratory pattern is regular, symmetrical. GI: Abdomen is flat, non-distended, Bowel sounds present X 4 quads. Abd is soft X 4 quads Patient currently denies diarrhea, nausea, vomiting. : No signs and/or symptoms were reported regarding the genitourinary system. EENT: No signs and/or symptoms were reported regarding the EENT system. Derm: No signs and/or symptoms reported regarding the dermatologic system. Skin is intact, is healthy with good turgor, Skin is pink, warm \T\ dry. Musculoskeletal: No signs and/or symptoms reported regarding the musculoskeletal system. Circulation, motion, and sensation intact. Capillary refill < 3 seconds, Range of motion: intact in all extremities. 08:28 Reassessment: Patient appears in no apparent distress at this time. No changes from kc6 previously documented assessment. Patient and/or family updated on plan of care and expected duration. Pain level reassessed. Patient is alert, oriented x 3, equal unlabored respirations, skin warm/dry/pink. 09:40 Reassessment: Patient appears in no apparent distress at this time. No changes from kc6 previously documented assessment. Patient and/or family updated on plan of care and expected duration. Pain level reassessed. Patient is alert, oriented x 3, equal unlabored respirations, skin warm/dry/pink. Vital Signs: 07:22 BP 157 / 62; Pulse 55; Resp 16; Temp 97.7(TE); Pulse Ox 100% on R/A; Weight 85.28 kg; hb Height 5 ft. 4 in. ; Pain 8/10; 09:40 BP 146 / 65; Pulse 56; Resp 16 S; Pulse Ox 98% on R/A; kc6 07:22 Body Mass Index 32.27 (85.28 kg, 162.56 cm) hb 07:22 Pain Scale: Adult hb ED Course: 07:14 Patient arrived in ED. ts1 07:18 Radha Dacosta, RN is Primary Nurse. kc6 07:20 Patient has correct armband on for positive identification. Bed in low position. Call kc6 light in reach. Side rails up X 1. Client placed on continuous cardiac and pulse oximetry monitoring. NIBP monitoring applied. 07:23 Triage completed. hb 07:24 Danny Gordon MD is Attending Physician. rt 07:31 Arm band placed on. kc6 07:34 Inserted saline lock: 20 gauge in right antecubital area, using aseptic technique. kc6 Blood collected. Patient maintains SpO2 saturation greater than 95% on room air. 07:47 CBC with Diff Sent. aw1 07:47 CMP Sent. aw1 07:47 Lipase Sent. aw1 08:34 CT Abd/Pelvis - IV Contrast Only In Process Unspecified. EDMS 09:44 Nico Menjivar MD is Referral Physician. rt 10:06 No provider procedures requiring assistance completed. IV discontinued, intact, kc6 bleeding controlled, No redness/swelling at site. Pressure dressing applied. Administered Medications: 08:03 Drug: Ondansetron IVP 4 mg IVP once; over 2 minutes Route: IVP; Site: right antecubital;kc6 09:40 Follow up: Response: No adverse reaction; Nausea is decreased kc6 08:03 Drug: morphine IVP or IV 4 mg IVP once over 4 mins Route: IVP; Infused Over: 4 mins; kc6 Site: right antecubital; 09:40 Follow up: Response: No adverse reaction; Pain is decreased; RASS: Drowsy (-1) kc6 Medication: 10:06 VIS not applicable for this client. kc6 Outcome: 09:44 Discharge ordered by . rt 10:06 Discharged to home ambulatory, kc6 10:06 Condition: stable 10:06 Discharge instructions given to patient, Instructed on discharge instructions, follow up and referral plans. medication usage, Demonstrated understanding of instructions, follow-up care, medications, Prescriptions given X 3, 10:06 Patient left the ED. kc6 Signatures: Dispatcher [employer] EDNilam Blanchard RN RN hb Campbell, Kaitlyn, RN RN kc6 Danny Gordon MD MD rt Rachael Hines PAS PAS ts1 Alpa Maynard aw1 Corrections: (The following items were deleted from the chart) 07:25 07:24 Home Meds: eye vitamins; hb hb 07:25 07:24 PMHx: Non-Hodgkins Lymphona; hb hb
[2023-07-13 10:15] VITALS: TEMP 97.7
[2023-07-13 10:21] VITALS: BP 146/65; O2SAT 98
== END 2023-07-13 10:06 | disposition home or self-care (01) ==
LOC: ER 07:02
DX: N20.1 Calculus of ureter (principal); E78.00 Pure hypercholesterolemia, unspecified; I10 Essential (primary) hypertension; E11.9 Type 2 diabetes mellitus without complications
CPT/HCPCS: 36415; 74177; 80053; 81001; 83690; 85025; 96374; 96375; 99285; J2405

== ENCOUNTER 2024-01-01 07:25 | Day surgery (SDC) | payer OTHER ==
--- NOTE | 2023-12-17 10:41 | RAD REPORT ---
EXAM DESCRIPTION: RAD - Chest Pa And Lat (2 Views) - 12/17/2023 10:35 am CLINICAL HISTORY: pre op for surgery COMPARISON: Abdomen 1 View (KUB) dated 09/13/2023; Chest Pa And Lat (2 Views) dated 08/29/2021; Ches t Single View dated 02/04/2021; Chest Single View dated 10/25/2018 FINDINGS: Lines: None. Lungs: No evidence of edema or pneumonia. Pleural: No significant pleural effusions or pneumothorax. Cardiac: The heart size is within normal limits. Mediastinum: Within normal limits. Bones: No acute fractures. Other: None IMPRESSION: No acute cardiopulmonary disease.
[2023-12-17 11:27] LABS: Absolute Eosinophils 0.1 K/uL (0-0.5); Absolute Lymphocytes (CBC) 1.6 K/uL (0.7-4.9); Absolute Monocytes 0.4 K/uL (0.1-1.3); Absolute Neutrophil 3.8 K/uL (1.8-8.0); Basophils % 0.7 % (0-1.3); Eosinophils % 2.1 % (0-4.4); Hemoglobin 11.8 g/dL (12.0-15.0); Lymphocytes % 27.6 % (15.3-44.8); MCH 30.5 pg (27.0-35.0); MCHC 33.7 g/dL (32.0-36.0); MCV 90.5 fL (80-100); MPV 7.9 fL (7.6-11.3); Neutrophils % 63.6 % (41.7-73.7); Platelets 193 thou/uL (152-406); RBC Red Blood Cell Count 3.86 M/uL (3.86-4.86); Red Cell Distribution Width 13.4 % (12.1-15.2)
[2023-12-17 11:30] LABS: Anion Gap 6.7 mEq/L (5.0-15.0); Potassium 3.7 mEq/L (3.5-5.1)
--- NOTE | 2023-12-18 13:31 | EKG ---
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
[2024-01-01] MEDS ORDERED: LIDOCAINE 1% MPF 5 ML VIAL ONE (07:55)
[2024-01-01] MEDS ORDERED: MIDAZOLAM HCL 2 MG/2 ML INJ ONE (07:56)
[2024-01-01] MEDS ORDERED: propofoL 200 MG/20 ML VIAL IV ONE (07:56)
[2024-01-01] MEDS ORDERED: FENTANYL CITR 100 MCG/2 ML ONE (07:56)
[2024-01-01] MEDS: NA CHLORIDE 0.9% 1,000 ML ONE (08:10)
[2024-01-01] MEDS: DEXTROSE 10%-WATER 500 ML IV ONE (08:25)
[2024-01-01] MEDS: CEFAZOLIN SODIUM 2 GM/VIAL ONE (09:10)
[2024-01-01] MEDS ORDERED: ONDANSETRON 4 MG/2 ML VIAL ONE (09:16)
[2024-01-01] MEDS ORDERED: dexAMETHasone 4 MG/ML VIAL ONE (09:16)
[2024-01-01 09:17] VITALS: O2SAT 100
[2024-01-01] MEDS ORDERED: EPHEDRINE SULF 50 MG/ML VIAL ONE (09:31)
[2024-01-01] MEDS: CODEINE 30MG/APAP 300MG TAB ONE (11:15)
[2024-01-01 12:28] VITALS: BP 128/50; TEMP 97.1
--- NOTE | 2024-01-01 13:44 | OP ---
Surgeon: KELLI OTERO Preoperative Diagnosis: Left partial staghorn renal calculus, 2 stones, total volume 12 x 17 mm. Postoperative Diagnosis: Left partial staghorn renal calculus, 2 stones, total volume 12 x 17 mm. Principal Procedures: 1.Cystoscopy with left ureteral stent placement. 2.Left extracorporeal shockwave lithotripsy/ESWL. Indication For Procedure: Ms. Alfred presented to the Urology Clinic as a recurrent stone former wi th large volume bilateral nephrolithiasis and a partial staghorn on the left side. She was counseled on the need for staged management of her large volume stone burden with subsequent metabolic profile assessment to decrease her risk of future stone forming event. Procedure Note In Detail: The patient was consented in the preoperative holding area before being tr ansferred to the operative suite where general anesthesia was induced. She was given Ancef 2 g IV an timicrobial prophylaxis, and pneumo boots were provided for DVT prophylaxis. She was placed supine o n the shockwave lithotripsy table with a water bath beneath her left flank. The stones were targeted in the left to right and anterior-posterior positions fluoroscopically starting with the superior mo st of the stone burden first and then eventually proceeding with the inferior stone burden after adeq uate fragmentation of the superior stone burden was visible. Shockwave lithotripsy was begun with po wer increased slowly over the course of 500 shocks to a maximum power of 6. The patient did experien ce some ectopy with some PVCs noted, but her heart rate was in the 30s at that point, though it was a sinus rhythm. Anesthesiology was able to raise her heart rate accordingly and we were able to micah nue shockwave lithotripsy successfully and increased the power eventually to 6.5 with about 1500 shoc ks delivered to the superior most component of the stone burden and an additional 1500 shocks deliver ed to the inferior-most component of the stone burden which did appear more dense fluoroscopically. Both did seem to fragment nicely with shockwave lithotripsy, and at a total of 3000 shocks delivered, shockwave lithotripsy was discontinued. Of note, after initiation of shockwave lithotripsy, after a bout 250 shocks, a 2-minute pause was undertaken. During this time, the patient was placed in the fr og-leg position, padded with some pillows beneath the knees, and her genitalia were prepped with Hibi clens before being draped in standard fashion. I then utilized the 22-Micronesian rigid cystoscope to tra verse the urethra and into the bladder with ease. I decompressed the bladder of fluid and urine and utilized a 5-Micronesian ureteral access catheter to gain access into the left ureteral orifice. I then p assed a Sensor wire via the 5-Micronesian ureteral access catheter and observed a coil within the putative upper pole calyx of the kidney fluoroscopically above the targeted stones. I then placed a 6-Micronesian x 24 cm double-J ureteral stent over the wire coiling it within the renal pelvis or upper pole calyx of the kidney as evident fluoroscopically, and cystoscopically. A coil was observed in the bladder. I then decompressed her bladder of fluid and urine and removed the cystoscope. The patient was carmelita en out of the frog-leg position and shockwave lithotripsy was continued after a 2-minute pause. After completion of shockwave lithotripsy, the patient was awakened from general anesthesia, transfer red to a stretcher, and then transferred to the recovery room in good condition. Complications: None. Discharge Disposition: She should follow up within the next 6 to 8 weeks and obtain a KUB about a we ek prior to followup. She will be instructed to strain her urine for any stone burden, and we will d etermine on that followup visit whether the stent can be removed or if additional surgical interventi on at that time is required. Subsequent management of her right nephrolithiasis will be required onc e we are done with the left. HETAL/BHARGAVL Voice ID: [id number] Report ID: [id number]
== END 2024-01-01 11:50 | disposition home or self-care (01) ==
LOC: OR 07:25
PROVIDERS: ATTEND Urology
PROC: 0T778DZ Dilation of Left Ureter with Intraluminal Device, Via Natural or Artificial Opening Endoscopic (ICD-10-PCS; principal; 2024-01-01 08:30)
DX: N20.0 Calculus of kidney (principal); I10 Essential (primary) hypertension; G62.9 Polyneuropathy, unspecified
CPT/HCPCS: 52332; 93005; 87088; 85025; 87086; 80048; 36415; 85610; 82947 ×3; 71046; 50590; J2704; J1100; J2001; J2250; J3010; J2405; J7030

== ENCOUNTER 2024-01-23 11:16 | Emergency (ER) | payer OTHER ==
--- NOTE | 2024-01-23 12:21 | RAD REPORT ---
EXAM DESCRIPTION: RAD - Chest Single View - 01/23/2024 11:59 am CLINICAL HISTORY: weakness COMPARISON: Chest Pa And Lat (2 Views) dated 12/17/2023; Abdomen 1 View (KUB) dated 09/13/2023; Chest Pa And Lat (2 Views) dated 08/29/2021; Chest Single View dated 02/04/2021 FINDINGS: Lines: None. Lungs: No evidence of edema or pneumonia. Pleural: No significant pleural effusions or pneumothorax. Cardiac: The heart size is within normal limits. Mediastinum: Within normal limits. Bones: No acute fractures. Other: None IMPRESSION: No acute cardiopulmonary disease.
--- NOTE | 2024-01-23 12:30 | RAD REPORT ---
EXAM DESCRIPTION: CT - Head Brain Wo Cont - 01/23/2024 12:21 pm CLINICAL HISTORY: weakness, l arm numbness COMPARISON: Head Brain Wo Cont dated 03/29/2023; Head angio dated 02/04/2021 TECHNIQUE: All CT scans are performed using dose optimization technique as appropriate and may inclu de automated exposure control or mA/KV adjustment according to patient size. FINDINGS: No intracranial hemorrhage, hydrocephalus or extra-axial fluid collection.No areas of brai n edema or evidence of midline shift. Mild chronic small vessel ischemic changes noted. The paranasal sinuses and mastoids are clear. The calvarium is intact. IMPRESSION: No acute intracranial abnormality.
[2024-01-23 12:45] LABS: Absolute Basophils 0.1 K/uL (0-0.5); Absolute Eosinophils 0.3 K/uL (0-0.5); Absolute Lymphocytes (CBC) 2.1 K/uL (0.7-4.9); Absolute Monocytes 0.5 K/uL (0.1-1.3); Absolute Neutrophil 4.4 K/uL (1.8-8.0); Basophils % 0.9 % (0-1.3); Eosinophils % 4.1 % (0-4.4); Hematocrit 36.8 % (36.0-45.0); Hemoglobin 12.3 g/dL (12.0-15.0); Lymphocytes % 28.7 % (15.3-44.8); MCHC 33.5 g/dL (32.0-36.0); MCV 89.6 fL (80-100); MPV 7.4 fL (7.6-11.3); Monocytes % 6.6 % (3.3-12.3); Neutrophils % 59.7 % (41.7-73.7); Platelets 195 thou/uL (152-406); RBC Red Blood Cell Count 4.11 M/uL (3.86-4.86); Red Cell Distribution Width 13.8 % (12.1-15.2)
[2024-01-23] MEDS ORDERED: NA CHLORIDE 0.9% 500 ML ONE (12:46)
[2024-01-23 12:58] LABS: Specific Gravity 1.006 (1.005-1.030); Sqamous Epithelial <5 /HPF (None Seen); Urine Bacteria None Seen /HPF (<20); Urine Bilirubin NEGATIVE (Negative); Urine Blood 2+ (Negative); Urine Clarity Turbid (Clear); Urine Color Colorless (Yellow); Urine Culture Reflex Order NOT NEEDED; Urine Glucose NEGATIVE (Negative); Urine Ketones NEGATIVE (Negative); Urine Micro Reflex YN NO BILL MICROSCOPIC; Urine Nitrite NEGATIVE (Negative); Urine Protein NEGATIVE (Negative); Urine Urobilinogen Normal (Normal); Urine WBC <5 /HPF (<5); Urine WBC Clump Rare /HPF (None Seen); Urine pH 6.5 (5.0-7.0)
[2024-01-23 13:05] LABS: Albumin 3.9 g/dL (3.4-5.0); Albumin/Globulin Ratio 1.2 (1.1-1.8); Anion Gap 6.5 mEq/L (5.0-15.0); Bilirubin Direct 0.2 mg/dL (0-0.2); Bilirubin Indirect, Calculated 0.5 mg/dL (0.2-0.8); Bilirubin Total 0.7 mg/dL (0.2-1.0); Globulin 3.2 g/dL (2.3-3.5); Potassium 3.5 mEq/L (3.5-5.1); Protein, Total 7.1 g/dL (6.4-8.2); Troponin High Sensitivity 39.4 pg/mL (<58.9)
--- NOTE | 2024-01-23 13:21 | ER ---
Nurse's Notes [facility] Name: Laury Alfred Age: 78 yrs Sex: Female : 1945 Arrival Date: 01/23/2024 Time: 11:16 Bed 5 Private MD: Diagnosis: Generalized weakness Presentation: 01/22 11:56 Chief complaint: EMS states: dizziness that has been going on since 10 am. Coronavirus cp4 screen: Client denies travel out of the [place] in the last 14 days. At this time, the client does not indicate any symptoms associated with coronavirus-19. 11:56 Method Of Arrival: EMS: [facility] cp4 11:56 Ebola Screen: Patient negative for fever greater than or equal to 101.5 degrees cp4 Fahrenheit, and additional compatible Ebola Virus Disease symptoms Patient denies exposure to infectious person. Patient denies travel to an Ebola-affected area in the 21 days before illness onset. No symptoms or risks identified at this time. Initial Sepsis Screen: Does the patient meet any 2 criteria? No. Patient's initial sepsis screen is negative. Does the patient have a suspected source of infection? No. Patient's initial sepsis screen is negative. Risk Assessment: Do you want to hurt yourself or someone else? Patient reports no desire to harm self or others. Onset of symptoms was January 23, 2024. 11:56 Acuity: SUKH 3 cp4 Triage Assessment: 11:57 General: Appears uncomfortable, Behavior is calm, cooperative, appropriate for age. cp4 Pain: Denies pain. Neuro: No deficits noted. Reports dizziness, since 10 am. Historical: - Allergies: 11:57 No Known Allergies; cp4 - PMHx: 11:57 Diabetes - NIDDM; High Cholesterol; Hypertension; Kidney stones (hysterectomy); cp4 neuropathy; Non-Hodgkins Lymphoma; spinal stenosis; - PSHx: 11:57 hysterectomy; cp4 - Immunization history:: Adult Immunizations up to date. - Infectious Disease History:: Denies. CDIFF, C. Auris, ESBL, MRSA (w/in 1 year), VRE (w/in 1 year), TB, . - Social history:: Smoking status: Patient denies any tobacco usage or history of. Screenin:00 [facility] ED Fall Risk Assessment (Adult) History of falling in the last 3 months, cp4 including since admission No falls in past 3 months (0 pts) Confusion or Disorientation No (0 pts) Intoxicated or Sedated No (0 pts) Impaired Gait No (0 pts) Mobility Assist Device Used No (0 pt) Altered Elimination No (0 pt) Score/Fall Risk Level 0 - 2 = Low Risk Oriented to surroundings, Maintained a safe environment, Assessed \T\ reinforced patient's understanding of fall precautions, Hourly rounding (assess needs \T\ fall precautionary measures) done. Abuse screen: Denies threats or abuse. Nutritional screening: No deficits noted. Tuberculosis screening: No symptoms or risk factors identified. Assessment: 12:00 Reassessment: No changes from previously documented assessment. cp4 Vital Signs: 11:56 BP 140 / 80; Pulse 70; Resp 18; Temp 98; Pulse Ox 96% ; Pain 0/10; cp4 13:27 BP 156 / 59; Pulse 73; Resp 18; Pulse Ox 98% ; cp4 11:56 Pain Scale: Adult cp4 ED Course: 11:23 Patient arrived in ED. bd 11:27 Danny Gordon MD is Attending Physician. rt 11:33 Claire Mccord is Primary Nurse. cp4 11:57 Triage completed. cp4 11:57 Arm band placed on right wrist. Patient placed in an exam room, on a stretcher. cp4 12:00 Bed in low position. Call light in reach. Side rails up X 1. Provided Education on:. cp4 12:00 No provider procedures requiring assistance completed. cp4 12:01 XRAY Chest (1 view) In Process Unspecified. EDMS 12:23 CT Head Brain wo Cont In Process Unspecified. EDMS 12:57 Initial lab(s) drawn, by ct, sent to lab. Urine collected: clean catch specimen, clear. cp4 Inserted saline lock: 20 gauge in right antecubital area, using aseptic technique. Blood collected. 13:29 intact, bleeding controlled, No redness/swelling at site. Pressure dressing applied. cp4 Administered Medications: 12:57 Drug: NS 0.9% IV 500 ml IV at bolus once Route: IV; Rate: bolus; Site: right cp4 antecubital; 13:30 Follow up: Response: No adverse reaction; IV Status: Completed infusion cp4 Medication: 12:00 VIS not applicable for this client. cp4 Outcome: 13:20 Discharge ordered by . rt 13:29 Discharged to home ambulatory, cp4 13:29 Condition: stable 13:29 Discharge instructions given to patient, Instructed on discharge instructions, follow up and referral plans. Demonstrated understanding of instructions, follow-up care, 13:30 Patient left the ED. cp4 Signatures: Dispatcher [employer] EDMS Gavi White Ryan, MD MD rt Claire Mccord cp4 Corrections: (The following items were deleted from the chart) 11:58 11:57 Allergies: Aspirin; cp4 cp4
--- NOTE | 2024-01-23 13:21 | EDPHYS ---
Physician Documentation [facility] Name: Laury Alfred Age: 78 yrs Sex: Female : 1945 Arrival Date: 01/23/2024 Time: 11:16 Bed 5 Private MD: ED Physician Danny Gordon HPI: 01/22 14:38 This 78 yrs old Female presents to ER via EMS with complaints of Dizziness. rt 14:38 Patient presents to the ED with a generalized weakness, dizziness starting today. Also rt states that she has had an intermittent left facial numbness. The patient says that she off-and-on has the symptoms for many months. Denies any pain, other acute complaints, symptoms are moderate in severity, no other aggravating or alleviating factors.. Historical: - Allergies: : No Known Allergies; cp4 - PMHx: Diabetes - NIDDM; High Cholesterol; Hypertension; Kidney stones (hysterectomy); cp4 neuropathy; Non-Hodgkins Lymphoma; spinal stenosis; - PSHx: hysterectomy; cp4 - Immunization history:: Adult Immunizations up to date. - Infectious Disease History:: Denies. CDIFF, C. Auris, ESBL, MRSA (w/in 1 year), VRE (w/in 1 year), TB, . - Social history:: Smoking status: Patient denies any tobacco usage or history of. ROS: 14:38 Constitutional: Negative for fever, chills, and weight loss, Cardiovascular: Negative rt for chest pain, palpitations, and edema, Respiratory: Negative for shortness of breath, cough, wheezing, and pleuritic chest pain, Abdomen/GI: Negative for abdominal pain, nausea, vomiting, diarrhea, and constipation, Skin: Negative for injury, rash, and discoloration, 14:38 Neuro: Positive for dizziness, weakness, Exam: 14:38 Constitutional: ' Head/Face: Normocephalic, atraumatic. Chest/axilla: Normal chest rt wall appearance and motion. Nontender with no deformity. No lesions are appreciated. Cardiovascular: Regular rate and rhythm with a normal S1 and S2. No gallops, murmurs, or rubs. Normal PMI, no JVD. No pulse deficits. Respiratory: Lungs have equal breath sounds bilaterally, clear to auscultation and percussion. No rales, rhonchi or wheezes noted. No increased work of breathing, no retractions or nasal flaring. Abdomen/GI: Soft, non-tender, with normal bowel sounds. No distension or tympany. No guarding or rebound. No evidence of tenderness throughout. Skin: Warm, dry with normal turgor. Normal color with no rashes, no lesions, and no evidence of cellulitis. MS/ Extremity: Pulses equal, no cyanosis. Neurovascular intact. Full, normal range of motion. 14:38 Eyes: Extraocular muscles are intact, no visual field deficits. 14:38 ECG was reviewed by the Attending Physician. 14:38 Neuro: Speech normal, cranial nerves II through XII intact, strength and sensation intact in upper and lower extremities, Vital Signs: 11:56 BP 140 / 80; Pulse 70; Resp 18; Temp 98; Pulse Ox 96% ; Pain 0/10; cp4 13:27 BP 156 / 59; Pulse 73; Resp 18; Pulse Ox 98% ; cp4 11:56 Pain Scale: Adult cp4 MDM: 11:39 Patient medically screened. rt 14:54 Differential diagnosis: Dysrhythmia, CVA, electrolyte disturbance, anemia. Data rt reviewed: vital signs, nurses notes, lab test result(s), EKG, radiologic studies. Consideration of Admission/Observation Escalation of care including admission/observation considered. Offered patient admission to the hospital for further workup, patient declined stating that she wishes to go home, will return for worsening symptoms. I considered the following discharge prescriptions or medication management in the emergency department Medications were administered in the Emergency Department. See MAR. Independent interpretation of the following test(s) in the Emergency Department CT Scan: My interpretation is No intracranial hemorrhage seen on interpretation of CT scan images. Care significantly affected by the following chronic conditions: Diabetes, Hypertension. Counseling: I had a detailed discussion with the patient and/or guardian regarding the historical points, exam findings, and any diagnostic results supporting the discharge/admit diagnosis, lab results, radiology results, the need for outpatient follow up. Response to treatment: the patient's symptoms have mildly improved after treatment. 01/22 11:52 Order name: Basic Metabolic Panel; Complete Time: 13:07 rt 01/22 11:52 Order name: CBC with Diff; Complete Time: 13: rt 01/22 11:52 Order name: LFT's; Complete Time: 13:07 rt 01/22 11:52 Order name: Magnesium; Complete Time: 13:07 rt 01/22 11:52 Order name: NT PRO-BNP; Complete Time: 13:07 rt 01/22 11:52 Order name: Troponin HS; Complete Time: 13:07 rt 01/22 11:52 Order name: UAM; Complete Time: 13:07 rt 01/22 11:52 Order name: XRAY Chest (1 view); Complete Time: 12:32 rt 01/22 11:52 Order name: CT Head Brain wo Cont; Complete Time: 12:32 rt 01/22 11:52 Order name: EKG; Complete Time: 11:53 rt 01/22 11:52 Order name: Cardiac monitoring; Complete Time: 12:44 rt 01/22 11:52 Order name: EKG - Nurse/Tech; Complete Time: 12:44 rt 01/22 11:52 Order name: IV Saline Lock; Complete Time: 12:44 rt 01/22 11:52 Order name: Labs collected and sent; Complete Time: 12:44 rt 01/22 11:52 Order name: O2 Per Protocol; Complete Time: 12:44 rt 01/22 11:52 Order name: O2 Sat Monitoring; Complete Time: 12:44 rt EC:38 Rate is 50 beats/min. Rhythm is regular, Sinus bradycardia with No ectopy. QRS [place] is rt Normal. [place] interval is normal. QRS interval is normal. QT interval is normal. No Q waves. No ST changes noted. Administered Medications: 12:57 Drug: NS 0.9% IV 500 ml IV at bolus once Route: IV; Rate: bolus; Site: right cp4 antecubital; 13:30 Follow up: Response: No adverse reaction; IV Status: Completed infusion cp4 Disposition Summary: 01/23/24 13:20 Discharge Ordered Notes: Location: Home rt Problem: new rt Symptoms: have improved rt Condition: Stable rt Diagnosis - Generalized weakness rt Followup: rt - With: Private Physician - When: Tomorrow - Reason: Discharge Instructions: - Discharge Summary Sheet rt - Weakness rt Forms: - Medication Reconciliation Form rt - Antibiotic Education rt - Prescription Opioid Use rt - Patient Portal Instructions rt - Leadership Thank You Letter rt Signatures: Dispatcher [employer] Danny Mark MD MD rt Claire Mccord cp4 Corrections: (The following items were deleted from the chart) 11: 11:52 BASIC METABOLIC PANEL+C.LAB.BRZ ordered. EDMS EDMS 11 11:52 CBC+H.LAB.BRZ ordered. EDMS EDMS 11:53 11:53 HEPATIC FUNCTION+C.LAB.BRZ ordered. EDMS EDMS 11 11:53 MAGNESIUM+C.LAB.BRZ ordered. EDMS EDMS 11 11:53 PROBNP+C.LAB.BRZ ordered. EDMS EDMS 11: 11:53 Troponin High Sensitivity+C.LAB.BRZ ordered. EDMS EDMS 11: 11:53 Urinalysis W/Microscopic+U.LAB.BRZ ordered. EDMS EDMS 11: 11:53 Head Brain Wo Cont+CT.RAD.BRZ ordered. EDMS EDMS 11:58 11:57 Allergies: Aspirin; cp4 cp4
--- NOTE | 2024-01-24 14:03 | EKG ---
Test Date: 2024-01-23 Test Time: 12:45:52 Public Address Servicer: GREGORY MEASUREMENT RESULTS: Intervals: Rate: 50 NE: 176 QRSD: 86 QT: 488 QTc: 444 [place]: P: 90 NE: 176 QRS: 43 T: 27 INTERPRETIVE STATEMENTS: Sinus bradycardia Septal infarct, age undetermined Abnormal ECG Compared to ECG 12/17/2023 10:57:47 No significant changes Electronically Signed On 01-24-24 13:59:55 CDT by Saul Moctezuma
== END 2024-01-23 13:30 | disposition home or self-care (01) ==
LOC: ER 11:16
DX: R53.1 Weakness (principal); E11.9 Type 2 diabetes mellitus without complications; I10 Essential (primary) hypertension; Z85.72 Personal history of non-Hodgkin lymphomas
CPT/HCPCS: 85025; 81001; 80048; 36415; 83735; 80076; 84484; 83880; 70450; 71045; J7040; 93005

== ENCOUNTER 2024-03-13 10:49 | Day surgery (SDC) | payer OTHER ==
[2024-03-07 10:38] LABS: Absolute Eosinophils 0.3 K/uL (0-0.5); Absolute Lymphocytes (CBC) 1.4 K/uL (0.7-4.9); Absolute Monocytes 0.4 K/uL (0.1-1.3); Absolute Neutrophil 4.5 K/uL (1.8-8.0); Basophils % 0.5 % (0-1.3); Eosinophils % 5.1 % (0-4.4); Hemoglobin 12.4 g/dL (12.0-15.0); Lymphocytes % 21.4 % (15.3-44.8); MCH 29.8 pg (27.0-35.0); MCHC 32.6 g/dL (32.0-36.0); MCV 91.3 fL (80-100); MPV 7.8 fL (7.6-11.3); Platelets 172 thou/uL (152-406); RBC Red Blood Cell Count 4.17 M/uL (3.86-4.86); Red Cell Distribution Width 13.6 % (12.1-15.2)
[2024-03-07 10:44] LABS: PT Prothrombin Time 11.3 SECONDS (9.4-12.5); Protime INR 1.03
[2024-03-07 10:52] LABS: Anion Gap 2.8 mEq/L (5.0-15.0); Potassium 3.8 mEq/L (3.5-5.1)
[2024-03-13] MEDS: NA CHLORIDE 0.9% 1,000 ML ONE (11:20)
[2024-03-13] MEDS ORDERED: propofoL 200 MG/20 ML VIAL IV ONE (13:16)
[2024-03-13] MEDS ORDERED: FENTANYL CITR 100 MCG/2 ML ONE (13:16)
[2024-03-13] MEDS ORDERED: LIDOCAINE 1% MPF 5 ML VIAL ONE (13:16)
[2024-03-13] MEDS ORDERED: GENTAMICIN 80 MG/100 ML BAG 0 MG/0 ML BAG IV ONE (13:38)
[2024-03-13] MEDS ORDERED: EPHEDRINE SULF 50 MG/ML VIAL ONE (13:56)
[2024-03-13] MEDS: AMPICILLIN SODIUM 2 GM/VIAL VIAL ONE (13:59)
[2024-03-13] MEDS: Gentamicin Inj 160 MG in NA CHLORIDE 0.9% 100 ML IV SCH (14:00)
[2024-03-13] MEDS ORDERED: GLYCOPYRROLATE 0.2 MG/ML SYR ONE (14:19)
[2024-03-13] MEDS ORDERED: ONDANSETRON 4 MG/2 ML VIAL ONE (14:28)
[2024-03-13] MEDS ORDERED: dexAMETHasone 10 MG/ML VIAL ONE (14:28)
--- NOTE | 2024-03-13 16:29 | RAD REPORT ---
EXAM DESCRIPTION: RAD - Urethrocystogrphy Retrograde - 03/13/2024 4:01 pm CLINICAL HISTORY: ICD N 20.0 FINDINGS: 15 fluoroscopic spot images obtained. Fluoroscopy time .39 minutes Left ureter was cannulated and contrast administered. Subsequently an ureteral stent was placed. Exam ination was performed by Dr Menjivar
[2024-03-13] MEDS ORDERED: PHENAZOPYRIDINE 100MG TAB PO ONE ×2 (16:37→16:49)
[2024-03-13] MEDS: PHENAZOPYRIDINE 100MG TAB PO ONE (16:48)
[2024-03-13 17:05] VITALS: BP 119/47; TEMP 97.7; O2SAT 99
[2024-03-13] MEDS ORDERED: HYDROCODONE/APAP 5/325 MG TAB ONE (17:09)
[2024-03-13] MEDS: HYDROCODONE/APAP 5/325 MG TAB PO PRN (17:12)
--- NOTE | 2024-03-14 02:35 | OP ---
Surgeon: KELLI OTERO Preoperative Diagnoses: 1. History of staghorn left renal calculus. 2. Right large-volume nephrolithiasis. 3. Large-volume left nephrolithiasis. 4. Status post left extracorporeal shock wave lithotripsy with left ureteral stent placement. Postoperative Diagnoses: 1. Large-volume left nephroureterolithiasis. 2. Status post left extracorporeal shock wave lithotripsy with stent placement for staghorn calculus. 3. Radiopaque right nephrolithiasis. Principal Procedures: 1. Cystoscopy. 2. Left retrograde pyelography. 3. Left ureteroscopy with laser lithotripsy. 4. Left pyeloscopy with extensive laser lithotripsy, 40,000 total joules of laser energy required. 5. Ureteroscopic stone basketing and extraction. 6. Left ureteral stent exchange. Indication For Procedure: Ms. Alfred presented to the Urology Clinic with bilateral nephrolithiasis. She had a staghorn calculus in the left kidney and a large 13 mm calculus present in the right kidney. She underwent left ESWL a few months back, which did significantly fragment a portion of the burden of the left staghorn calculus, but significant residual stone burden yet remained. As a result, she presents for definitive ureteroscopy with laser lithotripsy as the meat of the sandwich ESWL approach. Procedure In Detail: The patient was consented in the preoperative holding area before being transferred to the operative suite where general anesthesia was induced. She was given ampicillin 2 g and gentamicin 160 mg IV antimicrobial prophylaxis. Pneumo boots were provided for DVT prophylaxis. She was placed in the lithotomy position, padded and secured to the table appropriately. Her genitalia were prepped with Hibiclens and draped in standard fashion. The case was begun using a 22-Peruvian rigid cystoscope to traverse the urethra and into the bladder with ease. The bladder was decompressed of fluid and urine and then refilled with sterile saline and surveyed. The ureteral stent was emanating from the left ureteral orifice, and the tip of the coil of the stent was grasped and delivered to the meatus. I then attempted to pass a Sensor wire via the coil of the stent, but it was somewhat encrusted in the tip. As a result, I cut off a portion of the exposed coil of the stent and then was successfully able to pass the Sensor wire up the stent, which had its proximal coil still within the proximal ureter/renal pelvis. As a result, I was able to navigate the wire into the putative collecting system on the right, where some radiopaque calculi were noted and visible, even extending into the proximal ureter. With the collecting system, I then advanced a dual-lumen catheter over the wire after removing the stent. I then advanced the dual-lumen catheter until it reached a point of obstruction in the mid proximal ureter, coincident with the radiopaque stone dust present in that location. Through the second lumen of the dual-lumen catheter, I then injected a 70:30 mixture of Omnipaque and saline to perform a retrograde pyelogram study. Left Retrograde Pyelography: Using the contrast mixture, the contrast did emanate irregularly up the proximal ureter and into the renal pelvis and calyces, indicating appropriate localization of the Sensor wire previously placed. As a result, I then removed the dual-lumen catheter and passed a 12 x 14-Peruvian ureteral access sheath over the wire into the proximal ureter where it reached the point of obstruction. I removed the inner cannula and then performed direct vision flexible ureteroscopy up the ureteral access sheath of that area. Several very hard stone fragments, approximately 3 mm or so in size each were noted in the proximal ureter, now causing obstruction with the stent having been removed. I thus utilized the 272 nm laser fiber at a power setting initially of 0.8 joules and 10 hertz to begin to try to fragment the stones in the ureter. There was limited success with this and a lot of stone burden fragments that had fallen into the proximal ureter; so I eventually had to increase the power to 1 joule and 10 hertz to continue fragmentation and trying to wash those stone fragments out of the ureteral access sheath. Once I was successful clearing the stone burden from the proximal ureter, I was then able to navigate the ureteroscope all the way into the collecting system. I surveyed the calyces of the kidney and identified significant size remnant stone fragments within the upper and mid pole calyces as well as a lot of stone present in the lower pole that appeared to be mostly untouched. As a result, starting in the upper pole and mid pole, I utilized a laser fiber at a power setting initially of 1.2 joules and 25 hertz to begin to fragment the remaining significant size stone burden. After dusting the stones in the upper pole and then moving to the mid pole, I then dusted the stones in the mid pole. There was significant residual stone burden present, so a lot of lithotripsy was performed. Eventually, because the stones were so hard and reticent to fragment, I increased the power to 1.5 joules and 25 hertz and continued the fragmentation. This was still limited in success at fragmenting the very hard stone fragments present; so eventually, I switched to a power setting of 2 joules and 15 hertz, a total of 30 jolly in order to more successfully fragment the very hard stone residual fragments. This was more successful; so I fragmented the stones in the mid pole and then moved down into the lower pole where there were large stones that had not been previously touched. As a result, I began laser lithotripsy of those stones of which there were 4 or 5 in the lower pole, extensively. After 40,000 joules of energy in total had been used, and the laser fiber, the second of 2 laser fibers employed, had been used and the tip was spent, I had fragmented much of the stone, although not all of the lower pole stone burden had been fragmented smaller than 1 mm as desired. However, more than an hour and a half of actual lithotripsy time had elapsed at this point; and so before it got to 2 hours, I surveyed the proximal down into the distal ureter to ensure absence of any injury before removing the ureteral access sheath, which had been placed early on in the case after the dual-lumen catheter was removed to facilitate ease of removal of some of the stone dust, and once I confirmed absence of any ureteral injury, I then back-loaded the cystoscope over the indwelling safety wire and placed a 6-Peruvian by 26 cm double-J ureteral stent. A coil was observed fluoroscopically in the renal pelvis and one cystoscopically was formed in the bladder. To further confirm integrity of the system, I then placed a 5-Peruvian ureteral access catheter alongside the indwelling ureteral stent and performed a retrograde pyelography study. Left retrograde pyelography along stent procedure note: Using a full-strength contrast bolus of Omnipaque, contrast was injected via the lumen of the 5-Peruvian ureteral access catheter and did propagate up the distal into the mid and proximal ureter before entering the renal pelvis and calyces without any sign of extravasation. There was some initial irregularity in the renal pelvis and proximal ureter where the contrast surrounded all of the stone dust material present there, but this eventually settled out with absolutely no filling defects noted. Contrast in the ureter did seem to drain nicely as well as from the kidney. As a result, I removed the 5-Peruvian ureteral access catheter, leaving the double-J ureteral stent in place, and I decompressed her bladder of fluid and urine before taking her out of the lithotomy position. She was then awakened from general anesthesia, transferred to a stretcher, and then transferred to the recovery room in good condition. Complications: None. Discharge Disposition: She will be instructed to drink sufficient fluids such that she produces at least 2.5 to 3 L of urine daily. After 2 to 3 weeks of drinking plenty of fluid and lying on her right side with her head slightly down, to try to pass a lot of that stone dust, I then want her to get a KUB to assess for visibility of any significant residual stone burden in the left kidney. The right kidney stone is known to be fluoroscopically visible. She may then follow up with me thereafter in the Urology Clinic, where we will consider whether additional shock wave lithotripsy would be of value or if the stone has been sufficiently fragmented, that we might perform cystoscopy and left ureteral stent extraction. After all of this is said and done, a definitive metabolic stone profile assessment will be required for this woman with large-volume bilateral nephrolithiasis. HETAL/JAZMIN Voice ID: [id number] Report ID: [id number] KEYANA
== END 2024-03-13 19:24 | disposition home or self-care (01) ==
LOC: OR 10:49
PROVIDERS: ATTEND Urology
PROC: 0TC78ZZ Extirpation of Matter from Left Ureter, Via Natural or Artificial Opening Endoscopic (ICD-10-PCS; 2024-03-13)
PROC: 0T778DZ Dilation of Left Ureter with Intraluminal Device, Via Natural or Artificial Opening Endoscopic (ICD-10-PCS; 2024-03-13)
PROC: 0TC18ZZ Extirpation of Matter from Left Kidney, Via Natural or Artificial Opening Endoscopic (ICD-10-PCS; principal; 2024-03-13 12:30)
DX: N20.2 Calculus of kidney with calculus of ureter (principal)
CPT/HCPCS: 36415; 51610; 74450; 80048; 82360; 82947; 85025; 85610; 87086; 87088; 88300; J0290; J1100; J1580; J2001; J2405; J2704; J3010; J7030

== ENCOUNTER 2024-04-29 06:20 | Day surgery (SDC) | payer OTHER ==
[2024-04-22 08:44] LABS: Absolute Eosinophils 0.3 K/uL (0-0.5); Absolute Lymphocytes (CBC) 1.9 K/uL (0.7-4.9); Absolute Monocytes 0.5 K/uL (0.1-1.3); Absolute Neutrophil 3.3 K/uL (1.8-8.0); Basophils % 0.8 % (0-1.3); Eosinophils % 4.5 % (0-4.4); Hemoglobin 12.4 g/dL (12.0-15.0); Lymphocytes % 31.8 % (15.3-44.8); MCH 30.3 pg (27.0-35.0); MCHC 33.4 g/dL (32.0-36.0); MCV 90.5 fL (80-100); MPV 7.8 fL (7.6-11.3); Monocytes % 8.1 % (3.3-12.3); Neutrophils % 54.8 % (41.7-73.7); Platelets 172 thou/uL (152-406); RBC Red Blood Cell Count 4.09 M/uL (3.86-4.86); Red Cell Distribution Width 13.4 % (12.1-15.2)
[2024-04-22 08:53] LABS: Anion Gap 13.2 mEq/L (5.0-15.0); Potassium 4.2 mEq/L (3.5-5.1)
[2024-04-22 09:22] LABS: PT Prothrombin Time 11.5 SECONDS (9.4-12.5); Protime INR 1.03
[2024-04-29] MEDS ORDERED: Ringers Lactate 1,000 ML IV ONE (06:40)
[2024-04-29] MEDS ORDERED: SUGAMMADEX SODIUM 200 MG/2 ML VIAL IV ONE (07:08)
[2024-04-29] MEDS ORDERED: LIDOCAINE 2% MPF 5 ML VIAL ONE (07:12)
[2024-04-29] MEDS ORDERED: ONDANSETRON 4 MG/2 ML VIAL ONE (07:12)
[2024-04-29] MEDS ORDERED: FENTANYL CITR 100 MCG/2 ML ONE (07:12)
[2024-04-29] MEDS ORDERED: propofoL 200 MG/20 ML VIAL IV ONE (07:12)
[2024-04-29] MEDS ORDERED: EPHEDRINE SULF 50 MG/ML VIAL ONE (07:38)
[2024-04-29] MEDS: CEFAZOLIN SODIUM 2 GM/VIAL ONE (07:41)
[2024-04-29 08:54] VITALS: O2SAT 100
[2024-04-29] MEDS ORDERED: HYDROCODONE/APAP 5/325 MG TAB PO PRN (09:07)
[2024-04-29] MEDS ORDERED: PHENAZOPYRIDINE 100MG TAB PO ONE (10:09)
[2024-04-29] MEDS: PHENAZOPYRIDINE 100MG TAB PO ONE (10:13)
--- NOTE | 2024-04-29 10:27 | OP ---
Surgeon: KELLI OTERO Preoperative Diagnoses: 1.Residual left nephrolithiasis. 2.Status post left extracorporeal shockwave lithotripsy followed by ureteroscopy with laser lithotri psy for large volume stone burden. Postoperative Diagnoses: 1.Residual left nephrolithiasis. 2.Status post left extracorporeal shockwave lithotripsy followed by ureteroscopy with laser lithotri psy for large volume stone burden. Principal Procedures: 1.Left extracorporeal shockwave lithotripsy. 2.Cystoscopy with left ureteral stent extraction. Indication For Procedure: Ms. Alfred presented to the Urology Clinic with large left stone burden w ith 2 stones in a partial staghorn configuration measuring 12 x 17 mm involving the left side. She a dditionally had right-sided significant volume nephrolithiasis. She was counseled on options for man agement and ultimately elected the sandwich ESWL approach and underwent the first step shockwave lith otripsy followed by ureteroscopy with laser lithotripsy, and on followup evaluation, there was some s mall residual stone burden with a dominant fragment measuring around 4 mm on KUB. As a result, she w as counseled on the potential benefit to further shockwave lithotripsy to minimize the risk of future stone passage event. Also, because of the pre-placed left ureteral stent, which was causing her a d egree of stent discomfort, we endeavored to remove the stent today as well. Procedure In Detail: The patient was consented in the preoperative holding area before being transfe rred to the operative suite where general anesthesia was induced. She was given Ancef 2 g IV antimic robial prophylaxis, and pneumo boots were provided for DVT prophylaxis. She was placed supine on the shockwave lithotripsy table with a water bath beneath her flank, and fluoroscopic targeting was perf ormed of the stone starting in the lower pole where 2 dominant areas of stone burden were noted. Tar geting was performed in the dorsal ventral as well as left right positions and shockwave lithotripsy was initiated. Starting at a power of 4 and increasing over the course of 500 shocks to a power of a round 6 to 6.5, a 2 minute pause was performed at around 250 shocks. We then increased the rate of s hock wave lithotripsy to 1.5 hertz and continued shocking the 2 areas of density in the lower pole un til approximately 1000 shocks had been delivered. We then proceeded to the stone burden seen in the upper pole and targeted that for an additional approximately 750 shocks. 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 T hree areas of stone density were noted, the first most proximal just distal to the UPJ, and a second area a bit more distal above the pelvic brim. The third area of stone density noted was overlying th e pelvic iliac crest; so this was not targetable. We thus continued with an additional 1000 shocks t argeting along each of those areas of stone density noted until a total of approximately 3000 shocks had been delivered. At this point, the patient was then placed in the frog-leg position and her manuel adrien prepped with Hibiclens and draped in standard fashion. I then passed a 22-Gambian rigid cystosc ope via her urethra into her bladder and decompressed the bladder of fluid and some mildly hemorrhagi c urine. I then refilled the bladder with sterile saline and identified the presence of a left urete ral stent, which was not significantly encrusted at all. I grabbed the tip of the coil of the stent and was able to deliver the entirety of the stent with both coils intact easily and without any sign of resistance. I then decompressed her bladder of fluid and urine, and the patient was taken out of the frog-leg position. She was then awakened from general anesthesia, transferred to a stretcher, an d then transferred to the recovery room in good condition. Complications: None. Discharge Disposition: She will be monitored for signs of Steinstrasse related obstruction and other gerber we will plan subsequent followup in about 2-3 months' time to target her right-sided stone joaquin FONG/JAZMIN Voice ID: [id number] Report ID: [id number]
[2024-04-29 10:55] VITALS: BP 121/48; TEMP 97
== END 2024-04-29 10:40 | disposition home or self-care (01) ==
LOC: OR 06:20
PROVIDERS: ATTEND Urology
PROC: 0T778DZ Dilation of Left Ureter with Intraluminal Device, Via Natural or Artificial Opening Endoscopic (ICD-10-PCS; 2024-04-29)
PROC: 0TFB8ZZ Fragmentation in Bladder, Via Natural or Artificial Opening Endoscopic (ICD-10-PCS; principal; 2024-04-29 07:30)
DX: N20.0 Calculus of kidney (principal)
CPT/HCPCS: 87088; 85025; 87086; 80048; 36415; 85610; 82947 ×2; 50590; 52317; 52332; J2704; J2001; J3010; J2405; J7120

== ENCOUNTER 2024-08-10 14:46 | Emergency (ER) | payer OTHER ==
[2024-08-10] MEDS ORDERED: MORPHINE 4 MG/ML SYR ONE (15:05)
[2024-08-10] MEDS ORDERED: ONDANSETRON 4 MG/2 ML VIAL ONE (15:05)
[2024-08-10 15:22] LABS: Absolute Basophils 0.1 K/uL (0-0.5); Absolute Eosinophils 0.2 K/uL (0-0.5); Absolute Lymphocytes (CBC) 1.5 K/uL (0.7-4.9); Absolute Monocytes 0.7 K/uL (0.1-1.3); Absolute Neutrophil 5.7 K/uL (1.8-8.0); Basophils % 0.7 % (0-1.3); Eosinophils % 2.2 % (0-4.4); Hemoglobin 11.9 g/dL (12.0-15.0); Lymphocytes % 18.4 % (15.3-44.8); MCH 29.8 pg (27.0-35.0); MCHC 33.1 g/dL (32.0-36.0); MCV 89.9 fL (80-100); MPV 7.9 fL (7.6-11.3); Monocytes % 8.5 % (3.3-12.3); Neutrophils % 70.2 % (41.7-73.7); Platelets 168 thou/uL (152-406); Red Cell Distribution Width 12.9 % (12.1-15.2)
[2024-08-10 15:39] LABS: Albumin 3.4 g/dL (3.4-5.0); Anion Gap 8.8 mEq/L (5.0-15.0); Bilirubin Total 0.6 mg/dL (0.2-1.0); Globulin 3.5 g/dL (2.3-3.5); Potassium 3.8 mEq/L (3.5-5.1); Protein, Total 6.9 g/dL (6.4-8.2)
--- NOTE | 2024-08-10 15:42 | RAD REPORT ---
EXAMINATION: CT ABDOMEN AND PELVIS WITHOUT CONTRAST CLINICAL INDICATION: FLANK PAIN TECHNIQUE: CT abdomen and pelvis was performed, without IV contrast, as per department protocol. Axia l, sagittal and coronal reconstructions were obtained. One or more of the following dose reduction techniques were used: Automated exposure control, adjustment of the mA and kV according to the patien t size, and iterative reconstruction. Unless otherwise specified, incidental findings do not require dedicated imaging follow-up. COMPARISON: 07/13/2023 FINDINGS: The lack of intravenous contrast limits the sensitivity of this exam for evaluation of solid visceral organs, vascular structures, and retroperitoneum. LOWER CHEST: The visualized lung bases are clear. LIVER:Normal in size and contour. No focal lesion. Grossly unremarkable gallbladder. SPLEEN: Normal size. No focal lesion. PANCREAS: No mass, ductal dilation, or april-pancreatic fluid. ADRENALS: Normal; no mass. KIDNEYS AND URETERS: There are numerous stones in the right ureter including the distal right ureter measuring 5 mm, proximal right ureter numerous stones are seen the largest collection which measures 12 mm in craniocaudad dimension. There is moderate right hydronephrosis. Numerous stones are seen layering dependently in the right renal pelvis which is dilated. Several calyceal stones also present. Punctate stones are present inferior left renal calyces no significant left-sided hydronephr osis. URINARY BLADDER: Normal contour. GASTROINTESTINAL TRACT: No evidence of bowel obstruction, significant free fluid, free air or abscess . APPENDIX: Appendix not visualized, but no inflammatory changes in region of appendix. LYMPH NODES: No lymphadenopathy. MUSCULOSKELETAL: No acute or suspicious osseous abnormality. ADDITIONAL FINDINGS: None. IMPRESSION: Extensive calculi seen in the right collecting system as detailed. This is presumably related to prio r lithotripsy. Mild right hydronephrosis is present. Left nephrolithiasis without hydronephrosis. Previous noted large stone inferior calyx left kidney ap pears to have been fragmented.
[2024-08-10 17:25] LABS: Specific Gravity 1.006 (1.005-1.030); Sqamous Epithelial <5 /HPF (None Seen); Urine Bacteria <20 /HPF (<20); Urine Bilirubin NEGATIVE (Negative); Urine Blood 1+ (Negative); Urine Clarity Clear (Clear); Urine Color Light-Yellow (Yellow); Urine Culture Reflex Order NOT NEEDED; Urine Glucose NEGATIVE (Negative); Urine Ketones NEGATIVE (Negative); Urine Microscopic Reflex YN ORDER UMIC; Urine Nitrite NEGATIVE (Negative); Urine Protein NEGATIVE (Negative); Urine Urobilinogen Normal (Normal); Urine WBC <5 /HPF (<5); Urine Yeast (Budding) Trace /HPF (None Seen); Urine pH 6.5 (5.0-7.0)
--- NOTE | 2024-08-10 17:31 | ER ---
Nurse's Notes [facility] Name: Laury Alfred Age: 78 yrs Sex: Female : 1945 Arrival Date: 08/10/2024 Time: 14:46 Bed 7 Private MD: Diagnosis: Calculus of ureter Presentation: 08/10 15:03 Chief complaint: Patient states: Right sided flank pain onset 2 days ago. Pt states cm10 that last Sunday she had lithotripsy of the right kidney and the pain got worse [address] Menjivar is urologist. Coronavirus screen: Client denies travel out of the [place] in the last 14 days. Ebola Screen: Patient denies travel to an Ebola-affected area in the 21 days before illness onset. No symptoms or risks identified at this time. Initial Sepsis Screen: Does the patient meet any 2 criteria? No. Patient's initial sepsis screen is negative. Does the patient have a suspected source of infection? No. Patient's initial sepsis screen is negative. Risk Assessment: Do you want to hurt yourself or someone else? Patient reports no desire to harm self or others. Onset of symptoms was August 08, 2024. 15:03 Method Of Arrival: Ambulatory cm10 15:03 Acuity: SUKH 3 cm10 Triage Assessment: 15:08 General: Appears in no apparent distress. uncomfortable, Behavior is calm, cooperative. cm10 Pain: Complains of pain in right flank Pain radiates to right lower quadrant Pain currently is 8 out of 10 on a pain scale. Neuro: No deficits noted. Level of Consciousness is awake, alert, Oriented to person, place, time, situation, Appropriate for age. Respiratory: No deficits noted. Airway is patent Respiratory effort is even, unlabored, Respiratory pattern is regular, symmetrical. Historical: - Allergies: 15:05 No Known Allergies; cm10 - Home Meds: 15:05 gabapentin 300 mg Oral tab 1 cap twice a day [Active]; glimepiride 1 mg Oral tab 1 tab cm10 once daily [Active]; pravastatin 40 mg Oral tab 1 tab once daily [Active]; lisinopril 5 mg Oral tab 1 tab once daily [Active]; donepezil 10 mg oral tablet 1 tab every day at bedtime [Active]; duloxetine 60 mg oral capsule,delayed release (e.c.) 1 cap daily [Active]; memantine 5 mg oral tablet 1 tab 2 times per day [Active]; - PMHx: 15:05 Diabetes - NIDDM; High Cholesterol; Hypertension; Kidney stones (hysterectomy); cm10 neuropathy; Non-Hodgkins Lymphoma; spinal stenosis; Dementia; - PSHx: 15:05 hysterectomy; Lithotripsy; cm10 - Immunization history:: Adult Immunizations up to date. - Infectious Disease History:: Denies. - Social history:: Smoking status: Patient denies any tobacco usage or history of. Screenin:09 [facility] ED Fall Risk Assessment (Adult) History of falling in the last 3 months, me1 including since admission No falls in past 3 months (0 pts) Confusion or Disorientation No (0 pts) Intoxicated or Sedated No (0 pts) Impaired Gait No (0 pts) Mobility Assist Device Used No (0 pt) Altered Elimination No (0 pt) Score/Fall Risk Level 0 - 2 = Low Risk Maintained a safe environment, Provided non-skid footwear, Hourly rounding (assess needs \T\ fall precautionary measures) done. Abuse screen: Denies threats or abuse. Nutritional screening: No deficits noted. Tuberculosis screening: No symptoms or risk factors identified. Assessment: 15:09 General: Appears uncomfortable, well groomed, well developed, well nourished, Behavior me1 is calm, cooperative, appropriate for age, Reports Right sided flank pain onset 2 days ago. Pt states that last Sunday she had lithotripsy of the right kidney and the pain got worse [address] Menjivar is urologist. Pain: Complains of pain in back and right flank Pain radiates to abdomen and right lower quadrant Pain currently is 8 out of 10 on a pain scale. Quality of pain is described as sharp, Pain began gradually, 2-3 days ago. Is continuous. Neuro: Level of Consciousness is awake, alert, obeys commands, Oriented to person, place, time, situation, Appropriate for age. Cardiovascular: Patient's skin is warm and dry. Respiratory: Airway is patent Respiratory effort is even, unlabored, Respiratory pattern is regular, symmetrical. GI: Abdomen is round Bowel sounds present X 4 quads. Abd is soft X 4 quads Reports bloating, nausea. : Reports pain worsened after lithotripsy 2 days ago. EENT: No signs and/or symptoms were reported regarding the EENT system. Derm: Skin is intact, is healthy with good turgor, Skin is pale. Musculoskeletal: No signs and/or symptoms reported regarding the musculoskeletal system. Vital Signs: 15:00 BP 145 / 56; Pulse 57; Resp 18; Pulse Ox 99% ; me1 15:03 BP 153 / 60; Pulse 55; Resp 18; Temp 97.9(O); Pulse Ox 100% on R/A; Weight 81.65 kg; cm10 Pain 8/10; 15:31 Pain 5/10; me1 16:00 BP 138 / 57; Pulse 62; Resp 16; Pulse Ox 97% ; me1 17:00 BP 130 / 54; Pulse 56; Resp 16; Pulse Ox 97% ; me1 18:00 BP 122 / 53; Pulse 59; Resp 16; Temp 98.4; Pulse Ox 97% ; me1 15:03 Pain Scale: Adult cm10 15:31 Pain Scale: Adult me1 ED Course: 14:53 Patient arrived in ED. mg5 14:55 Paul Marquez MD is Attending Physician. ec2 15:02 Ayana Guajardo, KARINA is Primary Nurse. me1 15:05 Triage completed. cm10 15:08 Arm band placed on right wrist. Patient placed in an exam room, on a stretcher. cm10 15:09 Patient has correct armband on for positive identification. Bed in low position. Call me1 light in reach. Side rails up X 1. Provided Education on: POC. Verbalized understanding. . Client placed on continuous cardiac and pulse oximetry monitoring. NIBP monitoring applied. Pulse ox on. NIBP on. 15:09 No provider procedures requiring assistance completed. me1 15:17 Inserted saline lock: 20 gauge in right antecubital area, using aseptic technique. am7 Flushed with 10 mL NS. 15:27 CT Abd/Pelvis - Without Contrast In Process Unspecified. EDMS 17:31 Nico Menjivar MD is Referral Physician. ec2 18:14 IV discontinued, intact, bleeding controlled, No redness/swelling at site. Pressure me1 dressing applied. Administered Medications: 15:15 Drug: Ondansetron IVP 4 mg IVP once; over 2 minutes Route: IVP; Site: right antecubital;me1 15:31 Follow up: Response: No adverse reaction; Nausea is decreased me1 15:15 Drug: morphine IVP or IV 4 mg IVP once over 4 mins Route: IVP; Infused Over: 4 mins; me1 Site: right antecubital; 15:31 Follow up: Pain 5/10 Adult; Response: No adverse reaction; Pain is decreased me1 18:06 Drug: HYDROcodone-acetaminophen PO 5 mg-325 mg 1 tabs PO once Route: PO; me1 18:15 Follow up: Response: No adverse reaction; Pain is decreased me1 Medication: 15:09 VIS not applicable for this client. me1 Outcome: 17:31 Discharge ordered by . ec2 18:14 Discharged to home ambulatory, me1 18:14 Condition: stable 18:14 Discharge instructions given to patient, Instructed on discharge instructions, follow up and referral plans. medication usage, Demonstrated understanding of instructions, follow-up care, medications, Prescriptions given X 1, 18:15 Patient left the ED. me1 Signatures: Dispatcher [employer] EDCori Villar RN RN cm10 Ayana Guajardo RN RN me1 Sabrina Johnson mg5 Paul Marquez MD MD ec2 Estephania Bell am7 Corrections: (The following items were deleted from the chart) 15:09 15:03 Chief complaint: Patient states: Right sided flank pain onset 2 days ago. Pt me1 states that last Sunday she had lithotripsy of the right kidney and the pain got worse [address] Menjivar is urologist. cm10
--- NOTE | 2024-08-10 17:31 | EDPHYS ---
Physician Documentation [facility] Name: Laury Alfred Age: 78 yrs Sex: Female : 1945 Arrival Date: 08/10/2024 Time: 14:46 Bed 7 Private MD: ED Physician Paul Marquez HPI: 08/10 15:12 This 78 yrs old Female presents to ER via Ambulatory with complaints of Flank ec2 Pain. 15:12 Patient arrives today for right-sided flank pain. History of kidney stones, had a ec2 recent lithotripsy on the right side. Patient complaining of some abdominal pain along with nausea. No vomiting, no diarrhea. . Historical: - Allergies: 15:05 No Known Allergies; cm10 - Home Meds: 15:05 gabapentin 300 mg Oral tab 1 cap twice a day [Active]; glimepiride 1 mg Oral tab 1 tab cm10 once daily [Active]; pravastatin 40 mg Oral tab 1 tab once daily [Active]; lisinopril 5 mg Oral tab 1 tab once daily [Active]; donepezil 10 mg oral tablet 1 tab every day at bedtime [Active]; duloxetine 60 mg oral capsule,delayed release (e.c.) 1 cap daily [Active]; memantine 5 mg oral tablet 1 tab 2 times per day [Active]; - PMHx: 15:05 Diabetes - NIDDM; High Cholesterol; Hypertension; Kidney stones (hysterectomy); cm10 neuropathy; Non-Hodgkins Lymphoma; spinal stenosis; Dementia; - PSHx: 15:05 hysterectomy; Lithotripsy; cm10 - Immunization history:: Adult Immunizations up to date. - Infectious Disease History:: Denies. - Social history:: Smoking status: Patient denies any tobacco usage or history of. ROS: 15:12 Constitutional: as per hpi ec2 Exam: 15:12 Constitutional: GEN: NAD Head: atraumatic Eyes: EOMI Ears: External ears are ec2 normal. CV: regular rate LUNGS: no respiratory distress ABD: non-distended obese, soft, tender in the right abdomen SKIN: no evidence of rashes MSK: no evidence of trauma Vital Signs: 15:00 BP 145 / 56; Pulse 57; Resp 18; Pulse Ox 99% ; me1 15:03 BP 153 / 60; Pulse 55; Resp 18; Temp 97.9(O); Pulse Ox 100% on R/A; Weight 81.65 kg; cm10 Pain 8/10; 15:31 Pain 5/10; me1 16:00 BP 138 / 57; Pulse 62; Resp 16; Pulse Ox 97% ; me1 17:00 BP 130 / 54; Pulse 56; Resp 16; Pulse Ox 97% ; me1 18:00 BP 122 / 53; Pulse 59; Resp 16; Temp 98.4; Pulse Ox 97% ; me1 15:03 Pain Scale: Adult cm10 15:31 Pain Scale: Adult me1 MDM: 14:55 Medical Screening Exam initiated ec2 15:12 Data reviewed: vital signs, nurses notes. ED course: Patient arrives today for ec2 evaluation of right-sided abdominal pain in setting of recent ureteral stones. Examination shows abdominal findings as above. Will obtain lab work, CT imaging. Differential includes ureteral stone, pyelonephritis.. 17:30 ED course: CT imaging shows moving calculi consistent with the patient's recent ec2 lithotripsy. Will discharge home at the patient follow-up with urology. Return precautions given.. 08/10 14:58 Order name: CBC with Diff; Complete Time: 15:35 ec2 08/10 14:58 Order name: CMP; Complete Time: 15:39 ec2 08/10 14:58 Order name: Lipase; Complete Time: 15:39 ec2 08/10 14:58 Order name: Urinalysis w/ reflexes; Complete Time: 17:30 ec2 08/10 14:58 Order name: CT Abd/Pelvis - Without Contrast; Complete Time: 15:46 ec2 08/10 14:58 Order name: IV Saline Lock; Complete Time: 15:15 ec2 08/10 14:58 Order name: Labs collected and sent; Complete Time: 15:15 ec2 Administered Medications: 15:15 Drug: Ondansetron IVP 4 mg IVP once; over 2 minutes Route: IVP; Site: right antecubital;ut1 15:31 Follow up: Response: No adverse reaction; Nausea is decreased me1 15:15 Drug: morphine IVP or IV 4 mg IVP once over 4 mins Route: IVP; Infused Over: 4 mins; me1 Site: right antecubital; 15:31 Follow up: Pain 5/10 Adult; Response: No adverse reaction; Pain is decreased me1 18:06 Drug: HYDROcodone-acetaminophen PO 5 mg-325 mg 1 tabs PO once Route: PO; me1 18:15 Follow up: Response: No adverse reaction; Pain is decreased me1 Disposition Summary: 08/10/24 17:31 Discharge Ordered Notes: Location: Home ec2 Condition: Stable ec2 Diagnosis - Calculus of ureter ec2 Followup: ec2 - With: Nico Menjivar MD - When: - Reason: Recheck today's complaints Discharge Instructions: - Discharge Summary Sheet ec2 - Kidney Stones ec2 Forms: - Medication Reconciliation Form ec2 - Antibiotic Education ec2 - Prescription Opioid Use ec2 - Patient Portal Instructions ec2 - Leadership Thank You Letter ec2 Prescriptions: - acetaminophen-codeine 300-30 mg Oral tablet - take 1 tablet ORAL route 3 times per day; 15 tablet; Refills: 0, Product ec2 Selection Permitted Signatures: Dispatcher [employer] Cori Patel RN RN cm10 Ayana Guajardo RN RN me1 Paul Marquez MD MD ec2 Corrections: (The following items were deleted from the chart) 14:58 14:58 CBC+H.LAB.BRZ ordered. EDMS EDMS 14:58 14:58 COMPREHENSIVE METABOLIC PANEL+C.LAB.BRZ ordered. EDMS EDMS 14:58 14:58 LIPASE+C.LAB.BRZ ordered. EDMS EDMS 14:58 14:58 Urinalysis+U.LAB.BRZ ordered. EDMS EDMS 14:58 14:58 Abdomen Pelvis Wo Con+CT.RAD.BRZ ordered. EDMS EDMS
[2024-08-10] MEDS ORDERED: HYDROCODONE/APAP 5/325 MG TAB ONE (18:01)
[2024-08-10 21:40] VITALS: O2SAT 97
[2024-08-10 21:42] VITALS: BP 122/53; TEMP 98.4
== END 2024-08-10 18:15 | disposition home or self-care (01) ==
LOC: ER 14:46
DX: N20.1 Calculus of ureter (principal); Z87.442 Personal history of urinary calculi; E11.9 Type 2 diabetes mellitus without complications; I10 Essential (primary) hypertension
CPT/HCPCS: 85025; 81001; 36415; 83690; 80053; 74176; 96375; 96374; 99284; J2405

== ENCOUNTER 2024-09-02 06:23 | Day surgery (SDC) | payer OTHER ==
[2024-08-28 14:30] LABS: PT Prothrombin Time 11.5 SECONDS (9.4-12.5); Protime INR 1.03
[2024-09-02] MEDS ORDERED: NA CHLORIDE 0.9% 1,000 ML ONE (07:01)
[2024-09-02] MEDS ORDERED: SUCCINYLCHOLINE 20 MG/ML (10 ML) IV ONE (07:10)
[2024-09-02] MEDS ORDERED: propofoL 1,000 MG/100 ML VIAL IV ONE ×2 (07:10→07:11)
[2024-09-02] MEDS ORDERED: FENTANYL CITR 100 MCG/2 ML ONE (07:21)
[2024-09-02] MEDS ORDERED: LIDOCAINE 1% MPF 5 ML VIAL ONE (07:21)
[2024-09-02] MEDS ORDERED: propofoL 200 MG/20 ML VIAL IV ONE ×3 (07:21→10:07)
[2024-09-02] MEDS ORDERED: ONDANSETRON 4 MG/2 ML VIAL ONE (07:21)
[2024-09-02] MEDS ORDERED: SUGAMMADEX SODIUM 200 MG/2 ML VIAL IV ONE (07:36)
[2024-09-02] MEDS ORDERED: EPHEDRINE SULF 50 MG/ML VIAL ONE (08:55)
[2024-09-02] MEDS: CEFAZOLIN SODIUM 2 GM/VIAL ONE (08:59)
[2024-09-02] MEDS ORDERED: dexAMETHasone 10 MG/ML VIAL ONE (08:59)
--- NOTE | 2024-09-02 10:32 | RAD REPORT ---
Fluoroscopy time: 0.25 minutes
[2024-09-02] MEDS ORDERED: PHENAZOPYRIDINE 100MG TAB PO ONE (10:39)
[2024-09-02] MEDS ORDERED: HYDROCODONE/APAP 5/325 MG TAB PO PRN (10:39)
--- NOTE | 2024-09-02 11:00 | P.OP ---
Date of Service: 09/02/24 Preoperative diagnoses: Steinstrasse Right obstructive ureterolithiasis Right hydronephrosis s/p right ESWL for large volume right nephrolithiasis 1.6 cm Postoperative diagnoses: Steinstrasse Right obstructive ureterolithiasis Right hydronephrosis s/p right ESWL for large volume right nephrolithiasis 1.6 cm Principal procedures: Cystoscopy Right retrograde pyelography Right ureteroscopy with laser lithotripsy -extensive Right ureteroscopic stone basketing -extensive Right pyeloscopy Right 7 Norwegian ureteral stent placement Bladder irrigation Indication for procedure: 78-year-old woman with bilateral large volume nephrolithiasis. She underwent management of the left-sided stones using the sandwich ESWL approach, and subsequently underwent ESWL of the right side kidney stone, which was 1.6 cm in diameter. Following the procedure, she had significant hydronephrosis and obstruction with Steinstrasse noted throughout multiple portions of the ureter. After a period of time spent trying to pass the stone dust, she was unsuccessful; so surgical intervention was recommended. Procedure note: The patient was consented in the preoperative holding area before being transferred to the operative suite where general anesthesia was induced. She was given Ancef 2 g IV antimicrobial prophylaxis, and pneumoboots were provided for DVT prophylaxis. She was placed in the lithotomy position, padded and secured to the table appropriately. Her genitalia was prepped with Hibiclens and she was draped in standard fashion. The case was begun using a 22 Norwegian rigid cystoscope to traverse the urethra and into the bladder with ease. The bladder was surveyed and there were no papillary mucosal lesions. She did have some small stone dust noted posteriorly. The ureteral orifices were orthotopic in location, and the right ureteral orifice was cannulated using the tip of a 5 Norwegian ureteral access catheter, noting it encountered a point of obstruction within 1 or 2 cm of entry into the ureteral orifice. A retrograde pyelography was then performed. Right retrograde pyelogram: Using a 70: 30 mixture of Omnipaque and saline, contrast was injected via the lumen of the 5 Norwegian ureteral access catheter after spot fluoroscopic imagery had been obtained. The imagery did identify radiopaque densities within the distal ureter near the UVJ at the tip of the 5 Norwegian ureteral access catheter, an additional 2 to 3 cm of radiodense stone material in the mid proximal ureter. No radiopaque calculi were visible in the renal pelvis or calyces at this time. I attempted to pass a sensor wire up her ureter into her collecting system, but this was thwarted due to the extensive degree of Steinstrasse associated obstruction in the distal ureter. As a result, I utilized the semirigid ureteroscope and under direct vision traverse the urethra into her bladder and into the distal ureter. I immediately encountered some stone fragments and began using a laser fiber at 0.8 J and 10 Hz to begin to fragment those stone fragments. Some fragments were hard; and the power was increased to 1 J and 15 Hz after increasing the hertz to 15 Hz at 0.8 J with minimal additional success. This was more effective at fragmenting those stones, which were zaheer hard in appearance, but due to the sheer volume of the stone dust in that location, after fragmenting most of the the larger stones, I still had to utilize additional laser lithotripsy and a 1.9 Norwegian 0 tip nitinol basket to try to remove some of that stone dust just to visualize more into the proximal ureter. I attempted I then passed a sensor wire further into the proximal ureter, but it again obstructed and coiled at the degree of stone density material present in the mid proximal ureter. As a result, I advanced the ureteroscope over a Bentson guidewire into the proximal ureter encountering those stone fragments which I again fragmented into smaller dust using the laser fiber at the settings mentioned above. Several centimeters of stone fragments were encountered and dusted in this location, and I utilized the stone basket again to remove several of those fragments just to enable better visualization. Finally, after getting through the massive stone burden in that location, I was able to successfully pass a sensor wire via the ureteroscope all the way into the collecting system as evidenced fluoroscopically. Leaving the sensor wire in place, I then passed the semirigid ureteroscope back into the ureter to attempt to basket additional stone fragments, and after doing this, I passed the Bentson guidewire via the ureteroscope again into the collecting system coiled alongside the indwelling sensor safety wire. At this point, I then passed a ureteral access sheath, 12 x 14 Norwegian, into the mid ureter where it reached a point of obstruction. I then backloaded the flexible ureteroscope over the Bentson guidewire and was able to navigated beyond this point of obstruction into the upper pole of the right kidney as evidenced fluoroscopically. I then surveyed through the calyces of the kidney ensuring I reached most of the calyces fluoroscopically. It was difficult to visualize the collecting system definitively because of some clot burden present within the mid and lower pole calyces. However no obvious stone was visible at this time. Again, fluoroscopically, no significant stone burden in the kidney was identifiable. So I backed the flexible ureteroscope back into the renal pelvis, and using the basket again, grasped smaller fragments that had now migrated into the proximal ureter and brought those fragments out with multiple passes of the ureteroscope out of the ureteral access sheath, collecting the fragments for chemical a nalysis. Once most of the fragments and dust had been removed, I then backed the ureteral access sheath out removing any additional stone fragments on the way out with the basket. I then backloaded the cystoscope over the indwelling safety wire and passed a 7 Norwegian by 24 cm double-J ureteral stent into the collecting system with ease, with a coil observed fluoroscopically in the upper pole and 1 cystoscopically formed in her bladder. I then decompressed her bladder of fluid and urine and attempted to collect some of the stone dust material. There was some clot within the bladder that would not come out of the 22 Norwegian rigid cystoscope; so I utilized an Ilich evacuator to irrigate the bladder and remove the clot containing some stone dust within. Additional stone dust was irrigated out from the bladder or removed under direct visualization. I then decompressed her bladder completely of fluid and urine before removing the cystoscope. She was then taken out of the lithotomy position, awakened from general anesthesia, transferred to a stretcher, and then transferred to the recovery room in good condition. Complications: None Discharge disposition: I would like for her to have a KUB done to assess for any significant residual stone burden present in either kidney which might benefit from additional ESWL. Otherwise, we will plan to remove the right ureteral stent cystoscopically in the clinic in 2 to 3 weeks. Metabolic stone profile assessment will be required about a month after the stent has been extracted. Findings and Operative Technique
[2024-09-02 13:02] VITALS: TEMP 97.5; O2SAT 99
[2024-09-02 13:05] VITALS: BP 140/58
== END 2024-09-02 11:56 | disposition home or self-care (01) ==
LOC: OR 06:23
PROVIDERS: ATTEND Urology
PROC: 0T768DZ Dilation of Right Ureter with Intraluminal Device, Via Natural or Artificial Opening Endoscopic (ICD-10-PCS; 2024-09-02)
PROC: 0TC68ZZ Extirpation of Matter from Right Ureter, Via Natural or Artificial Opening Endoscopic (ICD-10-PCS; principal; 2024-09-02 07:30)
DX: N13.2 Hydronephrosis with renal and ureteral calculous obstruction (principal)
CPT/HCPCS: 36415; 85610; 82947; 88300; 82360; 74450; 51610; 52356; J2704 ×5; J2003; J3010; J1100; J2405; J7030